=== PATIENT | male | born 1940 | race Caucasian/White ===

== ENCOUNTER 2023-03-13 16:32 | Inpatient (IN) ==
[2023-03-13] MEDS ORDERED: LIDOCAINE 5% 1 PATCH TD STA (16:43)
--- NOTE | 2023-03-13 16:47 | ED Triage Note ---
Date of Service March 13, 2023 History of Present Illness This patient was briefly evaluated while in triage. An abbreviated physical exam was performed. This patient is a 82-year-old Male who presents to the ED for evaluation of right sided posterior rib pain. He tripped and fell while walking on the [place]. On eliquis. did not hit head. no lightheadedness or dizziness. Physical Exam CONSTITUTIONAL: appears to be in pain, unable to sit down SKIN: pink, warm, dry CARDIAC: regular rate and rhythm RESPIRATORY: in no respiratory distress, lungs clear to auscultation ABDOMEN: no focal tenderness, no CVA tenderness MSK: tenderness in R posterior ribs Initial orders for labs and / or imaging were placed and patient was placed in the waiting area until a bed is available. Please see further documentation for the full ED course. MDM / Impression Impression Impression: Fall from standing, Multiple closed fractures of ribs of right side
[2023-03-13] MEDS ORDERED: fentaNYL citrate PF 100 MCG/2 ML VIAL IV STA ×2 (17:00→18:38)
[2023-03-13 17:17] LABS: Basophils # (auto) 0.06 K/uL (0.00-0.20); Basophils % (auto) 0.4 %; Eosinophils # (auto) 0.04 K/uL (0.00-0.50); Eosinophils % (auto) 0.3 %; Hematocrit (blood only) 43.7 % (42.0-52.0); Hemoglobin 14.3 g/dl (14.0-18.0); Immature Granulocytes # (auto) 0.09 K/uL (0.01-0.20); Immature Granulocytes % (auto) 0.6 %; Lymphocytes # (auto) 1.83 K/uL (1.20-3.40); Lymphocytes % (auto) 11.9 %; Mean Corpuscular Hemoglobin 29.4 pg (25.0-34.0); Mean Corpuscular Hgb Conc 32.7 g/dL (32.0-36.0); Mean Corpuscular Volume 89.9 fL (80.0-100.0); Mean Platelet Volume 9.3 fL (9.4-12.4); Monocytes # (auto) 1.07 K/uL (0.11-0.59); Neutrophils # (auto) 12.27 K/uL (1.40-6.50); Neutrophils % (auto) 79.8 %; Platelet Count 236 K/uL (130-400); RDW Coefficient of Variation 13.2 % (11.5-14.5); RDW Standard Deviation 43.3 fL (36.4-46.3); Red Blood Count 4.86 M/uL (4.70-6.10); White Blood Count 15.36 K/ul (4.8-10.8)
--- NOTE | 2023-03-13 17:20 | Emergency Department Note ---
Impression & Plan Fall from standing, Multiple closed fractures of ribs of right side ED Provider Note HISTORY OF PRESENT ILLNESS: Patient is an 82-year-old male presenting with right posterior shoulder pain after a fall from standing. Patient reports he was outside walking on his sidewalk in front of his apartment when he lost his footing and fell, landing on his right side. Denies striking his head or loss of consciousness. He is on Eliquis. He states that the fall happened around 1300 today and pain has been progressively worsening over the last few hours. He reports that certain movements make the pain worse. He also states that the pain is significantly worse when he coughs or tries to take a deep breath. He denies any abdominal pain, nausea or vomiting. Denies any chest pain. He denies passing out, chest pain or shortness of breath prior to the fall. He states he just lost his footing. ROS: as above PHYSICAL EXAM: Constitutional: Patient appears in no acute distress. HENT: Head: Normocephalic and atraumatic. Eyes: EOMI, PERRL Mouth/Throat: Mucous membranes moist. Neck: Trachea midline. Neck supple. No midline cervical spine tenderness to palpation. Cardiovascular: Tachycardic with irregular rhythm. No murmurs, rubs or gallops. Intact distal pulses. Pulmonary/Chest: No respiratory distress. Breath sounds clear and equal bilaterally. No wheezes or rales. No chest wall tenderness to palpation. Abdominal: Abdomen soft, no tenderness, rebound or guarding. Back: No midline spinal tenderness, no paraspinal tenderness, no CVA tenderness. Right posterior scapular region is tender to palpation. No ecchymosis or swelling to the area. Musculoskeletal: No edema, tenderness or deformity noted. Skin: Warm and dry. No rash, erythema, pallor or cyanosis Psychiatric: Appropriate mood and affect for situation. Neurological: Alert and keenly responsive. CN II-XII grossly intact, moving all extremities equally and fully. MDM: - Vitals signs showed hypertension and tachycardia - History obtained via patient. Patient presents with right posterior shoulder pain after fall from standing. Patient reports he was walking outside on sidewalk when he lost his footing and fell, landing on his right posterior side. Denies striking his head or loss of consciousness. He is on Eliquis. Reports the fall happened around 1300 today and the pain has been getting progressively worse over the last few hours. He reports certain movements make the pain worse and he has significant pain when he coughs or takes a deep breath. Denies any anterior chest pain. He denies any syncope or chest pain or shortness of breath prior to the fall. - Chronic conditions affecting care: HLD; CKD; COPD; HTN; Afib - Differential diagnoses include, but are not limited to: Rib fracture; pneumothorax; ACS; pneumonia; scapular fracture - Order placed for continuous cardiac monitoring. At this time, monitor showed rate of 98 bpm with normal sinus rhythm, per my interpretation. - External medical records reviewed. Pulmonary visit note dated 11/09/2022 was reviewed. Patient has a history of lung cancer and COPD with emphysema and follows for these pathologies at that clinic. - Laboratory workup interpreted by myself showed leukocytosis (WBC 15.36) with left shift; stable electrolytes; CKD - CXR negative for pneumonia, per my interpretation - CT head wo contrast negative for acute intracranial pathology. - CT cervical spine wo contrast negative for injury. - CT lumbar/thoracic spine wo contrast negative for acute injury. - CT chest wo contrast showed right-sided posterior lateral third, fourth and fifth rib fractures. - Patient was initially given 50 mcg IV fentanyl for pain control on arrival to ER. On reassessment, he is still having significant discomfort. Given additional 50 mcg of IV fentanyl. Given a lidocaine patch and 4 mg IV zofran for developed nausea. On further assessment, the patient is still complaining of significant pain. - Discussion was had with home day care provider about patient's case and need for admission - Hospitalist consulted for admission - [facility] 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 jimenez, [facility] [place] Self-catheterizes urinary bladder COPD (chronic obstructive pulmonary disease) daily and prn inh Glaucoma both eyes Lung cancer dx 2019, sx and chemo Hypertension hx Surgical History History of loop recorder 12/2021, [place] w/dr. jimenez Hx of hernia repair as a baby Hx of colonoscopy Hx of bilateral cataract extraction History of lobectomy of lung 2019, lt lower lobe due to cancer, also received chemo Hx of transurethral resection of prostate Family History Mother Lung cancer Diabetes Father Lung cancer Social History Smoking Status: Never smoker Tobacco Type: Cigarettes Age Started Using Tobacco: 20; Age Quit Using Tobacco: 67; packs per day: 2; Second Hand Exposure: Yes (hx); Do You Dip or Chew Tobacco: No; Hx Alcohol Use: Yes (quit years ago) Hx Substance Use: No Preferred Language: Latvian Communication Ability: Effective Photograph Printer Required: No Beliefs That Will Affect Care: None marital status: Single Current Living Situation: Alone current occupational status: retired Feels Safe at Home: Yes Assistive Devices: Denture - Upper, Denture - Lower and Glasses Allergies Allergies Allergy/AdvReac Type Severity Reaction Status Date / Time simvastatin [From Zocor] Allergy Unknown myalgia Verified 03/13/23 19:24 Home Meds Home Medications Medication Instructions Recorded Confirmed atorvastatin 20 mg tablet 10 mg PO 11/05/21 03/13/23 famotidine 20 mg tablet 20 mg PO QA 11/05/21 03/13/23 apixaban 2.5 mg tablet (Eliquis) 2.5 mg PO BID 02/16/23 03/13/23 vitamins A,C,U-rssj-djwztx 2,148 2 tab PO BID 02/16/23 03/13/23 mcg-113 mg-45 mg-17.4 mg tablet (PreserVision AREDS) Previous Rx's Medication Instructions Recorded albuterol sulfate 90 mcg/actuation 2 puff inhalation Q6H PRN 11/09/22 aerosol inhaler Shortness Of Breath Or Wheezing #18 grams mometasone-formoterol HFA 100 2 puff inhalation BID #3 Inhalers 11/12/22 mcg-5 mcg/actuation aerosol inhaler (Dulera) Results & Data (ED) Vital Signs Vital Signs - 24 hr 03/13/23 16:35 03/13/23 17:51 03/13/23 19:08 Temperature 36.2 C L Temperature Source Temporal Artery Scan Pulse Rate 118 H Pulse Rate [Finger] 98 H 112 H Respiratory Rate 18 18 20 Respiratory Effort / Characteristics Non-Labored Non-Labored Spontaneous Respiratory Depth Normal Normal Respiratory Pattern Regular Regular Blood Pressure 160/89 H Blood Pressure [Right Arm] 118/62 122/84 Blood Pressure Mean 112 Blood Pressure Mean [Right Arm] 80 96 Pulse Oximetry 94 98 95 Oxygen Delivery Method Room Air Room Air Sepsis Recent Fever Within 48 Hours No Sepsis New/Unexplained Change in Mental Status N/A Sepsis Action Taken by Nursing No Action Required Laboratory Data 03/13/23 16:51 03/13/23 16:51 Lab Results 03/13/23 Range/Units 16:51 WBC 15.36 H (4.8-10.8) K/ul RBC 4.86 (4.70-6.10) M/uL Hgb 14.3 (14.0-18.0) g/dl Hct 43.7 (42.0-52.0) % MCV 89.9 (80.0-100.0) fL MCH 29.4 (25.0-34.0) pg MCHC 32.7 (32.0-36.0) g/dL RDW Std Deviation 43.3 (36.4-46.3) fL RDW Coeff of Jacque 13.2 (11.5-14.5) % Plt Count 236 (130-400) K/uL MPV 9.3 L (9.4-12.4) fL Immature Gran % (Auto) 0.6 % Neut % (Auto) 79.8 % Lymph % (Auto) 11.9 % Trinity % (Auto) 7.0 % Eos % (Auto) 0.3 % Baso % (Auto) 0.4 % Neut # (Auto) 12.27 H (1.40-6.50) K/uL Lymph # (Auto) 1.83 (1.20-3.40) K/uL Trinity # (Auto) 1.07 H (0.11-0.59) K/uL Eos # (Auto) 0.04 (0.00-0.50) K/uL Baso # (Auto) 0.06 (0.00-0.20) K/uL Immature Gran # (Auto) 0.09 (0.01-0.20) K/uL PT 11.9 (9.0-12.0) Seconds INR 1.1 (0.9-1.1) APTT 28.5 (21.0-31.0) Seconds PTT Ratio 1.0 Sodium 140 (136-145) mmol/L Potassium 4.5 (3.5-5.1) mmol/L Chloride 103 (98-107) mmol/L Carbon Dioxide 26 (21-32) mmol/L Anion Gap 11 (3-11) BUN 27 H (6-23) mg/dl Creatinine 2.22 H (0.6-1.4) mg/dl Est Cr Clr Drug Dosing Not Reportable Est GFR ( Amer) 31.3 ml/min Est GFR (Non-Af Amer) 27.0 ml/min BUN/Creatinine Ratio 12.2 (10-20) Glucose 142 H (70-99(Fasting)) mg/dl Calcium 10.2 (8.6-10.3) mg/dl Total Bilirubin 0.9 (0.2-1.0) mg/dl AST 18 (13-39) U/L ALT 11 (7-52) U/L Alkaline Phosphatase 136 H (34-104) U/L Total Protein 8.0 (6.0-8.3) gm/dl Albumin 4.4 (3.4-5.0) gm/dl Globulin 3.6 (2.5-4.0) gm/dl Albumin/Globulin Ratio 1.2 (0.9-2) Administered Medications Discontinued Medications Fentanyl Citrate (Fentanyl Citrate Pf 100 Mcg/2 Ml Vial) 50 mcg IV NOW STA Stop: 03/13/23 17:01 Last Admin: 03/13/23 17:09 Dose: 50 mcg Documented By: DONNA Lidocaine (Lidocaine 5% 1 Patch) 1 patch TD NOW STA Stop: 03/13/23 16:44 Last Admin: 03/13/23 17:09 Dose: 1 patch Documented By: DONNA Ondansetron HCl (Ondansetron Inj 2 Mg/Ml 2 Ml Vial) 4 mg IV NOW STA Stop: 03/13/23 18:39 Last Admin: 03/13/23 18:44 Dose: 4 mg Documented By: DONNA Imaging Data Radiologist's Impression: Cervical Spine CT 03/13/23 16:40 CT cervical spine wo con CLINICAL HISTORY: fall, landed on R side TECHNIQUE: Multidetector row helical CT of the cervical spine was performed without administration of intravenous contrast. Coronal and sagittal reformations were obtained. Automated dose lowering techniques and/or adjustment according to patient size were utilized for this exam. Comparison: None available at the time of this dictation. FINDINGS: No acute fractures or subluxations are identified. Degenerative changes are seen in the visualized spine. The alignment is normal. Soft tissues are unremarkable. IMPRESSION: Degenerative changes without evidence of acute bony injury. ACT 112: Negative or not required by law. Electronically signed by: Jamarcus Molina M.D. 03/13/2023 5:[address] 03/13/23 16:40 CT chest diagnostic wo con, CT thoracic spine wo con CLINICAL HISTORY: fall, R posterior rib pain TECHNIQUE: Multidetector row helical CT of the chest was performed. Coronal and sagittal reformations were obtained. Automated dose lowering techniques and/or adjustment according to patient size were utilized for this exam. Dedicated images of the thoracic spine were obtained. Comparison: Comparison is made to CT thorax 01/01/2022 FINDINGS: Lungs and pleura: Emphysema and bronchial wall thickening are seen. Patient is status post right lower lobectomy with pleural thickening and small left pleural effusion. Pleural calcifications are seen. Heart and pericardium: Heart size is normal. No pericardial effusion. Vessels: Severe atherosclerotic changes in the aorta and coronary arteries. Mediastinum and iman: Subcentimeter lymph nodes are seen. Chest wall and lower neck: Unremarkable. Abdomen: A hiatal hernia is seen. Bones: Degenerative changes of the thoracic spine. Old healed rib fractures are seen. Addition, there are acute nondisplaced fractures of the right fourth, fifth, and sixth ribs posterolaterally. IMPRESSION: Nondisplaced fractures of the right posterolateral ribs are seen as above with no evidence of pneumothorax. ACT 112: Negative or not required by law. Electronically signed by: Jamarcus Molina M.D. 03/13/2023 6:[address] 03/13/23 16:40 CT head/brain wo con CLINICAL HISTORY: fall, landed R side, on eliquis Technique: Contiguous axial CT images of the head were acquired from the base of the skull to the vertex without intravenous contrast administration. Images were viewed in brain, subdural and bone windows. Automated dose lowering techniques and/or adjustment according to patient size were utilized for this exam. Comparison: None available at the time of this dictation. Findings: The ventricles, basal cisterns, and cerebral sulci are normal. There is no acute intracranial hemorrhage or evidence of acute territorial infarction. Neither mass effect, shift of the midline structures, nor abnormal extra-axial fluid collections are shown. Imaged portions of the paranasal sinuses and mastoid air cells are clear. The orbits appear normal. There are no acute fractures of the calvaria or scalp swelling. Impression: No acute intracranial hemorrhage, no evidence of acute territorial infarction or other acute intracranial disease process. ACT 112: Negative or not required by law. Electronically signed by: Jamarcus Molina M.D. 03/13/2023 5:[address] 03/13/23 16:40 CT lumbar spine wo con CLINICAL HISTORY: fall, R sided pain TECHNIQUE: Multidetector row helical CT of the lumbar spine was performed without administration of intravenous contrast. Coronal and sagittal reformations were obtained. Automated dose lowering techniques and/or adjustment according to patient size were utilized for this exam. Comparison: None available at the time of this dictation. FINDINGS: For counting purposes, the last complete intervertebral disc space is considered L5-S1. No acute fractures are identified. Degenerative changes are noted in the visualized spine. Vertebral body alignment is within normal limits. Surrounding soft tissues are unremarkable. IMPRESSION: Degenerative changes without evidence of acute bony injury. ACT 112: Negative or not required by law. Electronically signed by: Jamarcus Molina M.D. 03/13/2023 6:[address] 03/13/23 16:40 CT chest diagnostic wo con, CT thoracic spine wo con CLINICAL HISTORY: fall, R posterior rib pain TECHNIQUE: Multidetector row helical CT of the chest was performed. Coronal and sagittal reformations were obtained. Automated dose lowering techniques and/or adjustment according to patient size were utilized for this exam. Dedicated images of the thoracic spine were obtained. Comparison: Comparison is made to CT thorax 01/01/2022 FINDINGS: Lungs and pleura: Emphysema and bronchial wall thickening are seen. Patient is status post right lower lobectomy with pleural thickening and small left pleural effusion. Pleural calcifications are seen. Heart and pericardium: Heart size is normal. No pericardial effusion. Vessels: Severe atherosclerotic changes in the aorta and coronary arteries. Mediastinum and iman: Subcentimeter lymph nodes are seen. Chest wall and lower neck: Unremarkable. Abdomen: A hiatal hernia is seen. Bones: Degenerative changes of the thoracic spine. Old healed rib fractures are seen. Addition, there are acute nondisplaced fractures of the right fourth, fifth, and sixth ribs posterolaterally. IMPRESSION: Nondisplaced fractures of the right posterolateral ribs are seen as above with no evidence of pneumothorax. ACT 112: Negative or not required by law. Electronically signed by: Jamarcus Molina M.D. 03/13/2023 6:22 PM Chest X-Ray 03/13/23 17:00 XR chest 1V portable CLINICAL HISTORY: trauma; right sided posterior chest pain TECHNIQUE: Single frontal radiograph of the chest was obtained. Comparison: Comparison is made to chest radiograph 11/30/2021 FINDINGS: A loop recorder is seen. Calcified aortic knob is seen. Left retrocardiac airspace opacity is seen. Left pleural effusion is seen. Old healed right rib fractures are seen. IMPRESSION: Left pleural effusion is seen with underlying airspace opacity likely representing atelectasis. Attention on CT chest is recommended. ACT 112: Negative or not required by law. Electronically signed by: Jamarcus Molina M.D. 03/13/2023 5:26 PM Discharge Plan Visit Data Chief Complaint: Fall Stated Complaint: FALL/BACK PAIN ED Provider: Lesly Hernandez Discharge Problem: Fall from standing, Multiple closed fractures of ribs of right side Forms Stand Alone Forms: [facility] Prescriptions Prescriptions: No Action Dulera 100-5 mcg/actuation HFA aerosol inhaler 2 puff inhalation BID Qty: 3 3RF Eliquis 2.5 mg tablet 2.5 mg PO BID albuterol sulfate 90 mcg/actuation HFA aerosol inhaler 2 puff inhalation Q6H PRN (Reason: Shortness Of Breath Or Wheezing) Qty: 18 3RF atorvastatin 20 mg tablet 10 mg PO HS famotidine 20 mg tablet 20 mg PO QAM PreserVision AREDS 2,148 mcg-113 mg-45 mg-17.4mg Tablet 2 tab PO BID Rx Instructions: administer with AM and PM meals Referrals Referrals: Mir Francis, RESEARCH AND DEVELOPMENT MANAGER-C [Primary Care Provider] -
[2023-03-13 17:27] LABS: Alanine Aminotransferase 11 U/L (7-52); Albumin Globulin Ratio 1.2 (0.9-2); Albumin Level 4.4 gm/dl (3.4-5.0); Alkaline Phosphatase 136 U/L (34-104); Anion Gap 11 (3-11); Aspartate Aminotransferase 18 U/L (13-39); BUN Creatinine Ratio 12.2 (10-20); Bilirubin,Total 0.9 mg/dl (0.2-1.0); Blood Urea Nitrogen 27 mg/dl (6-23); Calcium 10.2 mg/dl (8.6-10.3); Carbon Dioxide 26 mmol/L (21-32); Chloride 103 mmol/L (98-107); Est GFR (African American) 31.3 ml/min; Globulin 3.6 gm/dl (2.5-4.0); Glucose 142 mg/dl (70-99(Fasting)); Potassium 4.5 mmol/L (3.5-5.1); Sodium 140 mmol/L (136-145)
--- NOTE | 2023-03-13 17:28 | XRay Report ---
XR chest 1V portable CLINICAL HISTORY: trauma; right sided posterior chest pain TECHNIQUE: Single frontal radiograph of the chest was obtained. Comparison: Comparison is made to chest radiograph 11/30/2021 FINDINGS: A loop recorder is seen. Calcified aortic knob is seen. Left retrocardiac airspace opacity is seen. L eft pleural effusion is seen. Old healed right rib fractures are seen. IMPRESSION: Left pleural effusion is seen with underlying airspace opacity likely representing atelectasis. Atten tion on CT chest is recommended. ACT 112: Negative or not required by law. Electronically signed by: Jamarcus Molina M.D. 03/13/2023 5:26 PM
[2023-03-13 17:40] LABS: INR 1.1 (0.9-1.1); Partial Thromboplastin Time 28.5 Seconds (21.0-31.0); Prothrombin Time 11.9 Seconds (9.0-12.0)
--- NOTE | 2023-03-13 17:55 | CT Scan Report ---
CT head/brain wo con CLINICAL HISTORY: fall, landed R side, on eliquis Technique: Contiguous axial CT images of the head were acquired from the base of the skull to the jesus lori without intravenous contrast administration. Images were viewed in brain, subdural and bone windo ws. Automated dose lowering techniques and/or adjustment according to patient size were utilized for this exam. Comparison: None available at the time of this dictation. Findings: The ventricles, basal cisterns, and cerebral sulci are normal. There is no acute intracranial hemorrh age or evidence of acute territorial infarction. Neither mass effect, shift of the midline structures , nor abnormal extra-axial fluid collections are shown. Imaged portions of the paranasal sinuses and mastoid air cells are clear. The orbits appear normal. There are no acute fractures of the calvaria or scalp swelling. Impression: No acute intracranial hemorrhage, no evidence of acute territorial infarction or other acute intracra nial disease process. ACT 112: Negative or not required by law. Electronically signed by: Jamarcus Molina M.D. 03/13/2023 5:54 PM
--- NOTE | 2023-03-13 18:00 | CT Scan Report ---
CT cervical spine wo con CLINICAL HISTORY: fall, landed on R side TECHNIQUE: Multidetector row helical CT of the cervical spine was performed without administration of intravenous contrast. Coronal and sagittal reformations were obtained. Automated dose lowering techn iques and/or adjustment according to patient size were utilized for this exam. Comparison: None available at the time of this dictation. FINDINGS: No acute fractures or subluxations are identified. Degenerative changes are seen in the visualized sp ine. The alignment is normal. Soft tissues are unremarkable. IMPRESSION: Degenerative changes without evidence of acute bony injury. ACT 112: Negative or not required by law. Electronically signed by: Jamarcus Molina M.D. 03/13/2023 5:58 PM
--- NOTE | 2023-03-13 18:24 | CT Scan Report ---
CT chest diagnostic wo con, CT thoracic spine wo con CLINICAL HISTORY: fall, R posterior rib pain TECHNIQUE: Multidetector row helical CT of the chest was performed. Coronal and sagittal reformations were obtained. Automated dose lowering techniques and/or adjustment according to patient size were u tilized for this exam. Dedicated images of the thoracic spine were obtained. Comparison: Comparison is made to CT thorax 01/01/2022 FINDINGS: Lungs and pleura: Emphysema and bronchial wall thickening are seen. Patient is status post right lowe r lobectomy with pleural thickening and small left pleural effusion. Pleural calcifications are seen. Heart and pericardium: Heart size is normal. No pericardial effusion. Vessels: Severe atherosclerotic changes in the aorta and coronary arteries. Mediastinum and iman: Subcentimeter lymph nodes are seen. Chest wall and lower neck: Unremarkable. Abdomen: A hiatal hernia is seen. Bones: Degenerative changes of the thoracic spine. Old healed rib fractures are seen. Addition, there are acute nondisplaced fractures of the right fourth, fifth, and sixth ribs posterolaterally. IMPRESSION: Nondisplaced fractures of the right posterolateral ribs are seen as above with no evidence of pneumot horax. ACT 112: Negative or not required by law. Electronically signed by: Jamarcus Molina M.D. 03/13/2023 6:22 PM
--- NOTE | 2023-03-13 18:29 | CT Scan Report ---
CT lumbar spine wo con CLINICAL HISTORY: fall, R sided pain TECHNIQUE: Multidetector row helical CT of the lumbar spine was performed without administration of i ntravenous contrast. Coronal and sagittal reformations were obtained. Automated dose lowering techniq ues and/or adjustment according to patient size were utilized for this exam. Comparison: None available at the time of this dictation. FINDINGS: For counting purposes, the last complete intervertebral disc space is considered L5-S1. No acute fractures are identified. Degenerative changes are noted in the visualized spine. Vertebral body alignment is within normal limits. Surrounding soft tissues are unremarkable. IMPRESSION: Degenerative changes without evidence of acute bony injury. ACT 112: Negative or not required by law. Electronically signed by: Jamarcus Molina M.D. 03/13/2023 6:27 PM
[2023-03-13] MEDS ORDERED: ONDANSETRON INJ 2 MG/ML 2 ML VIAL IV STA (18:38)
[2023-03-13] MEDS ORDERED: HYDROCODONE/ACETAMOPHEN 5/325MG TAB PO PRN (20:44)
--- NOTE | 2023-03-13 20:53 | History & Physical Report ---
Date of Service March 13, 2023 Assessment & Plan (1) Multiple closed fractures of ribs of right side: (2) Fall from standing: (3) Acute kidney injury superimposed on chronic kidney disease: (4) History of loop recorder: (5) COPD with emphysema: (6) BPH NOS w ur obs/LUTS: (7) Neurogenic bladder: (8) Stage 3b chronic kidney disease: (9) COPD (chronic obstructive pulmonary disease): (10) Atrial fibrillation: Plan Multiple rib fractures on right side involving fourth, fifth and sixth posterior lateral ribs- Causing splinting when breathing, with audible rattling and mucous clearing issues Acetaminophen 650 mg by mouth every 6 hours as needed for mild pain or fever Hopkins 5/325, 1 every 6 hours as needed for moderate pain Hopkins 5/325, 2 every 6 hours as needed for severe pain Continue Lidoderm patch begun in ED COPD with emphysema/acute on chronic respiratory failure with hypoxia- Continue Breo elliptica 1 puff daily DuoNebs every 2 hours as needed Guaifenesin extended release 1200 mg p.o. twice daily Continue incentive spirometry Patient is having significant issues with taking a deep breath due to rib cage pain, and is at risk for secondary pneumonias. Continue incentive spirometry Atrial fibrillation- Continue apixaban 2.5 mg p.o. twice daily Acute kidney injury superimposed on CKD- Creatinine 2.22, with base range 1.91-2.47 Repeat laboratories in a.m. Neurogenic bladder- Patient straight caths about every 6 hours at home Patient with Wood catheter placed while in hospital for ease of care while having respiratory difficulties History of Present Illness Chief Complaint: The patient presents to the emergency department after a ground-level fall that occurred while he was outside walking on the sidewalk, had lost his footing and fell, landing on his right side. Primary Care Provider: Mir Francis, BREE-C The patient is an 82-year-old male with a past medical history including vitamin D deficiency, CKD, elevated PSA, ex-smoker, COPD with emphysema, BPH with LUTS, neurogenic bladder requiring straight cathing approximately every 6 hours, hypertension, lung cancer, and atrial fibrillation on apixaban. The patient presents to the emergency department with right sided chest wall pain after the fall as noted above. Chest x-ray revealed right fourth, fifth and sixth posterior lateral rib fractures. Otherwise, CT scan of the thoracic spine, lumbar spine, cervical spine and head were all normal except for the noted rib fractures Allergies Allergy/AdvReac Type Severity Reaction Status Date / Time simvastatin [From Zocor] Allergy Unknown myalgia Verified 03/13/23 19:24 Home Medications Medication Instructions Recorded Confirmed Type atorvastatin 20 mg tablet 10 mg PO HS 11/05/21 03/13/23 History famotidine 20 mg tablet 20 mg PO QAM 11/05/21 03/13/23 History albuterol sulfate 90 mcg/actuation 2 puff inhalation Q6H PRN 11/09/22 03/13/23 Rx aerosol inhaler Shortness Of Breath Or Wheezing #18 grams mometasone-formoterol HFA 100 2 puff inhalation BID #3 Inhalers 11/12/22 03/13/23 Rx mcg-5 mcg/actuation aerosol inhaler (Dulera) apixaban 2.5 mg tablet (Eliquis) 2.5 mg PO BID 02/16/23 03/13/23 History vitamins A,C,Z-pyhl-pexzjx 2,148 2 tab PO BID 02/16/23 03/13/23 History mcg-113 mg-45 mg-17.4 mg tablet (PreserVision AREDS) Past Med/Surg History Medical History Macular degeneration of right eye Shortness of breath on exertion GERD (gastroesophageal reflux disease) Hyperlipidemia 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 jimenez, mnp Self-catheterizes urinary bladder COPD (chronic obstructive pulmonary disease) daily and prn inh Glaucoma both eyes Lung cancer dx 2019, sx and chemo Hypertension hx Surgical History History of loop recorder 12/2021, [place] w/dr. jimenez Hx of hernia repair as a baby Hx of colonoscopy Hx of bilateral cataract extraction History of lobectomy of lung 2019, lt lower lobe due to cancer, also received chemo Hx of transurethral resection of prostate Family History Mother Lung cancer Diabetes Father Lung cancer Social History Smoking Status: Former smoker Tobacco Type: Cigarettes Age Started Using Tobacco: 20; Age Quit Using Tobacco: 67; packs per day: 2; Cigarettes Per Day: 2 packs a day.; Second Hand Exposure: No; Do You Dip or Chew Tobacco: No; Tobacco Cessation Education Requested by Patient: No Hx Alcohol Use: No Hx Substance Use: No Preferred Language: Maltese Communication Ability: Effective Hand Sprayer Required: No Beliefs That Will Affect Care: None marital status: Single Current Living Situation: Alone current occupational status: retired Other Information That Helps Us Care for You: No Feels Safe at Home: Yes Safety Concerns: Feels Safe At This Time Assistive Devices: Denture - Upper, Denture - Lower and Glasses Review of Systems Review of Systems: The patient denies chest pain, palpitations, lower extremity swelling, sore throat, fevers, chills, sweats, nausea, vomiting, diarrhea , constipation, abdominal pain, pelvic pain, blood in urine or stool, dysuria, urinary frequency or urgency, lightheadedness, dizziness, headache, memory loss, loss of consciousness, rash, abnormal bruising or bleeding, focal or generalized weakness, numbness or tingling in arms or legs, generalized arthralgias or myalgias, neck pain, or night sweats. The review of systems is otherwise negative other than for that already noted above, and at least 10 systems have been reviewed. Physical Exam Physical Exam: The patient is awake, alert and oriented 3, well developed and well nourished, normocephalic and atraumatic, lying in bed and in mild distress secondary to shortness of breath due to splinting HEENT--PERRL, EOMI, mucous membranes and oropharynx dry. Neck--supple. No JVD. No bruits. Thyroid normal, trachea midline, no adenopathy. Heart--normal S1 and S2. No murmurs, rubs or gallops. Lungs--coarse breath sounds throughout. Mild respiratory distress due to spli nting and intermittent difficulty with secretions. No accessory muscle use. Abdomen--normal bowel sounds and soft. Nontender. Nondistended, no hernias or masses, no organomegaly. Extremities--no cyanosis or clubbing. No edema. Dermatologic--normal skin turgor, normal color, no abnormal lymph nodes, no rash. Neurologic--cranial nerves II through XII grossly intact. Rheumatologic--limited exam due to rib cage pain Psychiatric--normal affect. Results & Data Results & Data Vital Signs (Past 12 Hours) Vital Signs Temp Pulse Pulse Resp BP BP Pulse Ox 03/13/23 19:08 112 H 20 122/84 95 03/13/23 17:51 98 H 18 118/62 98 03/13/23 16:35 36.2 C L 118 H 18 160/89 H 94 O2 Del Method 03/13/23 19:08 Room Air 03/13/23 17:51 03/13/23 16:35 Room Air Laboratory Results Laboratory Results WBC 15.36 K/ul (4.8-10.8) H 03/13/23 16:51 RBC 4.86 M/uL (4.70-6.10) 03/13/23 16:51 Hgb 14.3 g/dl (14.0-18.0) 03/13/23 16:51 Hct 43.7 % (42.0-52.0) 03/13/23 16:51 MCV 89.9 fL (80.0-100.0) 03/13/23 16:51 MCH 29.4 pg (25.0-34.0) 03/13/23 16:51 MCHC 32.7 g/dL (32.0-36.0) 03/13/23 16:51 RDW Std Deviation 43.3 fL (36.4-46.3) 03/13/23 16:51 RDW Coeff of Jacque 13.2 % (11.5-14.5) 03/13/23 16:51 Plt Count 236 K/uL (130-400) 03/13/23 16:51 MPV 9.3 fL (9.4-12.4) L 03/13/23 16:51 Immature Gran % (Auto) 0.6 % 03/13/23 16:51 Neut % (Auto) 79.8 % 03/13/23 16:51 Lymph % (Auto) 11.9 % 03/13/23 16:51 Mcpherson % (Auto) 7.0 % 03/13/23 16:51 Eos % (Auto) 0.3 % 03/13/23 16:51 Baso % (Auto) 0.4 % 03/13/23 16:51 Neut # (Auto) 12.27 K/uL (1.40-6.50) H 03/13/23 16:51 Lymph # (Auto) 1.83 K/uL (1.20-3.40) 03/13/23 16:51 Mcpherson # (Auto) 1.07 K/uL (0.11-0.59) H 03/13/23 16:51 Eos # (Auto) 0.04 K/uL (0.00-0.50) 03/13/23 16:51 Baso # (Auto) 0.06 K/uL (0.00-0.20) 03/13/23 16:51 Immature Gran # (Auto) 0.09 K/uL (0.01-0.20) 03/13/23 16:51 PT 11.9 Seconds (9.0-12.0) 03/13/23 16:51 INR 1.1 (0.9-1.1) 03/13/23 16:51 APTT 28.5 Seconds (21.0-31.0) 03/13/23 16:51 PTT Ratio 1.0 03/13/23 16:51 Sodium 140 mmol/L (136-145) 03/13/23 16:51 Potassium 4.5 mmol/L (3.5-5.1) 03/13/23 16:51 Chloride 103 mmol/L (98-107) 03/13/23 16:51 Carbon Dioxide 26 mmol/L (21-32) 03/13/23 16:51 Anion Gap 11 (3-11) 03/13/23 16:51 BUN 27 mg/dl (6-23) H 03/13/23 16:51 Creatinine 2.22 mg/dl (0.6-1.4) H 03/13/23 16:51 Est Cr Clr Drug Dosing Not Reportable 03/13/23 16:51 Est GFR ( Amer) 31.3 ml/min 03/13/23 16:51 Est GFR (Non-Af Amer) 27.0 ml/min 03/13/23 16:51 BUN/Creatinine Ratio 12.2 (10-20) 03/13/23 16:51 Glucose 142 mg/dl (70-99(Fasting)) H 03/13/23 16:51 Calcium 10.2 mg/dl (8.6-10.3) 03/13/23 16:51 Total Bilirubin 0.9 mg/dl (0.2-1.0) 03/13/23 16:51 AST 18 U/L (13-39) 03/13/23 16:51 ALT 11 U/L (7-52) 03/13/23 16:51 Alkaline Phosphatase 136 U/L (34-104) H 03/13/23 16:51 Total Protein 8.0 gm/dl (6.0-8.3) 03/13/23 16:51 Albumin 4.4 gm/dl (3.4-5.0) 03/13/23 16:51 Globulin 3.6 gm/dl (2.5-4.0) 03/13/23 16:51 Albumin/Globulin Ratio 1.2 (0.9-2) 03/13/23 16:[address] 03/13/23 16:40 CT cervical spine wo con CLINICAL HISTORY: fall, landed on R side TECHNIQUE: Multidetector row helical CT of the cervical spine was performed without administration of intravenous contrast. Coronal and sagittal reformations were obtained. Automated dose lowering techniques and/or adjustment according to patient size were utilized for this exam. Comparison: None available at the time of this dictation. FINDINGS: No acute fractures or subluxations are identified. Degenerative changes are seen in the visualized spine. The alignment is normal. Soft tissues are unremarkable. IMPRESSION: Degenerative changes without evidence of acute bony injury. ACT 112: Negative or not required by law. Electronically signed by: Jamarcus Molina M.D. 03/13/2023 5:[address] 03/13/23 16:40 CT chest diagnostic wo con, CT thoracic spine wo con CLINICAL HISTORY: fall, R posterior rib pain TECHNIQUE: Multidetector row helical CT of the chest was performed. Coronal and sagittal reformations were obtained. Automated dose lowering techniques and/or adjustment according to patient size were utilized for this exam. Dedicated images of the thoracic spine were obtained. Comparison: Comparison is made to CT thorax 01/01/2022 FINDINGS: Lungs and pleura: Emphysema and bronchial wall thickening are seen. Patient is status post right lower lobectomy with pleural thickening and small left pleural effusion. Pleural calcifications are seen. Heart and pericardium: Heart size is normal. No pericardial effusion. Vessels: Severe atherosclerotic changes in the aorta and coronary arteries. Mediastinum and iman: Subcentimeter lymph nodes are seen. Chest wall and lower neck: Unremarkable. Abdomen: A hiatal hernia is seen. Bones: Degenerative changes of the thoracic spine. Old healed rib fractures are seen. Addition, there are acute nondisplaced fractures of the right fourth, fifth, and sixth ribs posterolaterally. IMPRESSION: Nondisplaced fractures of the right posterolateral ribs are seen as above with no evidence of pneumothorax. ACT 112: Negative or not required by law. Electronically signed by: Jamarcus Molina M.D. 03/13/2023 6:[address] 03/13/23 16:40 CT head/brain wo con CLINICAL HISTORY: fall, landed R side, on eliquis Technique: Contiguous axial CT images of the head were acquired from the base of the skull to the vertex without intravenous contrast administration. Images were viewed in brain, subdural and bone windows. Automated dose lowering techniques and/or adjustment according to patient size were utilized for this exam. Comparison: None available at the time of this dictation. Findings: The ventricles, basal cisterns, and cerebral sulci are normal. There is no acute intracranial hemorrhage or evidence of acute territorial infarction. Neither mass effect, shift of the midline structures, nor abnormal extra-axial fluid collections are shown. Imaged portions of the paranasal sinuses and mastoid air cells are clear. The orbits appear normal. There are no acute fractures of the calvaria or scalp swelling. Impression: No acute intracranial hemorrhage, no evidence of acute territorial infarction or other acute intracranial disease process. ACT 112: Negative or not required by law. Electronically signed by: Jamarcus Molina M.D. 03/13/2023 5:[address] 03/13/23 16:40 CT lumbar spine wo con CLINICAL HISTORY: fall, R sided pain TECHNIQUE: Multidetector row helical CT of the lumbar spine was performed without administration of intravenous contrast. Coronal and sagittal reformations were obtained. Automated dose lowering techniques and/or adjustment according to patient size were utilized for this exam. Comparison: None available at the time of this dictation. FINDINGS: For counting purposes, the last complete intervertebral disc space is considered L5-S1. No acute fractures are identified. Degenerative changes are noted in the visualized spine. Vertebral body alignment is within normal limits. Surrounding soft tissues are unremarkable. IMPRESSION: Degenerative changes without evidence of acute bony injury. ACT 112: Negative or not required by law. Electronically signed by: Jamarcus Molina M.D. 03/13/2023 6:[address] 03/13/23 16:40 CT chest diagnostic wo con, CT thoracic spine wo con CLINICAL HISTORY: fall, R posterior rib pain TECHNIQUE: Multidetector row helical CT of the chest was performed. Coronal and sagittal reformations were obtained. Automated dose lowering techniques and/or adjustment according to patient size were utilized for this exam. Dedicated images of the thoracic spine were obtained. Comparison: Comparison is made to CT thorax 01/01/2022 FINDINGS: Lungs and pleura: Emphysema and bronchial wall thickening are seen. Patient is status post right lower lobectomy with pleural thickening and small left pleural effusion. Pleural calcifications are seen. Heart and pericardium: Heart size is normal. No pericardial effusion. Vessels: Severe atherosclerotic changes in the aorta and coronary arteries. Mediastinum and iman: Subcentimeter lymph nodes are seen. Chest wall and lower neck: Unremarkable. Abdomen: A hiatal hernia is seen. Bones: Degenerative changes of the thoracic spine. Old healed rib fractures are seen. Addition, there are acute nondisplaced fractures of the right fourth, fifth, and sixth ribs posterolaterally. IMPRESSION: Nondisplaced fractures of the right posterolateral ribs are seen as above with no evidence of pneumothorax. ACT 112: Negative or not required by law. Electronically signed by: Jamarcus Molina M.D. 03/13/2023 6:22 PM Chest X-Ray 03/13/23 17:00 XR chest 1V portable CLINICAL HISTORY: trauma; right sided posterior chest pain TECHNIQUE: Single frontal radiograph of the chest was obtained. Comparison: Comparison is made to chest radiograph 11/30/2021 FINDINGS: A loop recorder is seen. Calcified aortic knob is seen. Left retrocardiac airspace opacity is seen. Left pleural effusion is seen. Old healed right rib fractures are seen. IMPRESSION: Left pleural effusion is seen with underlying airspace opacity likely representing atelectasis. Attention on CT chest is recommended. ACT 112: Negative or not required by law. Electronically signed by: Jamarcus Molina M.D. 03/13/2023 5:26 PM Code Status & VTE Plan Code Status Full code VTE Prophylaxis Plan VTE Prophylaxis will be ordered: Yes PG Care Time/CCT Total # of Minutes Spent Total Time Spent with Patient: Total time spent is greater than 50% in coordination of care (as documented) at patient's floor/unit and/or counseling patient: Coding Level of Care Code 87574 INT INP/OBS CARE 3/75MIN Diagnoses Multiple closed fractures of ribs of right side S22.41XA Fall from standing W19.XXXA Acute kidney injury superimposed on chronic kidney disease N17.9; N18.9 History of loop recorder Z98.890 COPD with emphysema J43.9 BPH NOS w ur obs/LUTS N40.1 Neurogenic bladder N31.9 Stage 3b chronic kidney disease N18.32 COPD (chronic obstructive pulmonary disease) J44.9 Paroxysmal atrial fibrillation I48.0 Atrial fibrillation type: paroxysmal (10) Atrial fibrillation Atrial fibrillation type: paroxysmal Qualified Code(s): I48.0 - Paroxysmal atrial fibrillation
[2023-03-13] MEDS: HYDROCODONE/ACETAMOPHEN 5/325MG TAB PO PRN (22:17)
[2023-03-13] MEDS ORDERED: ACETAMINOPHEN 325 MG TAB PO PRN (22:34)
[2023-03-13] MEDS ORDERED: ALBUTEROL HFA 8 GM INHALER INH PRN (22:34)
[2023-03-13] MEDS ORDERED: Patient's HEIGHT &/or WEIGHT Needed ONE (22:45)
[2023-03-14] MEDS: APIXABAN 2.5 MG TAB PO SCH ×3 (00:07→20:21)
[2023-03-14] MEDS: ATORVASTATIN 10 MG TAB PO SCH ×2 (00:07→20:22)
[2023-03-14] MEDS: CEROVITE ADV FORMULA TAB PO SCH ×3 (00:08→17:34)
[2023-03-14] MEDS ORDERED: ALBUT/IPRATROP 3MG/0.5MG NEB 3 ML VIAL NEB PRN (05:25)
[2023-03-14] MEDS: HYDROCODONE/ACETAMOPHEN 5/325MG TAB PO PRN (07:52)
[2023-03-14] MEDS: FLUTICASONE/VILANTEROL 200/25MCG 14 PUFFS/INHALER INH SCH (07:57)
[2023-03-14] MEDS: LIDOCAINE 5% 1 PATCH TD SCH (08:00)
[2023-03-14 08:18] LABS: Basophils # (auto) 0.04 K/uL (0.00-0.20); Basophils % (auto) 0.5 %; Eosinophils % (auto) 1.2 %; Hemoglobin 11.6 g/dl (14.0-18.0); Immature Granulocytes # (auto) 0.02 K/uL (0.01-0.20); Immature Granulocytes % (auto) 0.2 %; Lymphocytes # (auto) 1.69 K/uL (1.20-3.40); Lymphocytes % (auto) 21.1 %; Mean Corpuscular Hemoglobin 29.3 pg (25.0-34.0); Mean Corpuscular Hgb Conc 33.1 g/dL (32.0-36.0); Mean Corpuscular Volume 88.4 fL (80.0-100.0); Mean Platelet Volume 9.3 fL (9.4-12.4); Monocytes % (auto) 12.5 %; Neutrophils # (auto) 5.17 K/uL (1.40-6.50); Neutrophils % (auto) 64.5 %; Platelet Count 161 K/uL (130-400); RDW Coefficient of Variation 13.4 % (11.5-14.5); RDW Standard Deviation 43.6 fL (36.4-46.3); Red Blood Count 3.96 M/uL (4.70-6.10); White Blood Count 8.02 K/ul (4.8-10.8)
[2023-03-14 08:40] LABS: Albumin Level 3.8 gm/dl (3.4-5.0); BUN Creatinine Ratio 14.9 (10-20); Calcium 9.4 mg/dl (8.6-10.3); Creatinine Clr Calc Pharmacy 31.1 ml/min; Est GFR (African American) 35.3 ml/min; Est GFR (Non-African American) 30.4 ml/min; Magnesium 1.9 mg/dl (1.7-2.4); Phosphorus 4.3 mg/dl (2.5-4.9); Potassium 4.4 mmol/L (3.5-5.1)
[2023-03-14] MEDS ORDERED: guaiFENesin 600 MG TABCR PO SCH (09:00)
[2023-03-14] MEDS ORDERED: FAMOTIDINE 20 MG TAB PO SCH (09:00)
--- NOTE | 2023-03-14 09:41 | Hospitalist Progress Note ---
Date of Service March 14, 2023 Assessment & Plan (1) Multiple closed fractures of ribs of right side: Plan: Mechanical fall Multiple rib fractures on right side involving fourth, fifth and sixth posterior lateral ribs- Causing splinting when breathing, with audible rattling and mucous clearing issues patient will have scheduled acetaminophen schedule tramadol and as needed Continue Lidoderm patch begun in ED start senekot in am 03/15 Pt has history of loop recorder and atrial fibrillation on apixiban, not on rate control (2) Acute kidney injury superimposed on chronic kidney disease: Plan: Acute kidney injury superimposed on CKD-3 Creatinine 2.22, with base range 1.91-2.47 (3) COPD with emphysema: Plan: COPD with emphysema/acute on chronic respiratory failure with hypoxia- Continue Breo elliptica 1 puff daily DuoNebs every 2 hours as needed Continue incentive spirometry Patient is having significant issues with taking a deep breath due to rib cage pain, and is at risk for secondary pneumonias. Continue incentive spirometry (4) Neurogenic bladder: Plan: Neurogenic bladder- Patient straight caths about every 6 hours at home Patient with Wood catheter placed while in hospital for ease of care while having respiratory difficulties has BPH with LUTS Plan PT/OT eval since lives alone may need rehab reinforced incentive spirometry to avoid atelectasis Admission and Anticipated Discharge Date Admission Date: March 13, 2023 Subjective patient is significant pain mostly when moving or taking deep breath. He had a bowel movement 1 day ago but no bowel movement today. He definitely is uncomfortable with for pain control Physical Exam Physical Exam: card exam is regular he does have right-sided splinting decreased air movement no wheeze Results & Data Results & Data Vital Signs (Past 12 Hours) Vital Signs Temp Pulse Pulse Resp BP Pulse Ox O2 Del Method 03/14/23 07:58 98.1 F 74 18 130/74 96 Nasal Cannula 03/14/23 00:05 94 H 162/82 H 94 Nasal Cannula 03/13/23 22:34 Nasal Cannula 03/13/23 22:34 Nasal Cannula 03/13/23 22:34 97.7 F 117 H 18 180/95 H 93 Nasal Cannula 03/13/23 22:00 87 16 168/89 H 90 Room Air O2 Flow Rate 03/14/23 07:58 3 03/14/23 00:05 3 03/13/23 22:34 3 03/13/23 22:34 3 03/13/23 22:34 3 03/13/23 22:00 Laboratory Results reviewed CBC reviewed chemistry PG Care Time/CCT Total # of Minutes Spent Total Time Spent with Patient: Total time spent is greater than 50% in coordination of care (as documented) at patient's floor/unit and/or counseling patient: Coding Level of Care Code 58198 SUB INP/OBS CARE 2/35MIN Diagnoses Multiple closed fractures of ribs of right side S22.41XA Acute kidney injury superimposed on chronic kidney disease N17.9; N18.9 COPD with emphysema J43.9 Neurogenic bladder N31.9
[2023-03-14] MEDS ORDERED: oxyCODONE HCL IR 5 MG TAB (IMMEDIATE RELEASE) PO PRN (18:02)
[2023-03-14] MEDS ORDERED: LIDOCAINE 5% 1 PATCH TD STA (18:03)
[2023-03-14] MEDS: ACETAMINOPHEN 500 MG TAB PO SCH (20:28)
[2023-03-14] MEDS ORDERED: traMADol HCL 50 MG TABLET PO SCH (21:00)
[2023-03-14] MEDS ORDERED: FAMOTIDINE 20 MG TAB PO PRN (21:51)
[2023-03-14] MEDS ORDERED: POLYETHYLENE (MIRALAX) 17 GM PACK PO PRN (21:51)
[2023-03-14] MEDS: ONDANSETRON INJ 2 MG/ML 2 ML VIAL IV PRN (22:02)
[2023-03-15] MEDS: ONDANSETRON INJ 2 MG/ML 2 ML VIAL IV PRN ×2 (04:29→10:33)
[2023-03-15] MEDS ORDERED: METOCLOPRAMIDE HCL INJ 5 MG/ML 2 ML VIAL IV ONE (05:15)
[2023-03-15] MEDS ORDERED: PANTOprazole 40 MG in SYRINGE 0 ML IV ONE (05:15)
[2023-03-15 05:27] LABS: Gastric Occult Blood Positive (Negative); pH Gastric Fluid 3
[2023-03-15 07:36] LABS: Basophils # (auto) 0.03 K/uL (0.00-0.20); Basophils % (auto) 0.3 %; Eosinophils # (auto) 0.03 K/uL (0.00-0.50); Eosinophils % (auto) 0.3 %; Hematocrit (blood only) 37.1 % (42.0-52.0); Hemoglobin 12.1 g/dl (14.0-18.0); Immature Granulocytes # (auto) 0.05 K/uL (0.01-0.20); Immature Granulocytes % (auto) 0.5 %; Lymphocytes # (auto) 0.84 K/uL (1.20-3.40); Lymphocytes % (auto) 7.6 %; Mean Corpuscular Hemoglobin 29.4 pg (25.0-34.0); Mean Corpuscular Hgb Conc 32.6 g/dL (32.0-36.0); Mean Platelet Volume 9.4 fL (9.4-12.4); Monocytes # (auto) 0.79 K/uL (0.11-0.59); Monocytes % (auto) 7.2 %; Neutrophils # (auto) 9.26 K/uL (1.40-6.50); Neutrophils % (auto) 84.1 %; Platelet Count 166 K/uL (130-400); RDW Coefficient of Variation 13.1 % (11.5-14.5); Red Blood Count 4.12 M/uL (4.70-6.10)
[2023-03-15 08:02] LABS: Albumin Level 3.9 gm/dl (3.4-5.0); BUN Creatinine Ratio 17.6 (10-20); Creatinine Clr Calc Pharmacy 32.4 ml/min; Magnesium 1.9 mg/dl (1.7-2.4); Phosphorus 3.7 mg/dl (2.5-4.9); Potassium 4.4 mmol/L (3.5-5.1)
[2023-03-15] MEDS: FAMOTIDINE 20 MG in SYRINGE 3 ML IV SCH (09:29)
[2023-03-15] MEDS: LIDOCAINE 5% 1 PATCH TD SCH (09:33)
--- NOTE | 2023-03-15 10:42 | XRay Report ---
KUB CLINICAL HISTORY: Nausea and vomiting. Gastric occult positive. FINDINGS: An AP, portable, supine abdominal radiograph is correlated with abdominal CT dated 2. There is a nonobstructed abdominal bowel gas pattern. There is mild gaseous distention of the colo n. No evidence of intraperitoneal free air is seen on this supine image. There are no abnormal abdomi nal calcifications. The skeletal structures are osteopenic and appear intact. There is moderate lumbo sacral spondylosis. IMPRESSION: No acute abnormality is identified. Electronically signed by: Michel Mart M.D. 03/15/2023 10:40 AM
[2023-03-15] MEDS: CEROVITE ADV FORMULA TAB PO SCH ×3 (11:32→18:16)
[2023-03-15] MEDS: APIXABAN 2.5 MG TAB PO SCH ×2 (11:33→20:56)
[2023-03-15] MEDS: ACETAMINOPHEN 500 MG TAB PO SCH ×3 (11:33→20:56)
[2023-03-15] MEDS: FLUTICASONE/VILANTEROL 200/25MCG 14 PUFFS/INHALER INH SCH (11:33)
[2023-03-15] MEDS: DOCUSATE SODIUM/SENNA 50/8.6MG TAB PO SCH (11:33)
--- NOTE | 2023-03-15 17:00 | Hospitalist Progress Note ---
Date of Service March 15, 2023 Assessment & Plan (1) Multiple closed fractures of ribs of right side: Plan: Mechanical fall Multiple rib fractures on right side involving fourth, fifth and sixth posterior lateral ribs- Causing splinting when breathing, with audible rattling and mucous clearing issues patient will have scheduled acetaminophen schedule tramadol caused nausea vomiting this was discontinued. Continue Lidoderm patch begun in ED start senekot in am 03/15 Pt has history of loop recorder and atrial fibrillation on apixiban, not on rate control (2) Acute kidney injury superimposed on chronic kidney disease: Plan: Acute kidney injury superimposed on CKD-3 seems stable at this time Creatinine 2.22, with base range 1.91-2.47 (3) COPD with emphysema: Plan: COPD with emphysema/acute on chronic respiratory failure with hypoxia- Continue Breo elliptica 1 puff daily DuoNebs every 2 hours as needed Continue incentive spirometry Patient is having significant issues with taking a deep breath due to rib cage pain, and is at risk for secondary pneumonias. Continue incentive spirometry (4) Neurogenic bladder: Plan: Neurogenic bladder- Patient straight caths about every 6 hours at home Patient with Wood catheter placed while in hospital for ease of care while having respiratory difficulties has BPH with LUTS Plan PT/OT eval since lives alone PT feels patient may go home with home health likely anticipate day of discharge will be a 03/17/2023 reinforced incentive spirometry to avoid atelectasis Admission and Anticipated Discharge Date Admission Date: March 14, 2023 Subjective Patient had untoward reaction to tramadol having increased nausea and vomiting. This was stopped and the symptoms resolved. KUB was checked to rule out obstipation or bowel obstruction and this was negative his KUB was read as normal. Patient family is called and updated. Physical Exam Physical Exam: Card exam is regular lung exam is clear with exception of splinting from his pa in. Abdomen NABS soft and nontender Results & Data Results & Data Vital Signs (Past 12 Hours) Vital Signs Temp Pulse Resp BP BP Pulse Ox Pulse Ox 03/15/23 15:38 98.8 F 93 H 18 146/79 H 94 03/15/23 13:56 92 03/15/23 10:29 97.9 F 92 H 18 161/75 H 93 03/15/23 08:15 03/15/23 08:03 97.7 F 87 16 155/77 H 92 03/15/23 05:06 97.5 F L 77 16 170/81 H 94 Pulse Ox Pulse Ox O2 Del Method O2 Flow Rate O2 Flow Rate O2 Flow Rate O2 Flow Rate 03/15/23 15:38 Nasal Cannula 2 03/15/23 13:56 92 87 L 2 2 0 03/15/23 10:29 Nasal Cannula 2 03/15/23 08:15 Nasal Cannula 2 03/15/23 08:03 Nasal Cannula 2 03/15/23 05:06 Nasal Cannula 3 Laboratory Results Reviewed CBC reviewed chemistry Gastroccult positive likely from [place] from vomiting PG Care Time/CCT Total # of Minutes Spent Total Time Spent with Patient: Total time spent is greater than 50% in coordination of care (as documented) at patient's floor/unit and/or counseling patient: Coding Level of Care Code 97893 SUB INP/OBS CARE 2/35MIN Diagnoses Multiple closed fractures of ribs of right side S22.41XA Acute kidney injury superimposed on chronic kidney disease N17.9; N18.9 COPD with emphysema J43.9 Neurogenic bladder N31.9
[2023-03-15] MEDS: ATORVASTATIN 10 MG TAB PO SCH (20:56)
[2023-03-16] MEDS ORDERED: HYDROmorphone INJ 0.5 MG/0.5 ML SYR IV STA (03:53)
[2023-03-16] MEDS ORDERED: traMADol HCL 50 MG TABLET PO STA (03:57)
[2023-03-16 07:32] LABS: Basophils # (auto) 0.04 K/uL (0.00-0.20); Basophils % (auto) 0.5 %; Eosinophils # (auto) 0.11 K/uL (0.00-0.50); Eosinophils % (auto) 1.4 %; Hematocrit (blood only) 33.4 % (42.0-52.0); Hemoglobin 11.3 g/dl (14.0-18.0); Immature Granulocytes # (auto) 0.03 K/uL (0.01-0.20); Immature Granulocytes % (auto) 0.4 %; Lymphocytes % (auto) 15.6 %; Mean Corpuscular Hemoglobin 29.5 pg (25.0-34.0); Mean Corpuscular Hgb Conc 33.8 g/dL (32.0-36.0); Mean Corpuscular Volume 87.2 fL (80.0-100.0); Mean Platelet Volume 9.1 fL (9.4-12.4); Monocytes # (auto) 0.74 K/uL (0.11-0.59); Monocytes % (auto) 9.6 %; Neutrophils # (auto) 5.58 K/uL (1.40-6.50); Neutrophils % (auto) 72.5 %; Platelet Count 156 K/uL (130-400); RDW Coefficient of Variation 13.1 % (11.5-14.5); RDW Standard Deviation 41.5 fL (36.4-46.3); Red Blood Count 3.83 M/uL (4.70-6.10)
[2023-03-16 07:56] LABS: Albumin Level 3.7 gm/dl (3.4-5.0); BUN Creatinine Ratio 14.9 (10-20); Calcium 8.8 mg/dl (8.6-10.3); Creatinine Clr Calc Pharmacy 34.6 ml/min; Est GFR (Non-African American) 34.5 ml/min; Magnesium 1.8 mg/dl (1.7-2.4)
[2023-03-16] MEDS: APIXABAN 2.5 MG TAB PO SCH ×2 (09:06→20:14)
[2023-03-16] MEDS: CEROVITE ADV FORMULA TAB PO SCH ×2 (09:07→17:39)
[2023-03-16] MEDS: DOCUSATE SODIUM/SENNA 50/8.6MG TAB PO SCH (09:07)
[2023-03-16] MEDS: ACETAMINOPHEN 500 MG TAB PO SCH ×3 (09:07→20:13)
[2023-03-16] MEDS: FLUTICASONE/VILANTEROL 200/25MCG 14 PUFFS/INHALER INH SCH (09:08)
[2023-03-16] MEDS: LIDOCAINE 5% 1 PATCH TD SCH (09:08)
[2023-03-16] MEDS: FAMOTIDINE 20 MG in SYRINGE 3 ML IV SCH (09:20)
[2023-03-16] MEDS: traMADol HCL 50 MG TABLET PO PRN ×2 (11:33→17:38)
--- NOTE | 2023-03-16 14:15 | Hospitalist Progress Note ---
Date of Service March 16, 2023 Assessment & Plan (1) Multiple closed fractures of ribs of right side: Plan: Mechanical fall Multiple rib fractures on right side involving fourth, fifth and sixth posterior lateral ribs- Causing splinting when breathing, with audible rattling and mucous clearing issues patient will have scheduled acetaminophen schedule tramadol caused nausea vomiting this was discontinued. Continue Lidoderm patch begun in ED start senekot in am 03/15 Pt has history of loop recorder and atrial fibrillation on apixiban, not on rate control (2) Acute kidney injury superimposed on chronic kidney disease: Plan: Acute kidney injury superimposed on CKD-3 seems stable at this time Creatinine 2.22, with base range 1.91-2.47 (3) COPD with emphysema: Plan: COPD with emphysema/acute on chronic respiratory failure with hypoxia- Continue Breo elliptica 1 puff daily DuoNebs every 2 hours as needed Continue incentive spirometry Patient is having significant issues with taking a deep breath due to rib cage pain, and is at risk for secondary pneumonias. Continue incentive spirometry patient has been persistently hypoxic this is likely related to his mechanical injury to his rib cage. Will continue supportive care ordering a two-step for 03/17/2023 (4) Neurogenic bladder: Plan: Neurogenic bladder- Patient straight caths about every 6 hours at home Patient with Wood catheter placed while in hospital for ease of care while having respiratory difficulties has BPH with LUTS Plan PT/OT eval since lives alone PT feels patient may go home with home health likely anticipate day of discharge will be a 03/17/2023 reinforced incentive spirometry to avoid atelectasis Admission and Anticipated Discharge Date Admission Date: March 14, 2023 Subjective patient feels better. He feels his symptoms are more treated to oxycodone and the Ultram and wishes to retry that today. He is disappointed he still is on oxygen therapy and is diligently doing his incentive spirometry still hopeful to go home on 1130 local caregiver Bettie was called and updated she can come on 1130 and take him home. We are still determining whether he needs home oxygen or not.. Physical Exam Physical Exam: Card exam is regular lung exam is clear with exception of Continued splinting from his pain. Abdomen NABS soft and nontender Results & Data Results & Data Vital Signs (Past 12 Hours) Vital Signs Temp Pulse Resp BP Pulse Ox O2 Del Method O2 Flow Rate 03/16/23 12:01 95 Nasal Cannula 2 03/16/23 11:59 85 L Room Air 03/16/23 07:54 97.9 F 76 17 161/76 H 94 Nasal Cannula 2 03/16/23 07:15 Nasal Cannula 2 Laboratory Results reviewed CBC reviewed chemistry. Ordered chest x-ray to evaluate his hypoxia which has been persistent PG Care Time/CCT Total # of Minutes Spent Total Time Spent with Patient: Total time spent is greater than 50% in coordination of care (as documented) at patient's floor/unit and/or counseling patient: Coding Level of Care Code 02675 SUB INP/OBS CARE 235MIN Diagnoses Multiple closed fractures of ribs of right side S22.41XA Acute kidney injury superimposed on chronic kidney disease N17.9; N18.9 COPD with emphysema J43.9 Neurogenic bladder N31.9
--- NOTE | 2023-03-16 16:52 | XRay Report ---
XR chest 2V PA/lateral HISTORY: 82 years-old Male eval for hypoxia attribution acute hypoxia COMPARISON: 03/13/2023 TECHNIQUE: PA and lateral views of the chest FINDINGS: Cardiac silhouette is enlarged. The loop recorder device. Atherosclerosis of the aorta. Chronic blunt ing of the costophrenic angles with unchanged small left pleural effusion. Emphysema with chronic int erstitial coarsening. Left lung volume loss with chronic postoperative changes. Healed chronic right- sided rib fractures. IMPRESSION: 1. Emphysema without acute process. 2. Unchanged small left pleural effusion with bibasilar atelectasis/scarring. ACT 112: Negative or not required by law. The above report was generated using voice recognition software. It may contain grammatical, syntax o r spelling errors. Electronically signed by: Ramón Casey M.D. 03/16/2023 4:51 PM
[2023-03-16] MEDS: ATORVASTATIN 10 MG TAB PO SCH (20:14)
[2023-03-17] MEDS: traMADol HCL 50 MG TABLET PO PRN (01:28)
[2023-03-17] MEDS: LIDOCAINE 5% 1 PATCH TD SCH (08:59)
[2023-03-17] MEDS: FLUTICASONE/VILANTEROL 200/25MCG 14 PUFFS/INHALER INH SCH (09:01)
[2023-03-17] MEDS: CEROVITE ADV FORMULA TAB PO SCH (09:02)
[2023-03-17] MEDS: ACETAMINOPHEN 500 MG TAB PO SCH ×2 (09:02→15:10)
[2023-03-17] MEDS: DOCUSATE SODIUM/SENNA 50/8.6MG TAB PO SCH (09:02)
[2023-03-17] MEDS: FAMOTIDINE 20 MG in SYRINGE 3 ML IV SCH (09:06)
[2023-03-17] MEDS: APIXABAN 2.5 MG TAB PO SCH (09:53)
--- NOTE | 2023-03-17 14:18 | Discharge Summary ---
Date of Service March 17, 2023 Admission HPI Per Admitting Provider The patient is an 82-year-old male with a past medical history including vitamin D deficiency, CKD, elevated PSA, ex-smoker, COPD with emphysema, BPH with LUTS, neurogenic bladder requiring straight cathing approximately every 6 hours, hypertension, lung cancer, and atrial fibrillation on apixaban. The patient presents to the emergency department with right sided chest wall pain after the fall as noted above. Chest x-ray revealed right fourth, fifth and sixth posterior lateral rib fractures. Otherwise, CT scan of the thoracic spine, lumbar spine, cervical spine and head were all normal except for the noted rib fractures Principal Diagnosis closed rib fractures of right side Discharge Exam Card exam is regular lung exam is clear with exception of Continued splinting from his pain. Abdomen NABS soft and nontender Discharge Data Allergies Allergy/AdvReac Type Severity Reaction Status Date / Time simvastatin [From Zocor] Allergy Unknown myalgia Verified 03/13/23 19:24 Consultations 03/13/23 19:43 ED Decision to Admit Stat Ordered Studies 03/13/23 16:40 CT chest diagnostic wo con Stat CT head/brain wo con Stat CT lumbar spine wo con Stat CT neck [CT cervical spine wo con] Stat CT thoracic spine wo con Stat Hospital Course (1) Multiple closed fractures of ribs of right side: Mechanical fall Multiple rib fractures on right side involving fourth, fifth and sixth posterior lateral ribs- Causing splinting when breathing, with audible rattling and mucous clearing issues patient will have scheduled acetaminophen schedule tramadol caused nausea vomiting this was discontinued. Continue Lidoderm patch begun in ED start senekot in am 03/15 WIll discharge on scheduled tylenol with tramadol as needed. Discussed risks. 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 Continue incentive spirometry (4) Neurogenic bladder: Neurogenic bladder- Patient straight caths about every 6 hours at home Patient with Wood catheter placed while in hospital for ease of care while having respiratory difficulties has BPH with LUTS Plan PT/OT eval since lives alone PT feels patient may go home with home health likely anticipate day of discharge will be a 03/17/2023 reinforced incentive spirometry to avoid atelectasis Total Time Total Time Spent Total Time Spent (In Minutes): 32 Discharge Plan Discharge Items Patient Disposition: Home - Home Health Services Reason For Visit: 3 RIGHT SIDE RIB FRACTURES POST GLF Discharge Diagnosis: 3 right sided fractures Activity: Resume your previous activity Non-emergency contact: Primary Care Provider Call non-emergency contact if: you have any medication questions Follow-up/Referrals: Mir Francis, WELFARE VISITOR-C [Primary Care Provider] - (PLEASE CALL YOUR PCP TO HAVE A HOSPITAL FOLLOW UP VISIT 7-10 BUSINESS DAYS. I ATTEMPTED TO CALL SEVERAL TIMES WITH NO ANSWER.) Diet: Full liquid Addtl Attending Provider Instructions: Good afternoon Mr. Gracia, We will recommend you to take tylenol scheduled, 4 times a day. This will provide basic pain relief. You will then have at your disposal tramadol, you can take 1 tablet every 4 hours as needed. You required about 3 doses since this was ordered yesterday. Will recommend you continue to use the incentive spirometer. Please followup with your PCP in 1-2 weeks. Be careful with tramadol as it carries risks of falling, confusion, constipation. This can also cause nausea and vomiting. If you feel nauseous, please have a liquid diet, for example tomato soup. If you are feeling well, with no nausea, you may have a regular diet. Best regards, Royal Orozco MD Pending Studies at Discharge: No Stand-Alone Forms: My Marc[facility], Smoking Cessation Medications and DC Order Prescriptions: New sennosides-docusate sodium [Senokot-S] 8.6-50 mg Tablet 1 tab PO QAM PRN (Reason: constipation/when taking tramadol) Qty: 15 0RF tramadol 50 mg Tablet 50 mg PO Q4H PRN (Reason: moderate or severe pain) Qty: 15 0RF lidocaine 5 % Adhesive Patch,Medicated 1 patch transdermal DAILY Qty: 30 0RF acetaminophen [Aphen] 325 mg tablet 325 mg PO Q6H 14 Days Qty: 60 0RF Continued Dulera 100-5 mcg/actuation HFA aerosol inhaler 2 puff inhalation BID Qty: 3 3RF Eliquis 2.5 mg tablet 2.5 mg PO BID albuterol sulfate 90 mcg/actuation HFA aerosol inhaler 2 puff inhalation Q6H PRN (Reason: Shortness Of Breath Or Wheezing) Qty: 18 3RF atorvastatin 20 mg tablet 10 mg PO HS famotidine 20 mg tablet 20 mg PO QAM PreserVision AREDS 2,148 mcg-113 mg-45 mg-17.4mg Tablet 2 tab PO BID Rx Instructions: administer with AM and PM meals Discharge Orders: Discharge Order (Routine); Ordered 03/17/23 Ordered By: Royal Orozco Admission Data Admit Date/Time: 03/13/23 20:52 Attending Provider: Royal Orozco Admit Provider: Art Shearer Primary Care Provider: Mir Francis Other Providers: Art Shearer; [facility] Other Interventions: Discharge Summary Assessment (RN) Last Done: 03/17/23 14:41 Coding Level of Care Code 01646 INP/OBS DISCH >30 MIN Diagnoses Multiple closed fractures of ribs of right side S22.41XA Acute kidney injury superimposed on chronic kidney disease N17.9; N18.9 COPD with emphysema J43.9 Neurogenic bladder N31.9
== END 2023-03-17 15:38 | disposition home or self-care (01) | DRG 183 ==
LOC: ED 16:32 → 3W 16:32 → SUATTDRO 20:52 → 3W 22:13 → SUATTDRO 03-14 18:01

== ENCOUNTER 2023-07-05 12:41 | Observation (INO) ==
--- NOTE | 2023-07-05 13:12 | History & Physical Bridge Note ---
Date of Service July 05, 2023 History & Physical Bridge Note I have examined the patient, reviewed the History & Physical and in the interval since the performance of the History & Physical I have noted the following changes of clinical significance: no changes noted. I reviewed the indications, procedure, risks and alternatives with the patient, and answered all questions. Patient understands and agrees to the procedure. Consent obtained. I also reviewed the risks and use of sedation, patient understands and consent obtained.
--- NOTE | 2023-07-05 13:39 | Pre Anesthesia Assessment ---
Date of Service July 05, 2023 Pre Sedation Assessment Vital Signs Temp Pulse Resp BP Pulse Ox O2 Del Method 07/05/23 13:09 36.4 C L 100 H 18 162/95 H 94 Room Air Cardiovascular RRR, no murmur, no edema Respiratory normal respiratory effort, lungs clear to auscultation Pre-Sedation Airway Assessment Smoking Status: Former smoker Short, Thick Neck: No Thyromental Distance: > or= 3.5 Finger Breadths Oral Cavity: + WNL Mallampati Class: III ASA: ASA3 NPO Status Date of Last Intake of Fluids: 07/04/23 Date of Last Intake of Solid Food: 07/04/23 Procedure Planning Contraindications for Sedation: none Current Medications Reviewed: Yes Notes The planned sedation has been discussed with the patient. Informed Consent was obtained. I have identified the patient, determined the appropriateness of sedation and have assessed the patient immediately prior to the procedure. All medicine(s) and interventions are by my order.
[2023-07-05] MEDS: VANCOMYCIN HCL 1000MG/20ML VIAL ONE (14:35)
[2023-07-05] MEDS: LIDOCAINE 1% LOCAL 20 ML VIAL ONE (14:35)
[2023-07-05] MEDS: WATER, STERILE FOR INJ 10 ML VIAL ONE (14:36)
[2023-07-05] MEDS: ceFAZolin 330 MG/ML 1 GM VIAL ONE (14:36)
[2023-07-05] MEDS: fentaNYL citrate PF 100 MCG/2 ML VIAL ONE (14:59)
[2023-07-05] MEDS: MIDAZOLAM HCL 5 MG/ML 1 ML VIAL ONE (14:59)
--- NOTE | 2023-07-05 15:24 | Electrophysiology Report ---
Date of Service July 05, 2023 Electrophysiology Procedure Electrophysiology Procedure Report Preoperative diagnosis: Tachy-jourdan syndrome, intermittent CHB Postoperative diagnosis: Same Procedure: Left subclavian venogram Dual-chamber left bundle branch pacemaker implantation Loop recorder explant Surgeon: Oz Pearl MD Estimated blood loss: 20 cc Complications: None Disposition: [facility] recovery Procedure details: After obtaining informed consent for the procedure, the patient was brought to the laboratory and prepped and draped in the standard sterile manner. Dye was injected the left arm IV site to opacify the left subclavian vein. The subclavian vein was identified and found to be free of obstruction. The left prepectoral region was anesthetized with 1% lidocaine local anesthetic and left axillary venipuncture was performed by percutaneous technique and a guidewire placed through the left subclavian vein into the superior vena cava. The area was further infiltrated with 1% lidocaine local anesthetic and a 5 cm incision was made parallel to the left clavicle and 2 cm below it and carried down to the anterior pectoralis fascia. A pacemaker pocket was formed by blunt dissection anterior to the pectoralis fascia and a vancomyci n-soaked sponge was placed in the pocket. An 8.5 Nepali Medtronic lead introducer was placed over the guidewire into the left subclavian vein, the dilator and guidewire were removed and a bipolar act babar fixation steroid tipped atrial lead was advanced through the introducer into the superior vena cava. A guidewire was placed through the introducer and the introducer was stripped from the lead and guidewire. A 7 Nepali Medtronic lead introducer was placed over the guidewire into the left subclavian vein, the dilator and guidewire were removed. A C315 His 02 septal sheath was advanced through the introducer over a guidewire and advanced into the right ventricular outflow tract. The guidewire and dilator were removed and the sheath was positioned in a mid septal location. A bipolar active fixation steroid tipped ventricular lead was advanced through the introducer and rotated to advance the screw into the septum. Septal penetration was confirmed by electrogram morphology. Pacing and sensing thresholds were evaluated in bipolar configuration and are noted on the data sheet. The septal sheath was stripped away from the lead. A guidewire was placed back through the introducer and the introducer was removed over the the guidewire. The atrial lead was then removed from the right ventricle. Using a curved stylette the atrial lead was positioned in the region of the atrial appendage and the screw extended fixing the lead in position. Pacing and sensing thresholds were evaluated in bipolar configuration and are recorded on the implant data sheet. Once the leads were in position they were attached to the anterior pectoralis fascia using 2 sutures of 2-0 silk around each lead collar. The vancomycin soaked sponge was removed from the pocket, hemostasis was obtained, the pacemaker was attached to the leads and placed in the pocket with the leads coiled beneath it. The incision was closed with a running double subcutaneous closure of 3-0 Vicryl absorbable suture, followed by running subcuticular skin closure of 4-0 Vicryl absorbable suture. Bacitracin ointment was placed on the incision and a dressing applied. [facility] [place]rophysiology codes Indication for Procedure (1) Tachy-jourdan syndrome: Pacing Procedure 1: Pacin Insert/Replace Pacer A & V Implantable Monitors Procedure 1: Implantable Monitors: 26068 Loop Recorder Explant Miscellaneous Procedures Procedure 1: EP Miscellaneous: 25927 Contrast injection for venography Procedure 2: EP Miscellaneous: 41168-50 Vengraphy, extremity PG Moderate Sedation Codes Moderate Sedation Codes Procedure 1: Sedation/Anesthesia: 39249 Mod Sedation by the same physician;Init15 Min Child Age 5 & Up Procedure 2: Sedation/Anesthesia: 77225 Mod Sedation by the same physician; Ea [id number] Minutes
[2023-07-05] MEDS ORDERED: KETOROLAC TROMETHAMINE 10 MG TABLET PO PRN (15:25)
[2023-07-05] MEDS ORDERED: ACETAMINOPHEN 325 MG TAB PO PRN (15:25)
[2023-07-05] MEDS ORDERED: ALBUTEROL HFA 8 GM INHALER INH PRN (15:28)
--- NOTE | 2023-07-05 15:30 | Post Anesthesia Assessment ---
Date of Service July 05, 2023 Post Sedation Assessment Vital Signs Temp Pulse Resp BP Pulse Ox O2 Del Method 07/05/23 15:15 92 H 18 168/100 H 93 Room Air 07/05/23 13:09 36.4 C L 100 H 18 162/95 H 94 Room Air Recovery Score Activity: Moves 4 extremities Respiration: Deep Breath/Cough Circulation: +/-20% PreAnes Value Consciousness: Fully Awake Oxygen Saturation: > 92% On Room Air Post Anesthesia Score: 10 Discharge Sedation Level of Care: Fast Track Phase II Post Sedation Plan On clinical assessment, the patient appears to have tolerated the sedation without complications. Patient is recovering as anticipated. Patient will continue to be monitored by nursing and may be discharged when sedation discharge criteria are met per below protocol. Upon Completions of procedure up to 15 minutes continue every 5 minute vital signs and the P.A.R. score; then discharge to a Phase I or Fast Track to Phase II per the following guidelines: * Discharge Patient to appropriate Phase II area if PAR is 8 or greater or return to pre- procedure baseline. The post - procedure orders will be as directed. * If PAR score is less than 8 or not return to pre-procedure baseline then pat ient will follow Phase I monitoring till PAR is reached for Phase II. The Phase I may be done in procedure room or may call to secure a Phase I area. * If naloxone or flumazenil are used for reversal, hold in Phase I for continued monitoring from when last reversal dose was given for a minimum of 60 minutes or longer pending the nurse and/or physician discretion of patient condition before discharge to Phase II. Please call the Sedation Physician to re-evaluate and complete post-note for discharge to Phase II area. Do NOT discharge from procedure sedation or Phase 1 until post- sedation evaluation note is complete by procedure /sedation MD Sedation Discharge Instructions to be given to the patient at discharge to home.
[2023-07-05] MEDS ORDERED: ACETAMINOPHEN W/CODEINE #3 1 TAB PO PRN (16:33)
[2023-07-05] MEDS: METOPROLOL TARTRATE 50 MG TAB PO SCH (16:58)
[2023-07-05] MEDS: FLECAINIDE ACETATE 100 MG TABLET PO SCH (16:59)
--- NOTE | 2023-07-05 17:17 | Electrocardiogram Report ---
Test Reason : Blood Pressure : / mmHG Vent. Rate : 083 BPM Atrial Rate : 083 BPM P-R Int : 126 ms QRS Dur : 104 ms QT Int : 386 ms P-R-T Axes : 065 056 040 degrees QTc Int : 453 ms Atrial-sensed ventricular-paced rhythm Abnormal ECG When compared with ECG of 30-MAY-2023 12:46, (unconfirmed) Electronic ventricular pacemaker has replaced Sinus rhythm Confirmed by Howard Laws ([id number]) on 07/05/2023 5:17:27 PM Referred By: Oz Pearl Confirmed By:Serge Laws
[2023-07-05] MEDS: CEROVITE ADV FORMULA TAB PO SCH (20:21)
[2023-07-05] MEDS: ATORVASTATIN 10 MG TAB PO SCH (20:22)
--- NOTE | 2023-07-06 07:05 | XRay Report ---
XR chest 2V PA/lateral HISTORY: Pacemaker placement. Follow-up. EXACT TIME ORDERED Evaluate for pneumothorax and l COMPARISON: Chest 03/24/2023. FINDINGS: Interval placement left-sided dual-chamber pacemaker. The leads appear intact. No pneumotho rax. Volume loss within the left hemithorax with left pleural thickening and left basilar scarring pe rsists. This is consistent with postoperative change related to a prior left lower lobectomy. Trace l eft pleural effusion again noted. Emphysema. The right lung is clear. There are old, healed bilateral rib fractures. Calcifications within the aortic knob. The heart remains normal in size. No evidence for pulmonary edema. IMPRESSION: Interval placement of a left-sided dual-chamber pacemaker. No pneumothorax. ACT 112: Negative or not required by law. Electronically signed by: Romeo Cooley M.D. 07/06/2023 7:04 AM
[2023-07-06] MEDS: FLUTICASONE/VILANTEROL 100/25MCG 14 PUFFS/INHALER INH SCH (08:51)
[2023-07-06] MEDS: CALCITRIOL 0.25 MCG CAPSULE PO SCH (08:51)
--- NOTE | 2023-07-06 09:08 | Cardiology Progress Note ---
Date of Service July 06, 2023 Assessment & Plan (1) Status post placement of cardiac pacemaker: (2) Tachy-jourdan syndrome: (3) Hypertension: Plan Post pacemaker implantation: He is doing well postop day #1, the device is working well, the chest x-ray looks good and the site looks good. He is stable for discharge. He can start Eliquis this evening. Tachybradycardia syndrome: Metoprolol added to his regimen to try to control his tachycardia. The pacemaker will ensure he does not have bradycardia. Hypertension: His blood pressure is much better controlled now on metoprolol. I will send in a prescription for metoprolol succinate 100 mg daily. Admission and Anticipated Discharge Date Admission Date: July 05, 2023 Subjective He is feeling well today, he has minimal incisional discomfort, no chest pain or shortness of breath. Physical Exam Physical Exam: The pacemaker insertion site and the loop recorder explant site looks clean and dry, no drainage or swelling. Cardiac rhythm is regular with no rub Lungs are clear Results & Data Vital Signs (Past 12 Hours) Vital Signs Temp Pulse Pulse Resp BP Pulse Ox O2 Del Method 07/06/23 07:48 36.8 C 59 L 18 137/73 95 Nasal Cannula 07/06/23 05:31 60 138/68 07/06/23 03:00 37.1 C 59 L 18 144/75 H 91 Nasal Cannula 07/05/23 23:00 36.6 C 58 L 18 131/73 92 Nasal Cannula 07/05/23 21:55 60 O2 Flow Rate 07/06/23 07:48 1 07/06/23 05:31 07/06/23 03:00 07/05/23 23:00 07/05/23 21:55 Laboratory Results Intake and Output 07/05/23 07/06/23 07/06/23 22:59 06:59 14:59 Intake Total 120 / 120 Output Total 400 / 400 Balance -280 / -280 Intake: Oral 120 / 120 Output: Urine Amount (Catheter) 400 / 400 Straight 400 / 400 Other: # Unmeasured Voids 1 Diagnostic Findings Postop ECG: Normal pacemaker function Telemetry: Normal pacemaker function, no significant arrhythmia Chest x-ray: Good lead position, no pneumothorax Pacemaker evaluation: Excellent pacing and sensing characteristics PG Care Time/CCT Total # of Minutes Spent Total Time Spent with Patient: Total time spent is greater than 50% in coordination of care (as documented) at patient's floor/unit and/or counseling patient: Coding Level of Care Code 37899 Post Operative Follow-Up Diagnoses Status post placement of cardiac pacemaker Z95.0 Tachy-jourdan syndrome I49.5 Primary hypertension I10 Hypertension type: primary hypertension CPT Codes Dual Lead Pacemaker System - 13871 ([id number]) (3) Hypertension Hypertension type: primary hypertension Qualified Code(s): I10 - Essential (primary) hypertension
--- NOTE | 2023-07-06 10:38 | Discharge Summary ---
Date of Service July 06, 2023 Admission HPI Per Admitting Provider This is an 82-year-old male with with a recent diagnosis of lung cancer for which he has had surgery and chemotherapy as well as stage III chronic kidney disease and hypertension. I have some records however he has been to [facility] and the [place] system so I do not think I have complete records. Records from [facility] notes COPD, GERD, and abdominal aortic aneurysm. He has what I believe is paroxysmal atrial fibrillation which was treated with diltiazem for rate control and Eliquis. It appears that his diagnosis was first made around 2018 when he had his lung surgery, he tells me he really was not aware of it at the time but subsequently does describe occasional episodes of palpitations and possibly lightheadedness and orthostasis at those times. I am not sure of his burden, he tells me that when he takes his blood pressure (which he does usually several times per day) that about a third of the time or so it will tell him that his heart rate is irregular. He does not recall the heart rate specifically but thinks it was probably around 82 and does not recall it being fast. To evaluate his palpitations, lightheadedness and history of atrial fibrillation and external monitor was scheduled. A 28-day MCOT monitor was worn from November 05, 2021 through December 04, 2021. The rate ranged from 25 bpm to 140 bpm with an average of 74 bpm. The rhythm was sinus throughout with no atrial fibrillation. There were 983 PVCs (less than 1%) and 3084 premature atrial beats (less than 1%). There were 6 pauses in excess of 2 seconds, the longest being 3.3 seconds. These were not necessarily at night. 43 patient activated rhythm strips were available, symptoms included lightheadedness, shortness of breath, dizziness, heart racing and "took medication". At these times the rhythm was similar to his general rhythm, it is not clear that his symptoms were related to the rhythm. An echocardiogram done on December 08, 2021 was a suboptimal study but the left ventricular function was normal and there were no significant valvular abnormalities. With uncertainty as to his atrial fibrillation burden as well as the significance of his pauses we did implant a loop recorder on December 29, 2021. We did continue Eliquis. He had lightheadedness and minimal atrial fibrillation therefore his diltiazem was reduced to 120 mg daily. He continued to have episodes of lightheadedness on occasion, and he noted his blood pressure was as low as 90/54 with symptoms of lightheadedness. The diltiazem was therefore discontinued. He noted however that his heart rate was rapid following discontinuation of the diltiazem and he continued to have pauses approaching 5 seconds in duration. He did have brief periods of complete heart block. These are often at night but he does occasionally have episodes of lightheadedness but these may not correlate with rhythm disturbances. With classic findings of tacky bradycardia syndrome although correlation with symptoms was difficult I did recommend a pacemaker to make management easier and to protect him from progressive bradycardia. He wanted to think about it and he now comes in for follow-up. He continues to feel about the same, his symptoms are nonspecific and I cannot tell if he is having symptomatic bradycardia or whether he is having symptomatic episodes of atrial fibrillation. He is doing well on Eliquis, it is now at a reduced dose due to him becoming 82 years old and his creatinine being greater than 1.5. He is concerned about having macular degeneration which he tells me is a bleeding risk, but so far is not having difficulty on the Eliquis. He has had no presyncope or syncope. Admission Exam (Per Admitting) Constitutional Constitutional: Alert, cooperative and in no distress. HEENT: Unremarkable Neck: No jugular venous distention, carotid pulses are normal and equal bilaterally without bruits. Pulmonary: Clear to auscultation bilaterally. Cardiac: Regular rhythm with no murmur, gallop or rub. Abdomen: Soft, nontender with normal bowel sounds. Extremities: No edema. Distal pulses intact. Neurologic: No focal findings. Gait is steady. Skin: The device site is well-healed without erythema, swelling or tenderness. No rash, ecchymoses or petechiae. Discharge Data Procedures Performed Operation Date: 07/05/23 14:00 Actual Procedures s Venogram, Unilateral - Oz Pearl MD s Bundle of his Recording - Oz Pearl MD p Pacer with A/V Leads (Dual) - Oz Pearl MD Hospital Course (1) Status post placement of cardiac pacemaker: (2) Tachy-jourdan syndrome: (3) Hypertension: Plan 1. Pacemaker implantation: A dual-chamber pacemaker was implanted without difficulty on July 05, 2023, a left bundle [employer] leader was used with good electrocardiographic results. The procedure was uncomplicated and he remained overnight. This morning the site looks good, chest x-ray and device measurements are excellent. He is stable for discharge. 2. Tachybradycardia syndrome: He has had no tachycardia during hospitalization, beta-blockers were added to prevent future tachycardia. 3. Hypertension: His blood pressure has been quite elevated but we were limited on antihypertensives due to transient AV block. Now with a pacemaker in place I have added metoprolol and I have sent that into his pharmacy. Discharge Instructions He should restart Eliquis on the evening of July 06, 2023. Coding Level of Care Code None Diagnoses Status post placement of cardiac pacemaker Z95.0 Tachy-jourdan syndrome I49.5 Primary hypertension I10 Hypertension type: primary hypertension
== END 2023-07-06 11:33 | disposition home or self-care (01) | DRG 244 ==
LOC: EP 12:41 → 2S 13:58 → INTOOBSV 13:58

== ENCOUNTER 2024-01-04 17:44 | Inpatient (IN) ==
--- NOTE | 2024-01-04 18:00 | ED Triage Note ---
Date of Service January 04, 2024 Provider in Triage Author: Oskar Maciel History of Present Illness This patient was briefly evaluated while in triage. An abbreviated physical exam was performed. This patient is a 83-year-old Male, history of Stage 3b chronic kidney disease, hypertension, COPD (chronic obstructive pulmonary disease) and secondary hyperparathyroidism, who presents to the ED for evaluation of fevers and elevated heart rate in the 120s to 140s. Patient has also been dizzy lately, and feels short of breath. He denies any chest pain. Patient is usually on oxygen via 2 L/min at nighttime. He has had to wear throughout the day with his current shortness of breath. Patient reports that he was just started on Jardiance, and is concerned that he is having a reaction to it. He is also concerned that he has a UTI. Physical Exam CONSTITUTIONAL: Healthy and well nourished. Patient does not appear in any acute distress. HEENT: Normocephalic, atraumatic. Pupils equal, round and reactive. NECK: Full active range of motion without discomfort. LYMPHATICS: No cervical chain adenopathy. RESPIRATORY: Lung sounds are distant without wheezing, crackles, rhonchi or stridor. CARDIOVASCULAR: Regular and mildly tachycardic rhythm with no murmurs, rubs or gallops. INTEGUMENTARY: No rash or other significant dermatologic conditions noted. HEMATOLOGIC: No ecchymosis or petechiae. PSYCHIATRIC: Positive affect. NEUROLOGIC: No focal neurologic deficits noted. Initial orders for labs and / or imaging were placed and patient was placed in the waiting area until a bed is available. Please see further documentation for the full ED course.
[2024-01-04 19:03] LABS: Basophils # (auto) 0.04 K/uL (0.00-0.20); Basophils % (auto) 0.4 %; Eosinophils # (auto) 0.13 K/uL (0.00-0.50); Eosinophils % (auto) 1.3 %; Hematocrit (blood only) 44.1 % (42.0-52.0); Hemoglobin 14.5 g/dl (14.0-18.0); Immature Granulocytes # (auto) 0.04 K/uL (0.01-0.20); Immature Granulocytes % (auto) 0.4 %; Lymphocytes # (auto) 1.78 K/uL (1.20-3.40); Mean Corpuscular Hemoglobin 30.5 pg (25.0-34.0); Mean Corpuscular Hgb Conc 32.9 g/dL (32.0-36.0); Mean Corpuscular Volume 92.8 fL (80.0-100.0); Mean Platelet Volume 9.6 fL (9.4-12.4); Monocytes # (auto) 1.11 K/uL (0.11-0.59); Monocytes % (auto) 11.2 %; Neutrophils # (auto) 6.81 K/uL (1.40-6.50); Neutrophils % (auto) 68.7 %; Platelet Count 153 K/uL (130-400); RDW Coefficient of Variation 12.9 % (11.5-14.5); RDW Standard Deviation 43.5 fL (36.4-46.3); Red Blood Count 4.75 M/uL (4.70-6.10); White Blood Count 9.91 K/ul (4.8-10.8)
[2024-01-04 19:16] LABS: Albumin Globulin Ratio 1.5 (0.9-2); Albumin Level 4.4 gm/dl (3.4-5.0); BUN Creatinine Ratio 11.1 (10-20); Bilirubin,Total 1.1 mg/dl (0.2-1.0); Calcium 9.8 mg/dl (8.6-10.3); Creatinine Clr Calc Pharmacy 20.1 ml/min; Est GFR (African American) 20.4 ml/min; Est GFR (Non-African American) 17.6 ml/min; Potassium 4.5 mmol/L (3.5-5.1); Total Protein 7.4 gm/dl (6.0-8.3)
[2024-01-04 19:23] LABS: Troponin I High Sensitivity 8.7 pg/ml (0-20)
[2024-01-04 19:26] LABS: INR 1.1 (0.9-1.1); Prothrombin Time 11.6 Seconds (9.0-12.0)
[2024-01-04 19:42] LABS: Adenovirus PCR Not Detected (NotDetected); Bordetella parapertussis PCR Not Detected (NotDetected); Bordetella pertussis PCR Not Detected (NotDetected); Chlamydia pneumoniae PCR Not Detected (NotDetected); Coronavirus 229E PCR Not Detected (NotDetected); Coronavirus CoV-2 (COVID19)PCR Not Detected (NotDetected); Coronavirus HKU1 PCR Not Detected (NotDetected); Coronavirus NL63 PCR Not Detected (NotDetected); Coronavirus OC43PCR Not Detected (NotDetected); Human Metapneumovirus PCR Not Detected (NotDetected); Influenza A PCR Not Detected (NotDetected); Influenza B PCR Not Detected (NotDetected); Mycoplasma pneumoniae PCR Not Detected (NotDetected); Parainfluenza Virus 1 PCR Not Detected (NotDetected); Parainfluenza Virus 2 PCR Not Detected (NotDetected); Parainfluenza Virus 3 PCR Not Detected (NotDetected); Parainfluenza Virus 4 PCR Not Detected (NotDetected); Respiratory Syncytial VirusPCR Not Detected (NotDetected); Rhinovirus/Enterovirus PCR Not Detected (NotDetected)
[2024-01-04] MEDS: SODIUM CHLORIDE 0.9% 1,000 ML IV SCH (20:21)
[2024-01-04 20:52] LABS: Appearance Urine Clear (Clear); Bacteria Urine Automated None Seen (None Seen); Bilirubin Urine Negative (Negative); Blood Urine Negative (Negative); Color Urine Yellow; Epithelial Cell Urine Auto 0-2 /hpf (0-2); Glucose Urine UA 3+ (Negative); Hyaline Casts Urine Present /lpf (None Presnt); Ketones Urine Trace (Negative); Leukocyte Esterase Urine Trace (Negative); Nitrite Urine Negative (Negative); Protein Urine Trace (Negative); RBC Urine Automated 0-2 /hpf (0-2); Specific Gravity Urine 1.023 (1.000-1.030); Urobilinogen Urine Negative (Negative); WBC Urine Automated 0-5 /hpf (0-5); pH Urine 5.5 (4.5-7.5)
--- NOTE | 2024-01-04 21:14 | Emergency Department Note ---
History of Present Illness General Chief complaint: Infection Stated complaint: IFECTION FROM MEDICINE Time Seen by Provider: 01/04/24 19:54 History of Present Illness Provider complaint: Illness Onset (ago): day(s) 2 83-year-old male presents emergency department for illness. Patient reports that since Tuesday he has been having fevers palpitations dizziness and shortness of breath. He states he feels very weak. Denies any chest pain abdominal pain nausea vomiting diarrhea hematuria. He does report dysuria. Patient states he thinks his symptoms are secondary to Jardiance. Patient is on Eliquis. He denies any falls or traumas. Home Medications Medication Instructions Recorded Confirmed Type atorvastatin 20 mg tablet 10 mg PO HS 11/05/21 12/06/23 History vitamins A,C,B-evoj-ynjlkw 2,148 2 tab PO BID 02/16/23 12/06/23 History mcg-113 mg-45 mg-17.4 mg tablet (PreserVision AREDS) calcitriol 0.25 mcg capsule 0.25 mcg PO UD #45 caps 04/26/23 12/06/23 Rx albuterol sulfate 90 mcg/actuation 2 puff inhalation Q6H PRN 05/03/23 12/06/23 Rx aerosol inhaler Shortness Of Breath Or Wheezing #18 grams mometasone-formoterol HFA 100 2 puff inhalation BID #3 Inhalers 05/03/23 12/06/23 Rx mcg-5 mcg/actuation aerosol inhaler (Dulera) apixaban 5 mg tablet (Eliquis) 2.5 mg PO BID 05/30/23 12/06/23 History metoprolol succinate 100 mg 100 mg PO DAILY #90 tabs 08/24/23 12/06/23 Rx tablet,extended release 24 hr Oxygen Home #1 ea 10/03/23 12/06/23 Rx pantoprazole 40 mg tablet,delayed 40 mg PO BID #180 tabs 11/07/23 12/06/23 Rx release lisinopril 5 mg tablet 5 mg PO DAILY #90 tabs 12/12/23 Rx empagliflozin 25 mg tablet 12.5 mg (1/2 x 25 mg) PO DAILY #90 12/28/23 Rx tabs Allergies Allergy/AdvReac Type Severity Reaction Status Date / Time simvastatin [From Zocor] Allergy Unknown myalgia Verified 12/05/23 12:17 Past Med/Surg History Problem List (Updated 01/04/24 @ 23:14 by Josef Castañeda MD) Esophageal dysphagia 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, 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 Chronic respiratory failure with hypoxia Nocturnal hypoxia Secondary hyperparathyroidism COVID-19 (Acute) Acute kidney injury superimposed on chronic kidney disease Multiple closed fractures of ribs of right side (Acute) Fall from standing (Acute) Colon cancer screening Lightheadedness History of hematuria Anemia due to chronic kidney disease Vitamin D deficiency resolved Acute kidney injury (Acute) Stage 3b chronic kidney disease History of loop recorder Sinus pause Elevated prostate specific antigen (PSA) Bladder neck contracture Hypersomnia Ex-smoker Exertional shortness of breath COPD with emphysema BPH NOS w ur obs/LUTS Neurogenic bladder Anticoagulant long-term use Acute kidney injury (Acute) Atrial fibrillation hx- pacemaker placed 07/05/23 currently on eliquis; marni parker COPD (chronic obstructive pulmonary disease) (Chronic) daily and prn inh Hypertension (Chronic) hx Medical History Hx of tachycardia-bradycardia syndrome Secondary hyperparathyroidism HTN (hypertension) Hx of cancer of lung dx 2018, sx and chemo COPD (chronic obstructive pulmonary disease) daily and prn inh Atrial fibrillation hx- pacemaker placed 07/05/23 currently on eliquis; marni parker Anticoagulant long-term use Stage 3 chronic kidney disease follows w/ Dr Young Anemia due to chronic kidney disease receiving iron infusions 09/2023 Nocturnal hypoxia Chronic respiratory failure Esophageal dysphagia improved 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, 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 jimenez Hx of hernia repair as a baby Hx of colonoscopy Hx of bilateral cataract extraction History of lobectomy of lung 2019, lt lower lobe due to cancer, also received chemo Hx of transurethral resection of prostate Family History Mother Lung cancer Diabetes Father Lung cancer Social History Smoking Status: Former smoker Tobacco Type: Cigarettes Age Started Using Tobacco: 20; Age Quit Using Tobacco: 67; packs per day: 2; Cigarettes Per Day: 2 packs a day.; Second Hand Exposure: No; Do You Dip or Chew Tobacco: No; Hx Alcohol Use: No Hx Substance Use: No Preferred Language: Somali Communication Ability: Effective Ict Support Technicians Required: No Beliefs That Will Affect Care: None marital status: Single Current Living Situation: Alone current occupational status: retired Feels Safe at Home: Yes Assistive Devices: Denture - Upper, Denture - Lower, Glasses and Oxygen - at Night Physical Exam Vital Signs Vital Signs - 24 hr 01/04/24 17:57 01/04/24 19:33 01/04/24 19:34 Temperature 36.6 C Temperature Source Temporal Artery Scan Pulse Rate 112 H Pulse Rate [Apical] 91 H Pulse Rate from SpO2 Sensor Pulse Rhythm [Apical] Regular Pulse Strength [Apical] Normal Respiratory Rate 24 18 Respiratory Effort / Characteristics Non-Labored Non-Labored Spontaneous Respiratory Depth Normal Normal Respiratory Pattern Regular Blood Pressure 100/64 129/76 Blood Pressure [Right Arm] 129/76 Blood Pressure Mean 76 100 Blood Pressure Mean [Right Arm] 93 Blood Pressure Position [Right Arm] Lying Pulse Oximetry 93 96 Oxygen Delivery Method Nasal Cannula Nasal Cannula Oxygen Flow Rate 2 3 Sepsis Recent Fever Within 48 Hours No Sepsis New/Unexplained Change in Mental Status No Sepsis Action Taken by Nursing Physician Notified 01/04/24 19:36 01/04/24 19:36 01/04/24 20:03 Temperature Temperature Source Pulse Rate 78 78 96 H Pulse Rate [Apical] Pulse Rate from SpO2 Sensor 79 98 H Pulse Rhythm [Apical] Pulse Strength [Apical] Respiratory Rate 22 20 Respiratory Effort / Characteristics Respiratory Depth Respiratory Pattern Blood Pressure Blood Pressure [Right Arm] Blood Pressure Mean Blood Pressure Mean [Right Arm] Blood Pressure Position [Right Arm] Pulse Oximetry 98 97 Oxygen Delivery Method Oxygen Flow Rate Sepsis Recent Fever Within 48 Hours Sepsis New/Unexplained Change in Mental Status Sepsis Action Taken by Nursing 01/04/24 20:36 01/04/24 21:00 01/04/24 21:51 Temperature 36.7 C Temperature Source Oral Pulse Rate 82 79 Pulse Rate [Apical] 82 Pulse Rate from SpO2 Sensor 81 79 Pulse Rhythm [Apical] Regular Pulse Strength [Apical] Normal Respiratory Rate 22 22 20 Respiratory Effort / Characteristics Non-Labored Respiratory Depth Normal Respiratory Pattern Regular Blood Pressure Blood Pressure [Right Arm] 123/68 Blood Pressure Mean Blood Pressure Mean [Right Arm] 86 Blood Pressure Position [Right Arm] Lying Pulse Oximetry 97 96 96 Oxygen Delivery Method Nasal Cannula Oxygen Flow Rate 3 Sepsis Recent Fever Within 48 Hours Sepsis New/Unexplained Change in Mental Status Sepsis Action Taken by Nursing Physical Exam GENERAL: oriented to person, place, and time. appears well-developed and well- nourished. HENT: Exam performed. - Head: Normocephalic and atraumatic. EYES: Conjunctivae and EOM are normal. Right eye exhibits no discharge. Left eye exhibits no discharge. No scleral icterus. NECK: Normal range of motion. Neck supple. No JVD present. CV: Normal rate, regular rhythm, normal heart sounds and intact distal pulses. There is no peripheral edema. Palpable radial pulses bue. PULM/CHEST: Diminished breath sounds over the left. ABD: The abdomen is soft. There is no tenderness. NEURO: Motor and sensation grossly intact. SKIN: Skin is warm and dry. He is not diaphoretic. PSYCH: normal mood and affect. Behavior is normal. Judgment and thought content normal. Course Course 1953: The patient was evaluated in room A10. A complete history and physical exam was performed Cardiac monitoring: An order was placed for continuous cardiac monitoring. The monitor shows a rate of 90 with sinus rhythm interpreted by me 2312: Vital signs stable. Labs are unremarkable with the exception of aCreatinine of 3.14. Baseline is around 2. Imaging shows no obstructive lesions. Patient has a history of AAA and AAA is redemonstrated on imaging today. Patient reporting no abdominal pain. Discussed case with [facility] hospitalist Dr. Serra who will admit the patient. He recommends treating the patient's antibiotics as the thought that the offending agent for the VIDYA is Jardiance and increase incidence of UTIs with Jardiance. Rocephin ordered for the patient. Administered Medications Sodium Chloride (Nss) 1,000 mls @ 80 mls/hr IV .[id number] FANNY Stop: 02/03/24 19:59 Last Admin: 01/04/24 20:21 Dose: 80 mls/hr Documented By: NICK Medical Decision Making Laboratory Data Attestation: I reviewed the patient's lab results. 01/04/24 18:22 01/04/24 18:22 Lab Results 01/04/24 01/04/24 Range/Units 18:22 20:02 WBC 9.91 (4.8-10.8) K/ul RBC 4.75 (4.70-6.10) M/uL Hgb 14.5 (14.0-18.0) g/dl Hct 44.1 (42.0-52.0) % MCV 92.8 (80.0-100.0) fL MCH 30.5 (25.0-34.0) pg MCHC 32.9 (32.0-36.0) g/dL RDW Std Deviation 43.5 (36.4-46.3) fL RDW Coeff of Jacque 12.9 (11.5-14.5) % Plt Count 153 (130-400) K/uL MPV 9.6 (9.4-12.4) fL Immature Gran % (Auto) 0.4 % Neut % (Auto) 68.7 % Lymph % (Auto) 18.0 % [place] % (Auto) 11.2 % Eos % (Auto) 1.3 % Baso % (Auto) 0.4 % Neut # (Auto) 6.81 H (1.40-6.50) K/uL Lymph # (Auto) 1.78 (1.20-3.40) K/uL [place] # (Auto) 1.11 H (0.11-0.59) K/uL Eos # (Auto) 0.13 (0.00-0.50) K/uL Baso # (Auto) 0.04 (0.00-0.20) K/uL Immature Gran # (Auto) 0.04 (0.01-0.20) K/uL ESR 60 H (0-20) mm/hr PT 11.6 (9.0-12.0) Seconds INR 1.1 (0.9-1.1) Sodium 138 (136-145) mmol/L Potassium 4.5 (3.5-5.1) mmol/L Chloride 104 (98-107) mmol/L Carbon Dioxide 24 (21-32) mmol/L Anion Gap 10 (3-11) BUN 35 H (6-23) mg/dl Creatinine 3.14 H (0.6-1.4) mg/dl Est Cr Clr Drug Dosing 20.1 ml/min Est GFR ( Amer) 20.4 ml/min Est GFR (Non-Af Amer) 17.6 ml/min BUN/Creatinine Ratio 11.1 (10-20) Glucose 130 H (70-99(Fasting)) mg/dl Calcium 9.8 (8.6-10.3) mg/dl Total Bilirubin 1.1 H (0.2-1.0) mg/dl AST 14 (13-39) U/L ALT 7 (7-52) U/L Alkaline Phosphatase 89 (34-104) U/L Troponin I High Sens 8.7 (0-20) pg/ml Total Protein 7.4 (6.0-8.3) gm/dl Albumin 4.4 (3.4-5.0) gm/dl Globulin 3.0 (2.5-4.0) gm/dl Albumin/Globulin Ratio 1.5 (0.9-2) Procalcitonin 0.12 (0-0.5) ng/ml Urine Color Yellow Urine Appearance Clear (Clear) Urine pH 5.5 (4.5-7.5) Ur Specific [place] 1.023 (1.000-1.030) Urine Protein Trace H (Negative) Urine Glucose (UA) 3+ H (Negative) Urine Ketones Trace H (Negative) Urine Blood Negative (Negative) Urine Nitrite Negative (Negative) Urine Bilirubin Negative (Negative) Urine Urobilinogen Negative (Negative) Ur Leukocyte Esterase Trace H (Negative) Urine WBC (Auto) 0-5 (0-5) /hpf Urine RBC (Auto) 0-2 (0-2) /hpf U Hyaline Cast (Auto) 6-10 H (0-2) /lpf U Epithel Cells (Auto) 0-2 (0-2) /hpf Urine Bacteria (Auto) None Seen (None Seen) Hyaline Casts Present A (None Presnt) /lpf Adenovirus (PCR) Not Detected (NotDetected) B. pertussis DNA (PCR) Not Detected (NotDetected) B.parapertussis DNA PCR Not Detected (NotDetected) C. pneumoniae DNA (PCR) Not Detected (NotDetected) Coronavirus OC43 (PCR) Not Detected (NotDetected) Coronavirus HKU1 (PCR) Not Detected (NotDetected) Coronavirus 229E (PCR) Not Detected (NotDetected) SARS-CoV-2 (PCR) Not Detected (NotDetected) Coronavirus NL63 (PCR) Not Detected (NotDetected) Human Metapneumovir PCR Not Detected (NotDetected) Influenza Type A (PCR) Not Detected (NotDetected) Influenza Type B (PCR) Not Detected (NotDetected) M. pneumoniae (PCR) Not Detected (NotDetected) Parainfluenza 1 (PCR) Not Detected (NotDetected) Parainfluenza 2 (PCR) Not Detected (NotDetected) Parainfluenza 3 (PCR) Not Detected (NotDetected) Parainfluenza 4 (PCR) Not Detected (NotDetected) RSV (PCR) Not Detected (NotDetected) Entero/Rhino (PCR) Not Detected (NotDetected) Imaging Data Attestation: I personally reviewed and interpreted this imaging study as follows: My Impression: Chest x-ray: No significant change from the chest x-ray in June 2023 Radiologist's Impression: Abdomen/Pelvis CT 01/04/24 19:57 Exam(s): CT ABDOMEN + PELVIS Without Contrast EXAM: CT Abdomen and Pelvis Without Intravenous Contrast CLINICAL HISTORY: Reason for exam: vidya difficulty urinating. TECHNIQUE: Axial computed tomography images of the abdomen and pelvis without intravenous contrast. CTDI is 26.33 mGy and DLP is 1258.19 mGy-cm. Automated exposure control was utilized for the study. A dose lowering technique was utilized adhering to the principles of ALARA. COMPARISON: CT abdomen/pelvis: 08/05/2021 FINDINGS: Image quality is hampered by motion artifact. Lack of IV contrast limits evaluation of soft tissues/vascular structures. Lung bases: Pacemaker intracardiac electrode leads. Likely prior left lower lung lobectomy with a reduced left lung volume and with persistent mediastinal/cardiac shift to the left. Hyperinflated lungs/pulmonary emphysema. Demonstrates small/trace left pleural effusion with interval increased focal area of airspace disease/consolidation and surrounding interstitial infiltrates posteriorly/medially in the left lower lobe. ABDOMEN: Analysis of abdominal/pelvic viscera and vascular structures is limited in absence of IV contrast. Liver: Unremarkable. Gallbladder and bile ducts: Unremarkable. No calcified stones. No ductal dilation. Pancreas: Mild diffuse fatty infiltrate. No ductal dilation. Spleen: Unremarkable. No splenomegaly. Adrenals: Unremarkable. No mass. Kidneys and ureters: Mild/moderately atrophic left kidney. Mildly atrophic right kidney. Bilateral significant perinephric fat stranding. No obvious urinary tract calculi. No hydronephrosis. Stomach and bowel: A small hiatal hernia. Normal caliber small intestine. Increased stool/gas in the ascending and transverse colon. No mucosal thickening. PELVIS: Appendix: Normal appendix. Bladder: A decompressed/reduced capacity bladder is seen with significant mucosal/wall thickening and with stranding of perivesical fat, consistent with an acute cystitis probably bacterial cystitis (series 3 image 285). Reproductive: Centrally a small focal prostate calcification. ABDOMEN and PELVIS: Intraperitoneal space: Increased mesenteric fat/lipomatosis. No free air. No significant fluid collection. Bones/joints: No acute fracture. No dislocation. Multilevel moderate degenerative disc/endplate spondylosis. Lumbar mild levoscoliosis. Soft tissues: Rectus abdominis diastasis. A small/moderate size fat- containing and right inguinal hernias. Vasculature: Diffuse atherosclerotic calcified plaque formation of the aortoiliac vasculature and branch vessels. There is a 6.2 cm long distal aortic 5.3 x 4.9 cm fusiform aneurysmal dilatation (series 300 image 58, series 3 image 169). Lymph nodes: No enlarged lymph nodes.. IMPRESSION: Lung base: Prior left lower lobectomy with reduced left lung volume and with persistent mediastinal/cardiac shift to the left. Interval increased focal area of airspace disease/consolidation posteromedially in the left lower lobe with trace/small left pleural effusion. Pulmonary emphysema. Bilateral significant perinephric fat stranding. No urinary tract calculi identified. No hydronephrosis. Mild/moderately atrophic kidneys. There is a decompressed/reduced capacity urinary bladder with significant mucosal thickening and with stranding of the prevesical fat demonstrated, consistent with an acute cystitis, probably bacterial cystitis. Clinical correlation recommended. Atherosclerotic disease of the aortoiliac vasculature and branch vessels. A 6.2 cm long fusiform 5.3 cm aneurysmal dilatation of the distal abdominal aorta. Additional chronic findings as described above. Electronically signed by: Alex Jenkins MD, DABR 01/04/24 22:42 PM ECG Data Attestation: I personally reviewed and interpreted this ECG as follows: Rate (beats per minute): 99 Rhythm: + normal sinus ECG Intervals/blocks: + Normal [place] and + Normal QT-c ECG ST segments: + Normal ST segments Additional Comments: QRS 72 MDM Narrative 1954: The patient was evaluated in room A10. A complete history and physical exam was performed Cardiac monitoring: An order was placed for continuous cardiac monitoring. The monitor shows a rate of 90 with sinus rhythm interpreted by me 2312: Vital signs stable. Labs are unremarkable with the exception of aCreatinine of 3.14. Baseline is around 2. Imaging shows no obstructive lesions. Patient has a history of AAA and AAA is redemonstrated on imaging today. Patient reporting no abdominal pain. Discussed case with [facility] hospitalist Dr. Serra who will admit the patient. He recommends treating the patient's antibiotics as the thought that the offending agent for the VIDYA is Jardiance and increase incidence of UTIs with Jardiance. Rocephin ordered for the patient. Impression & Plan Acute kidney injury Discharge Plan Visit Data Chief Complaint: Infection Stated Complaint: IFECTION FROM MEDICINE ED Provider: Josef Castañeda Discharge Problem: Acute kidney injury Patient Disposition: Admitted As Inpatient Forms Stand Alone Forms: My [facility] Prescriptions Prescriptions: No Action calcitriol 0.25 mcg capsule 0.25 mcg PO UD Qty: 45 3RF Rx Instructions: 3 times weekly metoprolol succinate 100 mg tablet extended release 24 hr 100 mg PO DAILY Qty: 90 3RF (DME) Oxygen Home Liters Per Minute See Rx Instructions .Route Qty: 1 0RF Rx Instructions: Oxygen at 2lpm via NC with activity and sleep ROMAN 99 lisinopril 5 mg tablet 5 mg PO DAILY Qty: 90 3RF Rx Instructions: fax to [place] Jardiance 25 mg tablet 12.5 mg PO DAILY Qty: 90 3RF Rx Instructions: to be faxed albuterol sulfate 90 mcg/actuation HFA aerosol inhaler 2 puff inhalation Q6H PRN (Reason: Shortness Of Breath Or Wheezing) Qty: 18 3RF Dulera 100-5 mcg/actuation HFA aerosol inhaler 2 puff inhalation BID Qty: 3 4RF atorvastatin 20 mg tablet 10 mg PO HS Eliquis 5 mg tablet 2.5 mg PO BID pantoprazole 40 mg tablet,delayed release (DR/EC) 40 mg PO BID Qty: 180 3RF PreserVision AREDS 2,148 mcg-113 mg-45 mg-17.4mg Tablet 2 tab PO BID Rx Instructions: administer with AM and PM meals Referrals Referrals: Mir Francis, [facility] [Primary Care Provider] -
--- NOTE | 2024-01-04 22:44 | CT Scan Report ---
Exam(s): CT ABDOMEN + PELVIS Without Contrast EXAM: CT Abdomen and Pelvis Without Intravenous Contrast CLINICAL HISTORY: Reason for exam: boone difficulty urinating. TECHNIQUE: Axial computed tomography images of the abdomen and pelvis without intravenous contrast. CTDI is 26.33 mGy and DLP is 1258.19 mGy-cm. Automated exposure control was utilized for the study. A dose lowering technique was utilized adhering to the principles of ALARA. COMPARISON: CT abdomen/pelvis: 08/05/2021 FINDINGS: Image quality is hampered by motion artifact. Lack of IV contrast limits evaluation of soft tissues/vascular structures. Lung bases: Pacemaker intracardiac electrode leads. Likely prior left lower lung lobectomy with a reduced left lung volume and with persistent mediastinal/cardiac shift to the left. Hyperinflated lungs/pulmonary emphysema. Demonstrates small/trace left pleural effusion with interval increased focal area of airspace disease/consolidation and surrounding interstitial infiltrates posteriorly/medially in the left lower lobe. ABDOMEN: Analysis of abdominal/pelvic viscera and vascular structures is limited in absence of IV contrast. Liver: Unremarkable. Gallbladder and bile ducts: Unremarkable. No calcified stones. No ductal dilation. Pancreas: Mild diffuse fatty infiltrate. No ductal dilation. Spleen: Unremarkable. No splenomegaly. Adrenals: Unremarkable. No mass. Kidneys and ureters: Mild/moderately atrophic left kidney. Mildly atrophic right kidney. Bilateral significant perinephric fat stranding. No obvious urinary tract calculi. No hydronephrosis. Stomach and bowel: A small hiatal hernia. Normal caliber small intestine. Increased stool/gas in the ascending and transverse colon. No mucosal thickening. PELVIS: Appendix: Normal appendix. Bladder: A decompressed/reduced capacity bladder is seen with significant mucosal/wall thickening and with stranding of perivesical fat, consistent with an acute cystitis probably bacterial cystitis (series 3 image 285). Reproductive: Centrally a small focal prostate calcification. ABDOMEN and PELVIS: Intraperitoneal space: Increased mesenteric fat/lipomatosis. No free air. No significant fluid collection. Bones/joints: No acute fracture. No dislocation. Multilevel moderate degenerative disc/endplate spondylosis. Lumbar mild levoscoliosis. Soft tissues: Rectus abdominis diastasis. A small/moderate size fat- containing and right inguinal hernias. Vasculature: Diffuse atherosclerotic calcified plaque formation of the aortoiliac vasculature and branch vessels. There is a 6.2 cm long distal aortic 5.3 x 4.9 cm fusiform aneurysmal dilatation (series 300 image 58, series 3 image 169). Lymph nodes: No enlarged lymph nodes.. IMPRESSION: Lung base: Prior left lower lobectomy with reduced left lung volume and with persistent mediastinal/cardiac shift to the left. Interval increased focal area of airspace disease/consolidation posteromedially in the left lower lobe with trace/small left pleural effusion. Pulmonary emphysema. Bilateral significant perinephric fat stranding. No urinary tract calculi identified. No hydronephrosis. Mild/moderately atrophic kidneys. There is a decompressed/reduced capacity urinary bladder with significant mucosal thickening and with stranding of the prevesical fat demonstrated, consistent with an acute cystitis, probably bacterial cystitis. Clinical correlation recommended. Atherosclerotic disease of the aortoiliac vasculature and branch vessels. A 6.2 cm long fusiform 5.3 cm aneurysmal dilatation of the distal abdominal aorta. Additional chronic findings as described above. Electronically signed by: Alex Jenkins MD, DABR 01/04/24 22:42 PM
[2024-01-04] MEDS: cefTRIAXone SODIUM 2,000 MG/50 ML BAG IV STA (23:22)
--- NOTE | 2024-01-04 23:58 | History & Physical Report ---
Date of Service January 04, 2024 Assessment & Plan (1) Palpitations: (2) SVT (supraventricular tachycardia): (3) Nonsustained ventricular tachycardia: (4) Tachy-jourdan syndrome: (5) Pacemaker: (6) Acute kidney injury superimposed on chronic kidney disease: (7) Esophageal dysphagia: (8) BPH NOS w ur obs/LUTS: (9) Lung cancer: (10) Hypertension: (11) AAA (abdominal aortic aneurysm) without rupture: Plan Palpitations/nonsustained V. tach/SVT/tachybradycardia syndrome/pacemaker presents- Patient noted as one of his complaints, palpitations prior to arrival in the emergency department this evening. Interrogation of his [employer] pacemaker this evening revealed at least 6 episodes of SVT since the most recent interrogation on 12/04. The most recent SVT was at 3:54 PM, and 5:41 PM. An episode of nonsustained V. tach was also noted on 12/29 The patient will be admitted to telemetry for serial cardiac enzymes, serial EKG's, cardiac rhythm monitoring and a 2-D echocardiogram with Dopplers. Continue apixaban and metoprolol succinate Hold lisinopril Consult cardiology Diabetes mellitus- Hold empagliflozin/Jardiance, patient is concerned that this medication may be causing his symptoms Glucose 130 on admission We will hold on routine checks until a.m. laboratories, including hemoglobin A1c Cystitis- Pyuria noted, with CT scan suggesting acute cystitis NSS at 80 mL/h x 1 L Continue ceftriaxone 2 g IV daily, begun in the ED Acute kidney injury superimposed on CKD- Creatinine 3.14, with base 2.04 Hold lisinopril as noted NSS at 80 mL/h x 1 L Recheck laboratories in a.m. History of Present Illness Chief Complaint: The patient presented to the emergency department with concerns regarding palpitations, which he experienced earlier in the evening, and dizziness, shortness of breath, and generalized weakness. He is concerned about the possibility of Jardiance possibly contributing to or causing his symptoms. Primary Care Provider: CLAY BruceC The patient is a 83-year-old male with a past medical history including esophageal dysphagia, pacemaker, tachybradycardia syndrome, atrial fibrillation, COPD, lung cancer, hypertension, chronic respiratory failure with hypoxia, secondary hyperparathyroidism, history of VIDYA on CKD, vitamin D deficiency, stage IIIb CKD and BPH with LUTS associated with neurogenic bladder. The patient presents to the emergency department with symptoms as noted above. Allergies Allergy/AdvReac Type Severity Reaction Status Date / Time simvastatin [From Zocor] Allergy Unknown myalgia Verified 12/05/23 12:17 Home Medications Medication Instructions Recorded Confirmed Type atorvastatin 20 mg tablet 10 mg PO HS 11/05/21 12/06/23 History vitamins A,C,O-wifl-ltbkdb 2,148 2 tab PO BID 02/16/23 12/06/23 History mcg-113 mg-45 mg-17.4 mg tablet (PreserVision AREDS) calcitriol 0.25 mcg capsule 0.25 mcg PO UD #45 caps 04/26/23 12/06/23 Rx albuterol sulfate 90 mcg/actuation 2 puff inhalation Q6H PRN 05/03/23 12/06/23 Rx aerosol inhaler Shortness Of Breath Or Wheezing #18 grams mometasone-formoterol HFA 100 2 puff inhalation BID #3 Inhalers 05/03/23 12/06/23 Rx mcg-5 mcg/actuation aerosol inhaler (Dulera) apixaban 5 mg tablet (Eliquis) 2.5 mg PO BID 05/30/23 12/06/23 History metoprolol succinate 100 mg 100 mg PO DAILY #90 tabs 08/24/23 12/06/23 Rx tablet,extended release 24 hr Oxygen Home #1 ea 10/03/23 12/06/23 Rx pantoprazole 40 mg tablet,delayed 40 mg PO BID #180 tabs 11/07/23 12/06/23 Rx release lisinopril 5 mg tablet 5 mg PO DAILY #90 tabs 12/12/23 Rx empagliflozin 25 mg tablet 12.5 mg (1/2 x 25 mg) PO DAILY #90 12/28/23 Rx tabs Past Med/Surg History Problem List (Updated 01/05/24 @ 04:35 by Art Shearer MD) Palpitations AAA (abdominal aortic aneurysm) without rupture ~8-10 yrs; recent eval [facility] 08/09/23 Nonsustained ventricular tachycardia SVT (supraventricular tachycardia) Esophageal dysphagia 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, 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 Chronic respiratory failure with hypoxia Nocturnal hypoxia Secondary hyperparathyroidism COVID-19 (Acute) Acute kidney injury superimposed on chronic kidney disease Multiple closed fractures of ribs of right side (Acute) Fall from standing (Acute) Colon cancer screening Lightheadedness History of hematuria Anemia due to chronic kidney disease Vitamin D deficiency resolved Acute kidney injury (Acute) Stage 3b chronic kidney disease History of loop recorder Sinus pause Elevated prostate specific antigen (PSA) Bladder neck contracture Hypersomnia Ex-smoker Exertional shortness of breath COPD with emphysema BPH NOS w ur obs/LUTS Neurogenic bladder Anticoagulant long-term use Acute kidney injury (Acute) Atrial fibrillation hx- pacemaker placed 07/05/23 currently on eliquis; marni parker COPD (chronic obstructive pulmonary disease) (Chronic) daily and prn inh Hypertension (Chronic) hx Medical History Hx of tachycardia-bradycardia syndrome Secondary hyperparathyroidism HTN (hypertension) Hx of cancer of lung dx 2018, sx and chemo COPD (chronic obstructive pulmonary disease) daily and prn inh Atrial fibrillation hx- pacemaker placed 07/05/23 currently on eliquis; marni parker Anticoagulant long-term use Stage 3 chronic kidney disease follows w/ Dr Young Anemia due to chronic kidney disease receiving iron infusions 09/2023 Nocturnal hypoxia Chronic respiratory failure Esophageal dysphagia improved 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, tachy-jourdan syndrome-Dr Jimenez On home oxygen therapy 2 lpm via NC at night and prn during the day SOB (shortness of breath) on exertion AAA (abdominal aortic aneurysm) without rupture ~8-10 yrs; recent eval [facility] 08/09/23 History of COVID-19 03/2023 no hosp; resolved Neurogenic bladder Macular degeneration of right eye GERD (gastroesophageal reflux disease) Hyperlipidemia Self-catheterizes urinary bladder Glaucoma both eyes Surgical History Status post placement of cardiac pacemaker pacemaker placed 07/05/23 currently on eliquis; marni parker History of loop recorder removed 06/2023, mn w/dr. jimenez Hx of hernia repair as a baby Hx of colonoscopy Hx of bilateral cataract extraction History of lobectomy of lung 2019, lt lower lobe due to cancer, also received chemo Hx of transurethral resection of prostate Family History Mother Lung cancer Diabetes Father Lung cancer Social History Smoking Status: Former smoker Tobacco Type: Cigarettes Age Started Using Tobacco: 20; Age Quit Using Tobacco: 67; packs per day: 2; Cigarettes Per Day: 2 packs a day.; Second Hand Exposure: No; Do You Dip or Chew Tobacco: No; Hx Alcohol Use: No Hx Substance Use: No Preferred Language: [place] Communication Ability: Effective Manager Corporate Required: No Beliefs That Will Affect Care: None marital status: Single Current Living Situation: Alone current occupational status: retired Feels Safe at Home: Yes Safety Concerns: Feels Safe At This Time Assistive Devices: Denture - Upper, Denture - Lower, Glasses and Oxygen - Continuous Review of Systems Review of Systems: The patient denies chest pain, shortness of breath, dyspnea on exertion, cough, lower extremity swelling, sore throat, fevers, chills, sweats, nausea, vomiting, diarrhea , constipation, abdominal pain, pelvic pain, blood in urine or stool, lightheadedness, dizziness, headache, memory loss, loss of consciousness, rash, abnormal bruising or bleeding, imbalance, focal weakness, numbness or tingling in arms or legs, generalized arthralgias or myalgias, back or neck pain, or night sweats. The review of systems is otherwise negative other than for that already noted above, and at least 10 systems have been reviewed. Physical Exam Physical Exam: The patient is awake, alert and oriented 3, well developed and well nourished, normocephalic and atraumatic, lying in bed and in no acute distress. HEENT--PERRL, EOMI, mucous membranes and oropharynx dry. Neck--supple. No JVD. No bruits. Thyroid normal, trachea midline, no a denopathy. Heart--normal S1 and S2. Occasional PVCs. No murmurs, rubs or gallops. Lungs--clear bilaterally, no respiratory distress, no accessory muscle use. Abdomen--normal bowel sounds and soft. Nontender. Nondistended, no hernias or masses, no organomegaly. Extremities--no cyanosis or clubbing. No edema. Dermatologic--skin is mildly dry Neurologic--cranial nerves II through XII grossly intact. Rheumatologic--normal range of motion. Psychiatric--normal affect. Results & Data Results & Data Vital Signs (Past 12 Hours) Vital Signs Temp Pulse Pulse Resp BP BP Pulse Ox 01/04/24 23:38 72 01/04/24 23:00 119/71 01/04/24 23:00 26 H 95 01/04/24 22:30 72 22 97 01/04/24 22:09 84 23 95 01/04/24 22:00 125/65 01/04/24 21:51 36.7 C 82 20 123/68 96 01/04/24 21:50 123/68 01/04/24 21:39 75 22 96 01/04/24 21:33 74 22 96 01/04/24 21:00 79 22 96 01/04/24 20:36 82 22 97 01/04/24 20:03 96 H 20 97 01/04/24 19:36 78 22 98 01/04/24 19:36 78 01/04/24 19:34 91 H 18 129/76 96 01/04/24 19:33 129/76 01/04/24 17:57 36.6 C 112 H 24 100/64 93 O2 Del Method O2 Flow Rate 01/04/24 23:38 01/04/24 23:00 01/04/24 23:00 01/04/24 22:30 01/04/24 22:09 01/04/24 22:00 01/04/24 21:51 Nasal Cannula 3 01/04/24 21:50 01/04/24 21:39 01/04/24 21:33 01/04/24 21:00 01/04/24 20:36 01/04/24 20:03 01/04/24 19:36 01/04/24 19:36 01/04/24 19:34 Nasal Cannula 3 01/04/24 19:33 01/04/24 17:57 Nasal Cannula 2 Laboratory Results Laboratory Results WBC 9.91 K/ul (4.8-10.8) 01/04/24 18:22 RBC 4.75 M/uL (4.70-6.10) 01/04/24 18:22 Hgb 14.5 g/dl (14.0-18.0) 01/04/24 18:22 Hct 44.1 % (42.0-52.0) 01/04/24 18: MCV 92.8 fL (80.0-100.0) 01/04/24 18: MCH 30.5 pg (25.0-34.0) 01/04/24 18: MCHC 32.9 g/dL (32.0-36.0) 01/04/24 18: RDW Std Deviation 43.5 fL (36.4-46.3) 01/04/24 18: RDW Coeff of Jacque 12.9 % (11.5-14.5) 01/04/24 18: Plt Count 153 K/uL (130-400) 01/04/24 18: MPV 9.6 fL (9.4-12.4) 01/04/24 18: Immature Gran % (Auto) 0.4 % 01/04/24 18: Neut % (Auto) 68.7 % 01/04/24 18: Lymph % (Auto) 18.0 % 01/04/24 18: [place] % (Auto) 11.2 % 01/04/24 18: Eos % (Auto) 1.3 % 01/04/24 18: Baso % (Auto) 0.4 % 01/04/24 18: Neut # (Auto) 6.81 K/uL (1.40-6.50) H 01/04/24 18:22 Lymph # (Auto) 1.78 K/uL (1.20-3.40) 01/04/24 18: [place] # (Auto) 1.11 K/uL (0.11-0.59) H 01/04/24 18: Eos # (Auto) 0.13 K/uL (0.00-0.50) 01/04/24 18: Baso # (Auto) 0.04 K/uL (0.00-0.20) 01/04/24 18: Immature Gran # (Auto) 0.04 K/uL (0.01-0.20) 01/04/24 18: ESR 60 mm/hr (0-20) H 01/04/24 18: PT 11.6 Seconds (9.0-12.0) 01/04/24 18:22 INR 1.1 (0.9-1.1) 01/04/24 18:22 Sodium 138 mmol/L (136-145) 01/04/24 18:22 Potassium 4.5 mmol/L (3.5-5.1) 01/04/24 18:22 Chloride 104 mmol/L (98-107) 01/04/24 18:22 Carbon Dioxide 24 mmol/L (21-32) 01/04/24 18:22 Anion Gap 10 (3-11) 01/04/24 18:22 BUN 35 mg/dl (6-23) H 01/04/24 18:22 Creatinine 3.14 mg/dl (0.6-1.4) H 01/04/24 18:22 Est Cr Clr Drug Dosing 20.1 ml/min 01/04/24 18:22 Est GFR ( Amer) 20.4 ml/min 01/04/24 18:22 Est GFR (Non-Af Amer) 17.6 ml/min 01/04/24 18:22 BUN/Creatinine Ratio 11.1 (10-20) 01/04/24 18:22 Glucose 130 mg/dl (70-99(Fasting)) H 01/04/24 18:22 Calcium 9.8 mg/dl (8.6-10.3) 01/04/24 18:22 Total Bilirubin 1.1 mg/dl (0.2-1.0) H 01/04/24 18:22 AST 14 U/L (13-39) 01/04/24 18:22 ALT 7 U/L (7-52) 01/04/24 18:22 Alkaline Phosphatase 89 U/L (34-104) 01/04/24 18:22 Troponin I High Sens 8.7 pg/ml (0-20) 01/04/24 18:22 Total Protein 7.4 gm/dl (6.0-8.3) 01/04/24 18:22 Albumin 4.4 gm/dl (3.4-5.0) 01/04/24 18:22 Globulin 3.0 gm/dl (2.5-4.0) 01/04/24 18:22 Albumin/Globulin Ratio 1.5 (0.9-2) 01/04/24 18:22 Procalcitonin 0.12 ng/ml (0-0.5) 01/04/24 18:22 Urine Color Yellow 01/04/24 20:02 Urine Appearance Clear (Clear) 01/04/24 20: Urine pH 5.5 (4.5-7.5) 01/04/24 20:02 Ur Specific [place] 1.023 (1.000-1.030) 01/04/24 20:02 Urine Protein Trace (Negative) H 01/04/24 20:02 Urine Glucose (UA) 3+ (Negative) H 01/04/24 20:02 Urine Ketones Trace (Negative) H 01/04/24 20:02 Urine Blood Negative (Negative) 01/04/24 20: Urine Nitrite Negative (Negative) 01/04/24 20: Urine Bilirubin Negative (Negative) 01/04/24 20: Urine Urobilinogen Negative (Negative) 01/04/24 20:02 Ur Leukocyte Esterase Trace (Negative) H 01/04/24 20:02 Urine WBC (Auto) 0-5 /hpf (0-5) 01/04/24 20:02 Urine RBC (Auto) 0-2 /hpf (0-2) 01/04/24 20:02 U Hyaline Cast (Auto) 6-10 /lpf (0-2) H 01/04/24 20:02 U Epithel Cells (Auto) 0-2 /hpf (0-2) 01/04/24 20:02 Urine Bacteria (Auto) None Seen (None Seen) 01/04/24 20:02 Hyaline Casts Present /lpf (None Presnt) A 01/04/24 20:02 Adenovirus (PCR) Not Detected (NotDetected) 01/04/24 18:22 B. pertussis DNA (PCR) Not Detected (NotDetected) 01/04/24 18:22 B.parapertussis DNA PCR Not Detected (NotDetected) 01/04/24 18:22 C. pneumoniae DNA (PCR) Not Detected (NotDetected) 01/04/24 18:22 Coronavirus OC43 (PCR) Not Detected (NotDetected) 01/04/24 18:22 Coronavirus HKU1 (PCR) Not Detected (NotDetected) 01/04/24 18:22 Coronavirus 229E (PCR) Not Detected (NotDetected) 01/04/24 18:22 SARS-CoV-2 (PCR) Not Detected (NotDetected) 01/04/24 18:22 Coronavirus NL63 (PCR) Not Detected (NotDetected) 01/04/24 18:22 Human Metapneumovir PCR Not Detected (NotDetected) 01/04/24 18:22 Influenza Type A (PCR) Not Detected (NotDetected) 01/04/24 18:22 Influenza Type B (PCR) Not Detected (NotDetected) 01/04/24 18:22 M. pneumoniae (PCR) Not Detected (NotDetected) 01/04/24 18:22 Parainfluenza 1 (PCR) Not Detected (NotDetected) 01/04/24 18:22 Parainfluenza 2 (PCR) Not Detected (NotDetected) 01/04/24 18:22 Parainfluenza 3 (PCR) Not Detected (NotDetected) 01/04/24 18:22 Parainfluenza 4 (PCR) Not Detected (NotDetected) 01/04/24 18:22 RSV (PCR) Not Detected (NotDetected) 01/04/24 18:22 Entero/Rhino (PCR) Not Detected (NotDetected) 01/04/24 18:22 Impressions Abdomen/Pelvis CT 01/04/24 19:57 Exam(s): CT ABDOMEN + PELVIS Without Contrast EXAM: CT Abdomen and Pelvis Without Intravenous Contrast CLINICAL HISTORY: Reason for exam: vidya difficulty urinating. TECHNIQUE: Axial computed tomography images of the abdomen and pelvis without intravenous contrast. CTDI is 26.33 mGy and DLP is 1258.19 mGy-cm. Automated exposure control was utilized for the study. A dose lowering technique was utilized adhering to the principles of ALARA. COMPARISON: CT abdomen/pelvis: 08/05/2021 FINDINGS: Image quality is hampered by motion artifact. Lack of IV contrast limits evaluation of soft tissues/vascular structures. Lung bases: Pacemaker intracardiac electrode leads. Likely prior left lower lung lobectomy with a reduced left lung volume and with persistent mediastinal/cardiac shift to the left. Hyperinflated lungs/pulmonary emphysema. Demonstrates small/trace left pleural effusion with interval increased focal area of airspace disease/consolidation and surrounding interstitial infiltrates posteriorly/medially in the left lower lobe. ABDOMEN: Analysis of abdominal/pelvic viscera and vascular structures is limited in absence of IV contrast. Liver: Unremarkable. Gallbladder and bile ducts: Unremarkable. No calcified stones. No ductal dilation. Pancreas: Mild diffuse fatty infiltrate. No ductal dilation. Spleen: Unremarkable. No splenomegaly. Adrenals: Unremarkable. No mass. Kidneys and ureters: Mild/moderately atrophic left kidney. Mildly atrophic right kidney. Bilateral significant perinephric fat stranding. No obvious urinary tract calculi. No hydronephrosis. Stomach and bowel: A small hiatal hernia. Normal caliber small intestine. Increased stool/gas in the ascending and transverse colon. No mucosal thickening. PELVIS: Appendix: Normal appendix. Bladder: A decompressed/reduced capacity bladder is seen with significant mucosal/wall thickening and with stranding of perivesical fat, consistent with an acute cystitis probably bacterial cystitis (series 3 image 285). Reproductive: Centrally a small focal prostate calcification. ABDOMEN and PELVIS: Intraperitoneal space: Increased mesenteric fat/lipomatosis. No free air. No significant fluid collection. Bones/joints: No acute fracture. No dislocation. Multilevel moderate degenerative disc/endplate spondylosis. Lumbar mild levoscoliosis. Soft tissues: Rectus abdominis diastasis. A small/moderate size fat- containing and right inguinal hernias. Vasculature: Diffuse atherosclerotic calcified plaque formation of the aortoiliac vasculature and branch vessels. There is a 6.2 cm long distal aortic 5.3 x 4.9 cm fusiform aneurysmal dilatation (series 300 image 58, series 3 image 169). Lymph nodes: No enlarged lymph nodes.. IMPRESSION: Lung base: Prior left lower lobectomy with reduced left lung volume and with persistent mediastinal/cardiac shift to the left. Interval increased focal area of airspace disease/consolidation posteromedially in the left lower lobe with trace/small left pleural effusion. Pulmonary emphysema. Bilateral significant perinephric fat stranding. No urinary tract calculi identified. No hydronephrosis. Mild/moderately atrophic kidneys. There is a decompressed/reduced capacity urinary bladder with significant mucosal thickening and with stranding of the prevesical fat demonstrated, consistent with an acute cystitis, probably bacterial cystitis. Clinical correlation recommended. Atherosclerotic disease of the aortoiliac vasculature and branch vessels. A 6.2 cm long fusiform 5.3 cm aneurysmal dilatation of the distal abdominal aorta. Additional chronic findings as described above. Electronically signed by: Alex Jenkins MD, DABR 01/04/24 22:42 PM Code Status & VTE Plan Code Status full code VTE Prophylaxis Plan VTE Prophylaxis will be ordered: Yes PG Care Time/CCT Total # of Minutes Spent Total Time Spent with Patient: Total time spent is greater than 50% in coordination of care (as documented) at patient's floor/unit and/or counseling patient: Coding Level of Care Code 92930 INT INP/OBS CARE 3/75MIN Diagnoses Palpitations R00.2 SVT (supraventricular tachycardia) I47.10 Nonsustained ventricular tachycardia I47.29 Tachy-jourdan syndrome I49.5 Pacemaker Z95.0 Acute kidney injury superimposed on chronic kidney disease N17.9; N18.9 Esophageal dysphagia R13.19 BPH NOS w ur obs/LUTS N40.1 Lung cancer C34.90 Primary hypertension I10 Hypertension type: primary hypertension AAA (abdominal aortic aneurysm) without rupture I71.40 (10) Hypertension Hypertension type: primary hypertension Qualified Code(s): I10 - Essential (primary) hypertension
[2024-01-05] MEDS ORDERED: ALBUTEROL HFA 8 GM INHALER INH PRN (01:48)
[2024-01-05 04:50] LABS: Basophils # (auto) 0.03 K/uL (0.00-0.20); Basophils % (auto) 0.4 %; Eosinophils # (auto) 0.18 K/uL (0.00-0.50); Eosinophils % (auto) 2.5 %; Hematocrit (blood only) 36.2 % (42.0-52.0); Hemoglobin 12.1 g/dl (14.0-18.0); Immature Granulocytes # (auto) 0.02 K/uL (0.01-0.20); Immature Granulocytes % (auto) 0.3 %; Lymphocytes # (auto) 1.92 K/uL (1.20-3.40); Lymphocytes % (auto) 26.9 %; Mean Corpuscular Hemoglobin 31.3 pg (25.0-34.0); Mean Corpuscular Hgb Conc 33.4 g/dL (32.0-36.0); Mean Corpuscular Volume 93.5 fL (80.0-100.0); Mean Platelet Volume 9.4 fL (9.4-12.4); Monocytes # (auto) 0.92 K/uL (0.11-0.59); Monocytes % (auto) 12.9 %; Neutrophils # (auto) 4.07 K/uL (1.40-6.50); Platelet Count 131 K/uL (130-400); RDW Coefficient of Variation 12.8 % (11.5-14.5); RDW Standard Deviation 43.8 fL (36.4-46.3); Red Blood Count 3.87 M/uL (4.70-6.10); White Blood Count 7.14 K/ul (4.8-10.8)
[2024-01-05 05:02] LABS: Albumin Level 3.6 gm/dl (3.4-5.0); BUN Creatinine Ratio 13.4 (10-20); Calcium 8.6 mg/dl (8.6-10.3); Creatinine Clr Calc Pharmacy 21.6 ml/min; Est GFR (African American) 22.3 ml/min; Est GFR (Non-African American) 19.2 ml/min; Magnesium 1.9 mg/dl (1.7-2.4); Phosphorus 4.4 mg/dl (2.5-4.9); Potassium 4.2 mmol/L (3.5-5.1)
--- NOTE | 2024-01-05 06:46 | XRay Report ---
XR chest 1V portable HISTORY: 83 years-old Male SOB acute shortness of breath COMPARISON: 07/06/2023 TECHNIQUE: AP view of the chest FINDINGS: Cardiac silhouette is enlarged. The patient is mildly rotated towards the left. Chronic mid left clav icular fracture deformity with chronic right-sided rib fractures. There is no pneumothorax or large p leural effusion. Pulmonary emphysema. There is chronic left lung volume loss with left costophrenic a ngle blunting and left basilar scarring. Chronic interstitial coarsening of the lungs. Pulmonary vasc ular congestion. IMPRESSION: 1. Cardiomegaly with pulmonary vascular congestion. 2. Chronic changes of the left hemithorax. 3. Pulmonary emphysema. ACT 112: Negative or not required by law. The above report was generated using voice recognition software. It may contain grammatical, syntax o r spelling errors. Electronically signed by: Ramón Casey M.D. 01/05/2024 6:44 AM
[2024-01-05 07:16] LABS: Estimated Average Glucose 114 mg/dl; Hemoglobin A1C 5.6 % (4.5-5.6)
--- NOTE | 2024-01-05 08:05 | Hospitalist Progress Note ---
Date of Service January 05, 2024 Assessment & Plan (1) Palpitations: Plan: Palpitations/nonsustained V. tach/SVT/tachybradycardia syndrome/pacemaker presents- Patient noted as one of his complaints, palpitations prior to arrival in the emergency department this evening. Interrogation of his [employer] pacemaker this evening revealed at least 6 episodes of SVT since the most recent interrogation on 12/04. The most recent SVT was at 3:54 PM, and 5:41 PM. An episode of nonsustained V. tach was also noted on 12/29 The patient will be admitted to telemetry for serial cardiac enzymes, serial EKG's, cardiac rhythm monitoring and a 2-D echocardiogram with Dopplers. Continue apixaban and metoprolol succinate Hold lisinopril Consult cardiology CXR w/ pulmonary vascular congestion and has required supplemental O2 (reports 2L HS at baseline but using w/ going on errands past two days) NSS @ 80cc/hr on admission, will discontinue for now and push IVF/hold lisinopril to prevent volume overload ?related to hypotension given reports lightheadedness/dizziness in the afternoons (also reported fever 101F on tuesday w/ symptoms, no sputum production) ECHO ordered, pacemaker interrogation Cardiology consulted Trop 8.7--> 10.7 --> 8.0, no CP reported Given metoprolol 100mg this morning but reports having issues w/ He takes this 50mg BID, will change for AM. Also suspect lisinopril may cause VIDYA w/ dehydration and will remain on hold for now Initially cards w/ concerns for possible GI bleeding w/ hgb 14--> 12 on repeat but suspect given VIDYA on admission and prior baselines/gotten IVF and no abd pain suspect was dehydrated. Eliquis held but placed orders to continue Added urine cx as obtained UA/CT findings however no cx pending. (does straight cath) Did get dose Ceftriaxone to note this morning prior to obtaining and should cover for lungs as well given CT appearance on admission however no cough/sputum production Telemetry monitoring Added PT/OT consults (2) SVT (supraventricular tachycardia): Plan: as above. has also identified episodes of afib ~4 hours at a time per most recent cardiology note remains on metoprolol as above ordered 100mg daily however note appears with patient taking 50mg BID? - changing to 50mg BID for AM 01/05 as already got dose for today Also restarted on PPI BID recently due to hx gastric ulcer and moderate/severe esophagitis in setting of Eliquis use Mag 1.9 on admission, will order 1gm IV. ?contributing. Continue to monitor /monitor on telemetry as above (3) Stage 3b chronic kidney disease: Plan: Acute kidney injury superimposed on CKD- Creatinine 3.14, with base 2.04 Lisinopril placed on HOLD, NS @ 80cc/hr ordered, BUN/Cr 39/2.92 Ceftriaxone for suspected urinary tract infection as above. Patient reports clear yellow urine/straight cath at baseline Monitor for urinary retention/issues Renal dose meds/avoid nephrotoxins JARDIANCE on hold, ?AIN Consider consult to nephrology but suspect should NOT be on lisinopril given CKD/hypotension issues and K 5.1 in november but is stable at present time and will monitor BMP in AM Cystitis- Pyuria noted, with CT scan suggesting acute cystitis. Did have temp 101F on Tuesday per patient IVF as above Continue ceftriaxone 2 g IV daily, begun in the ED (4) Diabetes mellitus: Plan: Diabetes mellitus- Hold empagliflozin/Jardiance, patient is concerned that this medication may be causing his symptoms Glucose 130 on admission A1c 5.6 Will add BSG AC/HS to monitor/see if having any hypoglycemia Monitor (5) Nonsustained ventricular tachycardia: (6) Tachy-jourdan syndrome: (7) Pacemaker: (8) Acute kidney injury superimposed on chronic kidney disease: (9) Esophageal dysphagia: (10) BPH NOS w ur obs/LUTS: (11) Lung cancer: (12) Hypertension: (13) AAA (abdominal aortic aneurysm) without rupture: Admission and Anticipated Discharge Date Admission Date: January 04, 2024 Subjective Eval this morning, resting in bed. Feels better, no current complaints. Typically wears O2 at night but reports having to use yesterday with oximeter in 90-91% range and did report having fever at home on tuesday to 101F and took tylenol with resolution. He notes he had some shortness of breath at that time but no sputum production. Denies urinary symptoms and reports yellow in color but no burning/frequency as he straight caths. Ceftriaxone IV continued and urine cx ordered but did get dose this morning. Inquiring about his PreserVision, if able to have someone bring in can order to have. Pacemaker interrogation and ECHO performed this morning but not yet read. He thinks similar symptoms prior to his pacemaker in the past however not overly clear. Moved bowels yesterday, not today. No abdominal pain reported or nausea but does have some intermittent cramping to his LUQ/stomach area. To hold off his jardiance for now. Also inquired about metoprolol use and he takes 50mg in morning and 50mg at night. Will adjust for tomorrow as already provided 100mg this morning. BP 128/64. IVF discontinued given CXR w/ pulmonary vascular congestion. Questions/concerns addressed at this time. Physical Exam Physical Exam: General: 83yo male sitting up in bed, NAD, reports feeling well HEENT head atraumatic, normocephalic, mm moist, trachea midline Resp: diminished in the bases with bibasilar crackles, no wheezing, on 3L NC CV: RRR, paced on telemetry/occ PAC/PVC, no significant m/r/g, no pitting edema GI: +BS, soft/NT no davis (reports st cath) MSK/Neuro: nonfocal, answering questions appropriately Psych: alert/oriented x 3 but not the best historian at times but calm/cooperative Results & Data Results & Data Vital Signs (Past 12 Hours) Vital Signs Temp Pulse Pulse Resp BP BP Pulse Ox 01/05/24 04:09 01/05/24 04:03 68 19 95 01/05/24 04:00 108/57 L 01/05/24 04:00 108/57 L 01/05/24 03:51 64 17 97 01/05/24 03:00 66 21 96 01/05/24 02:14 36.9 C 73 21 142/69 H 98 01/05/24 02:00 142/69 H 01/05/24 02:00 142/69 H 01/05/24 02:00 142/69 H 01/05/24 02:00 78 20 96 01/05/24 01:48 01/05/24 01:03 72 24 96 01/05/24 01:00 114/56 L 01/05/24 01:00 114/56 L 01/05/24 00:39 87 23 97 01/05/24 00:00 121/64 01/05/24 00:00 71 18 97 01/04/24 23:38 72 01/04/24 23:00 119/71 01/04/24 23:00 26 H 95 01/04/24 22:30 72 22 97 01/04/24 22:09 84 23 95 01/04/24 22:00 125/65 01/04/24 21:51 36.7 C 82 20 123/68 96 01/04/24 21:50 123/68 01/04/24 21:39 75 22 96 01/04/24 21:33 74 22 96 01/04/24 21:00 79 22 96 01/04/24 20:36 82 22 97 01/04/24 20:03 96 H 20 97 O2 Del Method O2 Flow Rate 01/05/24 04:09 Nasal Cannula 01/05/24 04:03 01/05/24 04:00 01/05/24 04:00 01/05/24 03:51 01/05/24 03:00 01/05/24 02:14 Nasal Cannula 3 01/05/24 02:00 01/05/24 02:00 01/05/24 02:00 01/05/24 02:00 Nasal Cannula 3 01/05/24 01:48 Nasal Cannula 01/05/24 01:03 01/05/24 01:00 01/05/24 01:00 01/05/24 00:39 01/05/24 00:00 01/05/24 00:00 Nasal Cannula 3 01/04/24 23:38 01/04/24 23:00 01/04/24 23:00 01/04/24 22:30 01/04/24 22:09 01/04/24 22:00 01/04/24 21:51 Nasal Cannula 3 01/04/24 21:50 01/04/24 21:39 01/04/24 21:33 01/04/24 21:00 01/04/24 20:36 01/04/24 20:03 PG Care Time/CCT Total # of Minutes Spent Total Time Spent with Patient: Total time spent is greater than 50% in coordination of care (as documented) at patient's floor/unit and/or counseling patient: Coding Level of Care Code 87351 SUB INP/OBS CARE 3/50MIN Diagnoses Palpitations R00.2 SVT (supraventricular tachycardia) I47.10 Stage 3b chronic kidney disease N18.32 Diabetes mellitus E11.9 Nonsustained ventricular tachycardia I47.29 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
[2024-01-05] MEDS: cefTRIAXone SODIUM 2,000 MG/50 ML BAG IV SCH (08:29)
[2024-01-05] MEDS: FLUTICASONE/VILANTEROL 100/25MCG 14 PUFFS/INHALER INH SCH (08:30)
[2024-01-05] MEDS: METOPROLOL SUCC 50MG EXT REL TAB PO SCH (08:30)
[2024-01-05] MEDS: PANTOprazole 40 MG TAB PO SCH (08:31)
[2024-01-05] MEDS: APIXABAN 2.5 MG TAB PO SCH (08:31)
[2024-01-05] MEDS ORDERED: NON-FORMULARY MEDICATION (Vitamins A,C,E-Zinc-Copper [Preservision Areds] 2,148 mcg-113 mg PO SCH (09:00)
[2024-01-05] MEDS: MAGNESIUM SULFATE / D5W 1 GM/100 ML BAG IV ONE (09:07)
[2024-01-05 09:08] LABS: Thyroid Stimulating Hormone 4.051 uIu/ml (0.300-4.500)
--- NOTE | 2024-01-05 10:42 | Cardiology Consultation ---
Date of Consultation January 05, 2024 Assessment & Plan (1) Lightheadedness: (2) Sinus tachycardia: (3) Pacemaker: (4) Atrial fibrillation: (5) Anticoagulant long-term use: Plan 1. Lightheadedness: He reports worsening lightheadedness for several days before presentation, he also noticed an elevated heart rate on his pulse oximeter. He has a long history of lightheadedness, we have never been quite sure of the cause but has not typically been associated with arrhythmias. Although he did have a high heart rate on this occasion I am not convinced that the heart rate caused the lightheadedness. 2. Sinus tachycardia: Although the rhythm was classified by the pacemaker has a supraventricular tachycardia, that is based on the heart rate and programming not the morphology. It appears to be sinus tachycardia. In addition he has had much less pacing over the last month and he has had a steadily increasing heart rate over the last month. According to the chart he is still taking his metoprolol succinate but I wonder if he was taking it. Beta-chelsea withdrawal would be consistent with this finding. Hypotension with a secondary tachycardia would also be consistent. Blood loss is a possibility, I thought the drop this morning might be in an error, however on repeat his hemoglobin was 12.0. If it truly dropped by that amount perhaps he has a bleed somewhere. 3. Dual-chamber pacemaker: The pacemaker was interrogated, lead characteristics, battery performance and pacing and sensing thresholds were evaluated. Stored data was downloaded and evaluated. Battery and lead performance is stable. There were no significant arrhythmias identified since last visit other than what appears to be sinus tachycardia as noted above. 4. Atrial fibrillation: He did have atrial fibrillation identified with his loop recorder, he was not in it a large amount of time however some episodes were relatively prolonged (perhaps 4 hours). He remains on anticoagulation and AV rosita blocking medications but has had no significant atrial fibrillation since device implantation, only very brief episodes and none since last interrogation a month ago. 5. Anticoagulation: He is doing well on Eliquis at a reduced dose, with good documentation of atrial fibrillation I recommended he continue. However if a bleed is suspected there is very little risk to holding it since he has very little atrial fibrillation. History of Present Illness Reason for Consultation: Dizziness, "SVT" Attending Physician: Trinity Pardo MD History of Present Illness This is an 83-year-old male with lung cancer for which he has had surgery and chemotherapy as well as stage III chronic kidney disease and hypertension. I have some records however he has been to [facility] so I do not think I have complete records. Records from [facility] notes COPD, GERD, and abdominal aortic aneurysm. He has what I believe is paroxysmal atrial fibrillation which was treated with diltiazem for rate control and Eliquis. It appears that his diagnosis was first made around 2019 when he had his lung surgery, he tells me he really was not aware of it at the time but subsequently does describe occasional episodes of palpitations and possibly lightheadedness and orthostasis at those times. I am not sure of his burden, he tells me that when he takes his blood pressure (which he does usually several times per day) that about a third of the time or so it will tell him that his heart rate is irregular. He does not recall the heart rate specifically at those times but thinks it was probably around 80 and does not recall it being fast. To evaluate his palpitations, lightheadedness and history of atrial fibrillation and external monitor was scheduled. A 28-day MCOT monitor was worn from November 05, 2021 through December 04, 2021. The rate ranged from 25 bpm to 140 bpm with an average of 74 bpm. The rhythm was sinus throughout with no atrial fibrillation. There were 983 PVCs (less than 1%) and 3084 premature atrial beats (less than 1%). There were 6 pauses in excess of 2 seconds, the longest being 3.3 seconds. These were not necessarily at night. 43 patient activated rhythm strips were available, symptoms included lightheadedness, shortness of breath, dizziness, heart racing and "took medication". At these times the rhythm was similar to his general rhythm, it is not clear that his symptoms were related to the rhythm. An echocardiogram done on December 08, 2021 was a suboptimal study but the left ventricular function was normal and there were no significant valvular abnormalities. With uncertainty as to his atrial fibrillation burden as well as the significance of his pauses we did implant a loop recorder on December 29, 2021. We did continue Eliquis. He had lightheadedness and minimal atrial fibrillation therefore his diltiazem was reduced to 120 mg daily. He continued to have episodes of lightheadedness on occasion, and he noted his blood pressure was as low as 90/54 with symptoms of lightheadedness. The diltiazem was therefore discontinued. He noted however that his heart rate was rapid following discontinuation of the diltiazem and he continued to have pauses approaching 5 seconds in duration. He did have brief periods of complete heart block. These were often at night but he did occasionally have episodes of lightheadedness but these may not correlate with rhythm disturbances. With classic findings of tachy-bradycardia syndrome although correlation with symptoms was difficult I did recommend a pacemaker to make management easier and to protect him from progressive bradycardia. He wanted to think about it but ultimately agreed and a dual-chamber pacemaker was implanted on July 05, 2023 and his loop recorder was removed. He had been doing relatively well symptomatically and on recent evaluation last month his pacemaker is working well with no documented arrhythmias. On January 03, 2024 he began to have lightheadedness, he did not check his heart rate or blood pressure initially, but on January 04, 2024 he did use a pulse oximeter and noted that his heart rate was over 100 at rest and when he got up and walked around was about 130 and he was having symptoms of lightheadedness. He therefore came to the emergency room. He notes that his lightheadedness resolved several hours after coming into the emergency room but was present here. He does not describe palpitations. His pacemaker was interrogated on arrival in the emergency room, that showed. In the emergency room his blood pressure was quite well-controlled initially (although he does have some low and some high numbers), his heart rate in the emergency room has been consistently below 100 and on telemetry since arrival he has had no significant arrhythmia. His electrocardiogram in the emergency room demonstrates sinus rhythm at 99 bpm and is normal. His hemoglobin is over 2 g lower than it has been historically, including on presentation when was 14.5 and 12.1 this morning. I was concerned this might be an error so I repeated the measurement later this morning and the hemoglobin was 12.0, he denies melena, bloody bowel movements or diarrhea. Allergies Allergy/AdvReac Type Severity Reaction Status Date / Time simvastatin [From Zocor] Allergy Unknown myalgia Verified 12/05/23 12:17 Home Medications Medication Instructions Recorded Confirmed Type atorvastatin 20 mg tablet 10 mg PO HS 11/05/21 01/05/24 History vitamins A,C,H-ioih-ebzslf 2,148 1 tab PO BID 02/16/23 01/05/24 History mcg-113 mg-45 mg-17.4 mg tablet (PreserVision AREDS) mometasone-formoterol HFA 100 2 puff inhalation BID #3 Inhalers 05/03/23 01/05/24 Rx mcg-5 mcg/actuation aerosol inhaler (Dulera) apixaban 5 mg tablet (Eliquis) 2.5 mg PO BID 05/30/23 01/05/24 History Oxygen Home #1 ea 10/03/23 12/06/23 Rx pantoprazole 40 mg tablet,delayed 40 mg PO BID #180 tabs 11/07/23 01/05/24 Rx release lisinopril 5 mg tablet 5 mg PO DAILY #90 tabs 12/12/23 01/05/24 Rx empagliflozin 25 mg tablet 12.5 mg (1/2 x 25 mg) PO DAILY #90 12/28/23 01/05/24 Rx tabs albuterol sulfate 90 mcg/actuation 0 puff inhalation Q6H PRN 01/05/24 01/05/24 History aerosol inhaler SOB/Wheezing ascorbic acid (vitamin C) 500 mg 250 mg PO DAILY 01/05/24 01/05/24 History tablet calcitriol 0.25 mcg capsule 0.25 mcg PO 3XWK CKD 01/05/24 01/05/24 History ciclopirox 8 % topical solution See Rx Instructions .Route .COMPLEX 01/05/24 01/05/24 History emollient 1 ea topical DAILY w/ 01/05/24 01/05/24 History catheterization ferrous sulfate 325 mg (65 mg 325 mg PO DAILY 01/05/24 01/05/24 History iron) tablet flecainide 100 mg tablet 100 mg PO BID 01/05/24 01/05/24 History lidocaine 5 % topical patch 1 patch topical DAILY 01/05/24 01/05/24 History metoprolol succinate 100 mg 0 mg PO DAILY 01/05/24 01/05/24 History tablet,extended release 24 hr Patient History Medical History Hx of tachycardia-bradycardia syndrome Secondary hyperparathyroidism HTN (hypertension) Hx of cancer of lung dx 2019, sx and chemo COPD (chronic obstructive pulmonary disease) daily and prn inh Atrial fibrillation hx- pacemaker placed 07/05/23 currently on eliquis; marni parker Anticoagulant long-term use Stage 3 chronic kidney disease follows w/ Dr Young Anemia due to chronic kidney disease receiving iron infusions 09/2023 Nocturnal hypoxia Chronic respiratory failure Esophageal dysphagia improved 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, tachy-jourdan syndrome-Dr Jimenez On home oxygen therapy 2 lpm via NC at night and prn during the day SOB (shortness of breath) on exertion History of COVID-19 03/2023 no hosp; resolved Neurogenic bladder Macular degeneration of right eye GERD (gastroesophageal reflux disease) Hyperlipidemia Self-catheterizes urinary bladder Glaucoma both eyes Surgical History Status post placement of cardiac pacemaker pacemaker placed 07/05/23 currently on eliquis; marni parker History of loop recorder removed 06/2023, [place] w/dr. jimenez Hx of hernia repair as a baby Hx of colonoscopy Hx of bilateral cataract extraction History of lobectomy of lung 2019, lt lower lobe due to cancer, also received chemo Hx of transurethral resection of prostate Family History Mother Lung cancer Diabetes Father Lung cancer Social History Smoking Status: Former smoker Tobacco Type: Cigarettes Age Started Using Tobacco: 20; Age Quit Using Tobacco: 67; packs per day: 2; Cigarettes Per Day: 2 packs a day.; Second Hand Exposure: No; Do You Dip or Chew Tobacco: No; Hx Alcohol Use: No Hx Substance Use: No Preferred Language: Tongan Communication Ability: Effective Servicenow Administrator Developer Required: No Beliefs That Will Affect Care: None marital status: Single Current Living Situation: Alone current occupational status: retired Feels Safe at Home: Yes Safety Concerns: Feels Safe At This Time Assistive Devices: Cane and Oxygen - at Night Review of Systems Review of Systems: All systems reviewed & are unremarkable except as noted in HPI & below Physical Exam Physical Exam: Constitutional: Alert, cooperative and in no distress. HEENT: Unremarkable Neck: No jugular venous distention, carotid pulses are normal and equal bilaterally without bruits. Pulmonary: Clear to auscultation bilaterally. Cardiac: Regular rhythm with no murmur, gallop or rub. Abdomen: Soft, nontender with normal bowel sounds. Extremities: No edema. Distal pulses intact. Neurologic: No focal findings. Gait is steady. Skin: The device site is well-healed without erythema, swelling or tenderness. No rash, ecchymoses or petechiae. Results & Data Vital Signs (Past 12 Hours) Vital Signs Temp Pulse Pulse Resp BP BP Pulse Ox 01/05/24 08:39 01/05/24 08:26 65 18 128/64 97 01/05/24 08:12 65 18 97 01/05/24 04:09 01/05/24 04:03 68 19 95 01/05/24 04:00 108/57 L 01/05/24 04:00 108/57 L 01/05/24 03:51 64 17 97 01/05/24 03:00 66 21 96 01/05/24 02:14 36.9 C 73 21 142/69 H 98 01/05/24 02:00 142/69 H 01/05/24 02:00 142/69 H 01/05/24 02:00 142/69 H 01/05/24 02:00 78 20 96 01/05/24 01:48 01/05/24 01:03 72 24 96 01/05/24 01:00 114/56 L 01/05/24 01:00 114/56 L 01/05/24 00:39 87 23 97 01/05/24 00:00 121/64 01/05/24 00:00 71 18 97 01/04/24 23:38 72 01/04/24 23:00 119/71 01/04/24 23:00 26 H 95 O2 Del Method O2 Flow Rate 01/05/24 08:39 Nasal Cannula 3 01/05/24 08:26 Nasal Cannula 3 01/05/24 08:12 01/05/24 04:09 Nasal Cannula 01/05/24 04:03 01/05/24 04:00 01/05/24 04:00 01/05/24 03:51 01/05/24 03:00 01/05/24 02:14 Nasal Cannula 3 01/05/24 02:00 01/05/24 02:00 01/05/24 02:00 01/05/24 02:00 Nasal Cannula 3 01/05/24 01:48 Nasal Cannula 01/05/24 01:03 01/05/24 01:00 01/05/24 01:00 01/05/24 00:39 01/05/24 00:00 01/05/24 00:00 Nasal Cannula 3 01/04/24 23:38 01/04/24 23:00 01/04/24 23:00 Laboratory Results Cardiac Enzymes 01/04/24 01/05/24 Range/Units 18:22 09:34 AST 14 (13-39) U/L Troponin I High Sens 8.7 10.7 (0-20) pg/ml Coagulation 01/04/24 Range/Units 18:22 PT 11.6 (9.0-12.0) Seconds CBC 01/04/24 01/05/24 Range/Units 18:22 04:34 WBC 9.91 7.14 (4.8-10.8) K/ul RBC 4.75 3.87 L (4.70-6.10) M/uL Hgb 14.5 12.1 L (14.0-18.0) g/dl Hct 44.1 36.2 L (42.0-52.0) % Plt Count 153 131 (130-400) K/uL Neut # (Auto) 6.81 H 4.07 (1.40-6.50) K/uL Lymph # (Auto) 1.78 1.92 (1.20-3.40) K/uL [place] # (Auto) 1.11 H 0.92 H (0.11-0.59) K/uL Eos # (Auto) 0.13 0.18 (0.00-0.50) K/uL Baso # (Auto) 0.04 0.03 (0.00-0.20) K/uL Comprehensive Metabolic Panel 01/04/24 01/05/24 Range/Units 18:22 04:34 Sodium 138 140 (136-145) mmol/L Potassium 4.5 4.2 (3.5-5.1) mmol/L Chloride 104 105 (98-107) mmol/L Carbon Dioxide 24 27 (21-32) mmol/L BUN 35 H 39 H (6-23) mg/dl Creatinine 3.14 H 2.92 H (0.6-1.4) mg/dl Glucose 130 H 95 (70-99(Fasting)) mg/dl Calcium 9.8 8.6 (8.6-10.3) mg/dl AST 14 (13-39) U/L ALT 7 (7-52) U/L Alkaline Phosphatase 89 (34-104) U/L Total Protein 7.4 (6.0-8.3) gm/dl Albumin 4.4 3.6 (3.4-5.0) gm/dl Intake and Output 01/04/24 01/05/24 01/05/24 22:59 06:59 14:59 Intake Total 50 / 50 1150 / 1150 Balance 50 / 50 1150 / 1150 Intake: IV 50 / 50 1150 / 1150 Magnesium Sulfate / D5w 1 gm In 100 / 100 100 ml @ 50 mls/hr IV ONE ONE Rx#:[id number] Sodium Chloride 0.9% 1,000 ml @ 1000 / 1000 80 mls/hr IV .[id number] [facility] Rx#: [id number] cefTRIAXone SODIUM 2,000 mg In 50 / 50 50 / 50 50 ml @ 100 mls/hr IV Q24H [facility] Rx#:[id number] Other: Weight 89.5 kg 89.5 kg Weight Measurement Method Chair Scale Built in [facility] Diagnostic Findings Telemetry: Predominantly sinus rhythm, some atrial pacing, no significant arrhythmia. Pacemaker interrogation: He has had some detected high heart rates recently, especially the day before presentation, however it looks more like sinus tachycardia with heart rates as high as 140 bpm. Of note he has been pacing a lot less over the last month than before, his heart rate has been climbing. PG Care Time/CCT Total # of Minutes Spent Total Time Spent with Patient: Total time spent is greater than 50% in coordination of care (as documented) at patient's floor/unit and/or counseling patient: Coding Level of Care Code 32881 INT INP/OBS CARE 3/75MIN Diagnoses Lightheadedness R42 Sinus tachycardia R00.0 Pacemaker Z95.0 Paroxysmal atrial fibrillation I48.0 Atrial fibrillation type: paroxysmal Anticoagulant long-term use Z79.01 CPT Codes Dual Lead Pacemaker System - 94555 ([id number]) (4) Atrial fibrillation Atrial fibrillation type: paroxysmal Qualified Code(s): I48.0 - Paroxysmal atrial fibrillation
[2024-01-05 12:10] LABS: Hematocrit (blood only) 35.6 % (42.0-52.0)
--- NOTE | 2024-01-05 12:21 | Electrocardiogram Report ---
Test Reason : Blood Pressure : */* mmHG Vent. Rate : 99 BPM Atrial Rate : 99 BPM P-R Int : 134 ms QRS Dur : 72 ms QT Int : 318 ms P-R-T Axes : 63 38 66 degrees QTcB Int : 408 ms Normal sinus rhythm Normal ECG When compared with ECG of 05-Jul-2023 15:38, No significant change Confirmed by Aaron Perea ([id number]) on 01/05/2024 12:21:09 PM Referred By: REFERRED SELF Confirmed By: Araon Perea
--- NOTE | 2024-01-05 12:40 | XCELERA ---
[id number] \\[email or web address]_[email or web address]\[id number]
[2024-01-05] MEDS: ATORVASTATIN 10 MG TAB PO SCH (20:56)
[2024-01-05] MEDS ORDERED: FLUTICASONE/VILANTEROL 100/25MCG 14 PUFFS/INHALER INH SCH (21:00)
--- NOTE | 2024-01-06 07:38 | XRay Report ---
XR chest 1V portable HISTORY: f/u pulmonary congestion COMPARISON: Chest 01/04/2024. FINDINGS: No pneumothorax. Chronic scarring at the left lung base and blunting the left costophrenic sulcus remains unchanged consistent with old postoperative change.. The left-sided dual-chamber pacem jolanta. The heart remains mildly enlarged. There are calcifications within the aortic knob. The right l jesusita is clear. There are old right-sided rib fractures. Old left clavicle fracture again noted. Mild c hronic interstitial thickening persists. IMPRESSION: No significant change compared to the prior study. No acute process. ACT 112: Negative or not required by law. Electronically signed by: Romeo Cooley M.D. 01/06/2024 7:36 AM
[2024-01-06 07:47] LABS: Basophils # (auto) 0.03 K/uL (0.00-0.20); Basophils % (auto) 0.5 %; Eosinophils # (auto) 0.22 K/uL (0.00-0.50); Eosinophils % (auto) 3.4 %; Hematocrit (blood only) 38.1 % (42.0-52.0); Hemoglobin 12.6 g/dl (14.0-18.0); Immature Granulocytes # (auto) 0.02 K/uL (0.01-0.20); Immature Granulocytes % (auto) 0.3 %; Lymphocytes % (auto) 26.1 %; Mean Corpuscular Hemoglobin 30.5 pg (25.0-34.0); Mean Corpuscular Hgb Conc 33.1 g/dL (32.0-36.0); Mean Corpuscular Volume 92.3 fL (80.0-100.0); Mean Platelet Volume 9.4 fL (9.4-12.4); Monocytes # (auto) 0.62 K/uL (0.11-0.59); Monocytes % (auto) 9.5 %; Neutrophils # (auto) 3.92 K/uL (1.40-6.50); Neutrophils % (auto) 60.2 %; Platelet Count 150 K/uL (130-400); RDW Coefficient of Variation 12.5 % (11.5-14.5); RDW Standard Deviation 42.5 fL (36.4-46.3); Red Blood Count 4.13 M/uL (4.70-6.10); White Blood Count 6.51 K/ul (4.8-10.8)
[2024-01-06 07:56] LABS: Albumin Globulin Ratio 1.3 (0.9-2); Albumin Level 3.6 gm/dl (3.4-5.0); Bilirubin,Total 0.6 mg/dl (0.2-1.0); Calcium 9.3 mg/dl (8.6-10.3); Creatinine Clr Calc Pharmacy 26.1 ml/min; Est GFR (African American) 28.3 ml/min; Est GFR (Non-African American) 24.4 ml/min; Globulin 2.7 gm/dl (2.5-4.0); Phosphorus 3.7 mg/dl (2.5-4.9); Potassium 5.1 mmol/L (3.5-5.1); Total Protein 6.3 gm/dl (6.0-8.3)
[2024-01-06 08:11] LABS: T4 Free Thyroxine 1.03 ng/dl (0.61-1.60)
--- NOTE | 2024-01-06 08:11 | Hospitalist Progress Note ---
Date of Service January 06, 2024 Assessment & Plan (1) Palpitations: Plan: Palpitations/nonsustained V. tach/SVT/tachybradycardia syndrome/pacemaker presents- Patient noted as one of his complaints, palpitations prior to arrival in the emergency department this evening. Interrogation of his Medtronic pacemaker this evening revealed at least 6 episodes of SVT since the most recent interrogation on 12/04. The most recent SVT was at 3:54 PM, and 5:41 PM. An episode of nonsustained V. tach was also noted on 12/29 The patient will be admitted to telemetry for serial cardiac enzymes, serial EKG's, cardiac rhythm monitoring and a 2-D echocardiogram with Dopplers. Continue apixaban and metoprolol succinate Hold lisinopril Consult cardiology CXR w/ pulmonary vascular congestion and has required supplemental O2 (reports 2L HS at baseline but using w/ going on errands past two days) NSS @ 80cc/hr on admission, will discontinue for now and push IVF/hold lisinopril to prevent volume overload ?related to hypotension given reports lightheadedness/dizziness in the afternoons (also reported fever 101F on tuesday w/ symptoms, no sputum production) ECHO ordered, pacemaker interrogation and cardiology consulted. ?if was taking his metoprolol as directed CHANGED metoprolol to 50mg BID as taking at home Lisinopril HELD, suspect STOPPING AT DC given CKD Trop peaked at 10.7, stable telemetry, no CP Repeat hgb unchanged and appears around baseline off IVF. No bleeding reported. Remains on Eliquis 01/05 IMPROVED No further palpitations, paced/NSR on telemetry. Labs reviewed: Cr down to 2.4 and lisinopril on hold/plans to stop and suspect patient was having some hypotension at home contributing to sx. patient reports clear yellow urine w/ st cath Urine cx pending, remains on Ceftriaxone. Noting cx not send prior to abx and noted/likely continue course in pt w/ st cath. ?add flomax -- could worsen hypotension Likely dc jardiance given urinary findings and ?contributing until f/u outpatient AND BSG on AC/HS checks NOT above 120 and could have been having some hypoglycemia at home BNP 301, LASIX PO X 1 to be provided given improvement in renal function Was on 3L NC this morning, CXR unchanged pulm congestion. Can plan for 2 step prior to dc B12 low normal @ 295 (prior 236 in 2022) and will start PO supplementation/continue at dc. B1 sent given prior hx drinking and likely pending at dc. Could start empiric thiamine replacement PT/OT consults pending DVT proph: eliquis BID, renal dosed Dispo: possible dc in AM. (2) SVT (supraventricular tachycardia): Plan: as above. has also identified episodes of afib ~4 hours at a time per most recent cardiology note remains on metoprolol as above ordered 100mg daily however note appears with patient taking 50mg BID? - changed to 50mg BID for AM 01/05 as already got dose 01/04 AM 100mg (did have some borderline BPs through day) Also restarted on PPI BID recently due to hx gastric ulcer and moderate/severe esophagitis in setting of Eliquis use. Has needed esophageal dilations in the past 1gm IV mag on admission provided for 1.9 to keep closer to 2 Stable telemetry, appreciate cards consult/recs Continue on telemetry (3) Stage 3b chronic kidney disease: Plan: Acute kidney injury superimposed on CKD- Creatinine 3.14, with base 2.04 Lisinopril placed on HOLD, NS @ 80cc/hr ordered but DC given CXR and able to take PO Ceftriaxone for suspected urinary tract infection as above. Patient reports clear yellow urine/straight caths at baseline. Continues to report clear yellow urine w/ caths Cr down to 2.4, IMPROVED. Would STOP lisinoprill for now stanton given borderline K and in 5.1 the past JARDIANCE also on hold and would continue to hold given possible UTI/prior nephrology notes Renal dose meds, avoid nephrotoxins BMP iN AM Cystitis- Pyuria noted, with CT scan suggesting acute cystitis. Did have temp 101F on Tuesday per patient, ?contributing. Has been afebrile/no leukocytosis but did have borderline WBC on admission w/ L shift Ceftriaxone IV, f/u urine cx noting did get abx prior (2 doses actually) Likely dc Jardiance as noted (4) Diabetes mellitus: Plan: Diabetes mellitus- Hold empagliflozin/Jardiance, patient is concerned that this medication may be causing his symptoms Glucose 130 on admission A1c 5.6 WOULD STOP JARDIANCE ABOVE AT DC POSSIBLE CAUSED HYPOGLYCEMIA POC on AC/HS checks borderline 90s/100s. NOT on any long acting agents and not using sliding scale at present Monitor for any hypoglycemia (5) Nonsustained ventricular tachycardia: (6) Tachy-jourdan syndrome: (7) Pacemaker: Plan: noted, interrogated by Dr Pearl- see note No issues on telemetry at present time (8) Acute kidney injury superimposed on chronic kidney disease: Plan: acute on chronic CKD 2nd to dehydration/lisinopril and jardiance suspected but also could have been having hypotension from BP meds as well (as well as hypoglycemia as noted) Tx as outlined and renal function w/ continued improvement OFF IVF w/ holding meds to Cr 2.4 and will continue to monitor (9) Esophageal dysphagia: Plan: tolerating diet remains on PPI BID, ?carafate if needed given prior ulcer but can monitor for now (10) BPH NOS w ur obs/LUTS: (11) Lung cancer: (12) Hypertension: (13) AAA (abdominal aortic aneurysm) without rupture: Plan Dispo: continued inpatient stay, follow up urine cx/PT/OT consults Hopeful dc 01/06 Admission and Anticipated Discharge Date Admission Date: January 04, 2024 Subjective Evaluated this morning, friend in bed. Feels well. Good appetite. No further palpitations. Remains on IV abx, urine cx pending. Reports clear yellow urine. Will discuss possible flomax for BPH w/ supervising provider but discussed dose cause risk for hypotension and BPs stable/improved. Metoprolol changed to BID, lisinopril on hold and discussed would NOT resume as well as holding off his Jardiance given UTI/pyuria. Now on room air, 93% and reports breathing improved but not quite to baseline and will plan for formal 2step prior to dc. Therapy evals pending. Discussed possible dc in AM. Questions/concerns addressed at this time. Physical Exam 2 Physical Exam: General: 83yo male sitting up in bed, NAD, reports feeling better, friend in room HEENT head atraumatic, normocephalic, mm moist, trachea midline Resp: diminished in the bases with bibasilar crackles, no wheezing, on room air CV: RRR, paced on telemetry/NSR, no significant m/r/g, trace pedal edema GI: +BS, soft, slight distension but NONTENDER, no guarding/rebound no davis (reports st cath) MSK/Neuro: nonfocal, answering questions appropriately Psych: alert/oriented x 3 but not the best historian at times but calm/cooperative and appears improved Results & Data Results & Data Vital Signs (Past 12 Hours) Vital Signs Temp Pulse Pulse Resp BP Pulse Ox O2 Del Method 01/06/24 07:38 36.5 C 65 21 126/79 96 Nasal Cannula 01/06/24 04:05 36.8 C 60 18 138/76 96 Nasal Cannula 01/05/24 23:30 36.9 C 62 18 112/60 98 Nasal Cannula 01/05/24 21:40 60 01/05/24 21:00 Nasal Cannula O2 Flow Rate 01/06/24 07:38 3 01/06/24 04:05 3.0 01/05/24 23:30 3.0 01/05/24 21:40 01/05/24 21:00 3 Laboratory Results 01/06/24 07:18 01/06/24 07:18 BNP 301 Mag 2.0 B12 295 Folate 12.5 T4 1.03 T3 3.08 B1 pending Diagnostic Findings Chest X-Ray 01/06/24 07:00 XR chest 1V portable HISTORY: f/u pulmonary congestion COMPARISON: Chest 01/04/2024. FINDINGS: No pneumothorax. Chronic scarring at the left lung base and blunting the left costophrenic sulcus remains unchanged consistent with old postoperative change.. The left-sided dual-chamber pacemaker. The heart remains mildly enlarged. There are calcifications within the aortic knob. The right lung is clear. There are old right-sided rib fractures. Old left clavicle fracture again noted. Mild chronic interstitial thickening persists. IMPRESSION: No significant change compared to the prior study. No acute process. ACT 112: Negative or not required by law. Electronically signed by: Romeo Cooley M.D. 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
[2024-01-06] MEDS: FUROSEMIDE 40 MG TAB PO ONE (09:44)
[2024-01-06] MEDS: CALCITRIOL 0.25 MCG CAPSULE PO SCH (09:45)
[2024-01-06] MEDS: METOPROLOL TARTRATE 50 MG TAB PO SCH (09:45)
[2024-01-06 10:15] LABS: Folate (Folic Acid),Ser orPlas 12.75 ng/ml (>5.38)
--- NOTE | 2024-01-06 12:59 | Electrocardiogram Report ---
Test Reason : Blood Pressure : */* mmHG Vent. Rate : 62 BPM Atrial Rate : 62 BPM P-R Int : 198 ms QRS Dur : 90 ms QT Int : 398 ms P-R-T Axes : 72 45 52 degrees QTcB Int : 403 ms Atrial-paced rhythm Abnormal ECG When compared with ECG of 04-Jan-2024 18:17, Electronic atrial pacemaker has replaced Sinus rhythm Vent. rate has decreased by 37 bpm Confirmed by Oz Pearl ([id number]) on 01/06/2024 12:59:26 PM Referred By: REFERRED SELF Confirmed By: Oz Pearl
--- NOTE | 2024-01-06 14:05 | Cardiology Progress Note ---
Date of Service January 06, 2024 Assessment & Plan (1) Lightheadedness: (2) Sinus tachycardia: (3) Pacemaker: (4) Atrial fibrillation: (5) Anticoagulant long-term use: Plan 1. Lightheadedness: He reports worsening lightheadedness for several days before presentation, he also noticed an elevated heart rate on his pulse oximeter. He has a long history of lightheadedness, we have never been quite sure of the cause but has not typically been associated with arrhythmias. Although he did have a high heart rate on this occasion I am not convinced that the heart rate caused the lightheadedness. 2. Sinus tachycardia: Although the rhythm was classified by the pacemaker as a supraventricular tachycardia, that is based on the heart rate and programming not the morphology. It appears to be sinus tachycardia. In addition he has had much less pacing over the last month and he has had a steadily increasing heart rate over the last month. According to the chart he is still taking his metoprolol succinate but I wonder if he was taking it. Beta-chelsea withdrawal would be consistent with this finding. Hypotension with a secondary tachycardia would also be consistent. Here in the hospital his heart rate has been quite well-controlled suggesting medical noncompliance. 3. Dual-chamber pacemaker: The pacemaker was interrogated, lead characteristics, battery performance and pacing and sensing thresholds were evaluated. Stored data was downloaded and evaluated. Battery and lead performance is stable. There were no significant arrhythmias identified since last visit other than what appears to be sinus tachycardia as noted above. 4. Atrial fibrillation: He did have atrial fibrillation identified with his loop recorder, he was not in it a large amount of time however some episodes were relatively prolonged (perhaps 4 hours). He remains on anticoagulation and AV rosita blocking medications but has had no significant atrial fibrillation since device implantation, only very brief episodes and none since last interrogation a month ago. 5. Anticoagulation: He is doing well on Eliquis at a reduced dose, with good documentation of atrial fibrillation I recommended he continue. However if a bleed is suspected there is very little risk to holding it since he has very little atrial fibrillation. Admission and Anticipated Discharge Date Admission Date: January 04, 2024 Physical Exam Physical Exam: Constitutional: Alert, cooperative and in no distress. HEENT: Unremarkable Neck: No jugular venous distention, carotid pulses are normal and equal bilaterally without bruits. Pulmonary: Clear to auscultation bilaterally. Cardiac: Regular rhythm with no murmur, gallop or rub. Abdomen: Soft, nontender with normal bowel sounds. Extremities: No edema. Distal pulses intact. Neurologic: No focal findings. Gait is steady. Skin: The device site is well-healed without erythema, swelling or tenderness. No rash, ecchymoses or petechiae. Results & Data Vital Signs (Past 12 Hours) Vital Signs Temp Pulse Resp BP Pulse Ox Pulse Ox Pulse Ox 01/06/24 11:16 36.7 C 71 20 130/83 93 01/06/24 10:47 93 98 01/06/24 08:11 01/06/24 07:38 36.5 C 65 21 126/79 96 01/06/24 04:05 36.8 C 60 18 138/76 96 Pulse Ox O2 Del Method O2 Flow Rate O2 Flow Rate O2 Flow Rate O2 Flow Rate 01/06/24 11:16 Room Air 01/06/24 10:47 90 0 3 0 01/06/24 08:11 Room Air 01/06/24 07:38 Nasal Cannula 3 01/06/24 04:05 Nasal Cannula 3.0 Laboratory Results Cardiac Enzymes 01/06/24 Range/Units 07:18 AST 13 (13-39) U/L B-Natriuretic Peptide 301 H (0-100) pg/ml Coagulation 01/06/24 Range/Units 07:18 B-Natriuretic Peptide 301 H (0-100) pg/ml CBC 01/06/24 Range/Units 07:18 WBC 6.51 (4.8-10.8) K/ul RBC 4.13 L (4.70-6.10) M/uL Hgb 12.6 L (14.0-18.0) g/dl Hct 38.1 L (42.0-52.0) % Plt Count 150 (130-400) K/uL Neut # (Auto) 3.92 (1.40-6.50) K/uL Lymph # (Auto) 1.70 (1.20-3.40) K/uL [place] # (Auto) 0.62 H (0.11-0.59) K/uL Eos # (Auto) 0.22 (0.00-0.50) K/uL Baso # (Auto) 0.03 (0.00-0.20) K/uL Comprehensive Metabolic Panel 01/06/24 Range/Units 07:18 Sodium 140 (136-145) mmol/L Potassium 5.1 D (3.5-5.1) mmol/L Chloride 106 (98-107) mmol/L Carbon Dioxide 29 (21-32) mmol/L BUN 36 H (6-23) mg/dl Creatinine 2.40 H D (0.6-1.4) mg/dl Glucose 110 H (70-99(Fasting)) mg/dl Calcium 9.3 (8.6-10.3) mg/dl AST 13 (13-39) U/L ALT 8 (7-52) U/L Alkaline Phosphatase 74 (34-104) U/L Total Protein 6.3 (6.0-8.3) gm/dl Albumin 3.6 (3.4-5.0) gm/dl Intake and Output 01/05/24 01/06/24 01/06/24 22:59 06:59 14:59 Intake Total 50 / 50 Balance 50 / 50 Intake: IV 50 / 50 cefTRIAXone SODIUM 2,000 mg In 50 / 50 50 ml @ 100 mls/hr IV Q24H [facility] Rx#:[id number] Other: Other Intake Source SIPS # Unmeasured Voids 1 Weight 88.7 kg Weight Measurement Method Standing Scale PG Care Time/CCT Total # of Minutes Spent Total Time Spent with Patient: Total time spent is greater than 50% in coordination of care (as documented) at patient's floor/unit and/or counseling patient: Coding Level of Care Code 53534 SUB INP/OBS CARE 2/35MIN Diagnoses Lightheadedness R42 Sinus tachycardia R00.0 Pacemaker Z95.0 Paroxysmal atrial fibrillation I48.0 Atrial fibrillation type: paroxysmal Anticoagulant long-term use Z79.01 (4) Atrial fibrillation Atrial fibrillation type: paroxysmal Qualified Code(s): I48.0 - Paroxysmal atrial fibrillation
[2024-01-06] MEDS: THIAMINE HCL 100 MG TAB PO SCH (20:16)
[2024-01-07 06:35] LABS: Basophils # (auto) 0.04 K/uL (0.00-0.20); Basophils % (auto) 0.6 %; Eosinophils % (auto) 4.4 %; Hematocrit (blood only) 36.6 % (42.0-52.0); Hemoglobin 12.7 g/dl (14.0-18.0); Immature Granulocytes # (auto) 0.03 K/uL (0.01-0.20); Immature Granulocytes % (auto) 0.4 %; Lymphocytes # (auto) 1.91 K/uL (1.20-3.40); Lymphocytes % (auto) 27.9 %; Mean Corpuscular Hemoglobin 31.4 pg (25.0-34.0); Mean Corpuscular Hgb Conc 34.7 g/dL (32.0-36.0); Mean Corpuscular Volume 90.6 fL (80.0-100.0); Mean Platelet Volume 9.3 fL (9.4-12.4); Monocytes # (auto) 0.78 K/uL (0.11-0.59); Monocytes % (auto) 11.4 %; Neutrophils # (auto) 3.78 K/uL (1.40-6.50); Neutrophils % (auto) 55.3 %; Platelet Count 165 K/uL (130-400); RDW Coefficient of Variation 12.2 % (11.5-14.5); RDW Standard Deviation 40.6 fL (36.4-46.3); Red Blood Count 4.04 M/uL (4.70-6.10); White Blood Count 6.84 K/ul (4.8-10.8)
[2024-01-07 07:01] LABS: Albumin Level 3.8 gm/dl (3.4-5.0); Calcium 9.2 mg/dl (8.6-10.3); Creatinine Clr Calc Pharmacy 24.5 ml/min; Est GFR (African American) 25.7 ml/min; Est GFR (Non-African American) 22.1 ml/min; Magnesium 1.7 mg/dl (1.7-2.4); Phosphorus 4.1 mg/dl (2.5-4.9); Potassium 4.6 mmol/L (3.5-5.1)
[2024-01-07] MEDS: CYANOCOBALAMIN (B-12) 500 MCG TABLET PO SCH (08:14)
--- NOTE | 2024-01-07 08:31 | Hospitalist Progress Note ---
Date of Service January 07, 2024 Assessment & Plan (1) Palpitations: Plan: Palpitations/nonsustained V. tach/SVT/tachybradycardia syndrome/pacemaker presents- Patient noted as one of his complaints, palpitations prior to arrival in the emergency department this evening. Interrogation of his Medtronic pacemaker this evening revealed at least 6 episodes of SVT since the most recent interrogation on 12/04. The most recent SVT was at 3:54 PM, and 5:41 PM. An episode of nonsustained V. tach was also noted on 12/29 The patient will be admitted to telemetry for serial cardiac enzymes, serial EKG's, cardiac rhythm monitoring and a 2-D echocardiogram with Dopplers. Continue apixaban and metoprolol succinate Hold lisinopril Consult cardiology CXR w/ pulmonary vascular congestion and has required supplemental O2 (reports 2L HS at baseline but using w/ going on errands past two days) NSS @ 80cc/hr on admission, will discontinue for now and push IVF/hold lisinopril to prevent volume overload ?related to hypotension given reports lightheadedness/dizziness in the afternoons (also reported fever 101F on tuesday w/ symptoms, no sputum production) ECHO ordered, pacemaker interrogation and cardiology consulted. ?if was taking his metoprolol as directed CHANGED metoprolol to 50mg BID as taking at home Lisinopril HELD, suspect STOPPING AT DC given CKD Trop peaked at 10.7, stable telemetry, no CP Repeat hgb unchanged and appears around baseline off IVF. No bleeding reported. Remains on Eliquis 01/05 IMPROVED No further palpitations, paced/NSR on telemetry. Labs reviewed: Cr down to 2.4 and lisinopril on hold/plans to stop and suspect patient was having some hypotension at home contributing to sx. patient reports clear yellow urine w/ st cath Urine cx pending, remains on Ceftriaxone. Noting cx not send prior to abx and noted/likely continue course in pt w/ st cath. ?add flomax -- could worsen hypotension Likely dc jardiance given urinary findings and ?contributing until f/u outpatient AND BSG on AC/HS checks NOT above 120 and could have been having some hypoglycemia at home BNP 301, LASIX PO X 1 to be provided given improvement in renal function Was on 3L NC this morning, CXR unchanged pulm congestion. Can plan for 2 step prior to dc B12 low normal @ 295 (prior 236 in 2022) and will start PO supplementation/continue at dc. B1 sent given prior hx drinking and likely pending at dc. Could start empiric thiamine replacement PT/OT consults pending DVT proph: eliquis BID, renal dosed Dispo: possible dc in AM. 01/06 - Urine cx prelim no growth, however notable did get 2 doses prior to cx being sent. Could empirically treat from prior cxs w/ klebsiella - Did get small dose lasix 20mg PO w/ elevated BNP/O2 use and titrated to room air but Cr 2.6 and will hold off further. Lisinopril stopped, K 5.1--> 4.6 - Mag 1.7, will order 2gm IV Hold off IVF for now, encourage push PO. Consdier discuss w/ nephro Avoid hypotension Metoprolol 50mg BID (2) SVT (supraventricular tachycardia): Plan: as above. has also identified episodes of afib ~4 hours at a time per most recent cardiology note remains on metoprolol as above ordered 100mg daily however note appears with patient taking 50mg BID? - changed to 50mg BID for AM 01/05 as already got dose 01/04 AM 100mg (did have some borderline BPs through day) Also restarted on PPI BID recently due to hx gastric ulcer and moderate/severe esophagitis in setting of Eliquis use. Has needed esophageal dilations in the past 1gm IV mag on admission provided for 1.9 to keep closer to 2 Stable telemetry, appreciate cards consult/recs Continue on telemetry (3) Stage 3b chronic kidney disease: Plan: Acute kidney injury superimposed on CKD- Creatinine 3.14, with base 2.04 Lisinopril placed on HOLD, NS @ 80cc/hr ordered but DC given CXR and able to take PO Ceftriaxone for suspected urinary tract infection as above. Patient reports clear yellow urine/straight caths at baseline. Continues to report clear yellow urine w/ caths Cr down to 2.4, IMPROVED. Would STOP lisinoprill for now stanton given borderline K and in 5.1 the past JARDIANCE also on hold and would continue to hold given possible UTI/prior nephrology notes Renal dose meds, avoid nephrotoxins BMP iN AM Cystitis- Pyuria noted, with CT scan suggesting acute cystitis. Did have temp 101F on Tuesday per patient, ?contributing. Has been afebrile/no leukocytosis but did have borderline WBC on admission w/ L shift Ceftriaxone IV, f/u urine cx noting did get abx prior (2 doses actually) Likely dc Jardiance as noted (4) Diabetes mellitus: Plan: Diabetes mellitus- Hold empagliflozin/Jardiance, patient is concerned that this medication may be causing his symptoms Glucose 130 on admission A1c 5.6 WOULD STOP JARDIANCE ABOVE AT DC POSSIBLE CAUSED HYPOGLYCEMIA POC on AC/HS checks borderline 90s/100s. NOT on any long acting agents and not using sliding scale at present Monitor for any hypoglycemia (5) Nonsustained ventricular tachycardia: (6) Tachy-jourdan syndrome: (7) Pacemaker: Plan: noted, interrogated by Dr Pearl- see note No issues on telemetry at present time (8) Acute kidney injury superimposed on chronic kidney disease: Plan: acute on chronic CKD 2nd to dehydration/lisinopril and jardiance suspected but also could have been having hypotension from BP meds as well (as well as hypoglycemia as noted) Tx as outlined and renal function w/ continued improvement OFF IVF w/ holding meds to Cr 2.4 and will continue to monitor (9) Esophageal dysphagia: Plan: tolerating diet remains on PPI BID, ?carafate if needed given prior ulcer but can monitor for now (10) BPH NOS w ur obs/LUTS: (11) Lung cancer: (12) Hypertension: (13) AAA (abdominal aortic aneurysm) without rupture: Plan Dispo: continued inpatient stay, follow up urine cx/PT/OT consults Hope[facility] dc 01/06 Admission and Anticipated Discharge Date Admission Date: January 04, 2024 Subjective Eval this moring, resting in bed. No fevers. Urine cx neg prelim but did get abx IV x 2 prior to cx and discussed can base on prior. Reports no issues w/ straight cath Reports breathing back to baseline, on room air. No chest pain/palpitations. Discussed Cr to 2.6, however wanting to go. Consult to Nephrology and if ok w/ them/further recs can consider dc this afternoon after 3pm and consider repeat labs on Tuesday. Empiric abx to be based on prior urine cx (but also covering for possible lungs as well). Will plan for 2 step, possible dc. Questions/concerns addressed at this time. Results & Data Results & Data Vital Signs (Past 12 Hours) Vital Signs Temp Pulse Pulse Resp BP Pulse Ox O2 Del Method 01/07/24 07:36 36.6 C 64 18 117/66 92 Room Air 01/07/24 07:28 63 01/07/24 03:12 36.4 C L 62 16 129/70 96 Room Air 01/06/24 23:00 60 01/06/24 22:42 36.8 C 80 16 119/71 94 Room Air 01/06/24 20:30 36.6 C 68 16 143/78 H 93 Room Air Laboratory Results 01/07/24 05:42 01/07/24 05:42 Mag 1.7 PG Care Time/CCT Total # of Minutes Spent Total Time Spent with Patient: Total time spent is greater than 50% in coordination of care (as documented) at patient's floor/unit and/or counseling patient: Coding Diagnoses Palpitations R00.2 SVT (supraventricular tachycardia) I47.10 Stage 3b chronic kidney disease N18.32 Diabetes mellitus E11.9 Nonsustained ventricular tachycardia I47.29 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
[2024-01-07] MEDS: MAGNESIUM SULFATE / D5W 1 GM/100 ML BAG IV SCH (09:10)
[2024-01-07 11:36] VITALS: PULSE 63; RESP 18; TEMP 97.5; O2SAT 91
--- NOTE | 2024-01-07 11:38 | Nephrology Consultation ---
Date of Consultation January 07, 2024 Assessment & Plan (1) Anemia due to chronic kidney disease: (2) Lightheadedness: (3) Stage 3b chronic kidney disease: (4) Hypertension: Plan 83-year-old gentleman with stage IIIb/IV CKD baseline creatinine around 2-2.4 mg/dl, admitted with lightheadedness, tachycardia and concern for UTI. Admission lab was notable for mild VIDYA, creatinine was 3.1 which slightly improved and staying around 2.4-2.6. Heart rate seems to be better controlled. Blood pressure stable. Started empirically on ceftriaxone but urine culture was negative for UTI. Overall otherwise doing well asymptomatic. -- Will continue to keep off of Jardiance although do not believe Jardiance was the cause for his symptoms. -- Okay to discharge, resume lisinopril 5 mg daily on discharge. Lab in 2 to 3 days after discharge -- Encouraged to keep well-hydrated -- Avoid all NSAIDs Follow-up in outpatient clinic as currently scheduled or sooner as needed. Thank you for allowing me to participate in your patient's care. It was a pleasure to see Ed. History of Present Illness Reason for Consultation: VIDYA, CKD Attending Physician: Trinity Pardo MD History of Present Illness Mr. Camilo Gracia is a 83-year-old gentleman with past medical history significant for stage IV CKD, history of obstructive uropathy admitted to the hospital with overall feeling poorly and concern for UTI. Nephrology consult requested for further management of VIDYA with history of advanced CKD. [facility] medical records are reviewed in detail during patient's visit. ED presented to ER on 01/04/2024 with feeling of lightheadedness, tachycardia and overall feeling poorly and he was concerned that he is having urinary tract infection as he was recently started on Jardiance and knows that it is a side effect with Jardiance. On admission his vital signs are otherwise stable. Lightheadedness eventually resolved. Creatinine was 3.1 on admission. Chest x- ray showed pulmonary vascular congestion. CT abdomen pelvis showed perinephric stranding and bladder debris, urinalysis and urine culture was negative for UTI. He was started empirically on ceftriaxone. Jardiance was discontinued when before coming to the hospital. Was on lisinopril 5 mg which has been on hold. Overall he started to feel better but because of pulmonary congestion and some complaint of shortness of breath he was given 1 dose of Lasix 20 mg. He reports significant decrease in urine output and increased frequency with just 1 dose of Lasix. Creatinine has been staying somewhat variable from 2.4-2.6. Electrolyte acceptable. Has stage IIIb/IV CKD, b/l cr around 2.0 to 2.4 mg/dl with microvascular disease, prior acute kidney injury with obstructive uropathy, cystatin based chemotherapy for lung cancer. Renal function has been progressively declining over the years, cr was 1.3 in September 2018, 1.4 in December and 2.0 on lab done on 06/05/2019. Has low grade proteinuria. Serological workup all negative except mildly positive ALFREDO but negative DS DNA. Urinalysis with low grade proteinuria but no hematuria or pyuria. Renal ultrasound on 05/30/2019 showed relatively small right kidney at 8.3 cm and left kidney 10.3 cm, no renal cyst, mass or hydronephrosis. h/o obstructive uropathy with enlarged prostate, s/p TURP but it did not work as expected and since then he has been self catheterizing 3 to 4 times a day. Denies chronic NSAID use. Ex smoker almost 50 years, quit in 2009. Drinks alcohol regularly. Denies f/h of CKD, ESRD. [place], retired, single, lives alone, has 2 daughters. Has hypertension for almost 5 years, well control at home with systolic around 120 is to 130s and diastolic in 70s, on lisinopril 5 mg and metoprolol 100 mg daily.. No history of diabetes, coronary artery disease or CHF. Has GERD, takes ranitidine as needed. Diagnosed with lung cancer in November 2018, had left lower lobe resection and chemotherapy with cisplatin from December to March. Follow-up CT imaging showed no recurrence, did not have any metastasis. Has underlying COPD, did not need home oxygen therapy. History of macular degeneration and plan to monitor closely without any intervention at this time. Overall he is feeling well this morning, denies any further episode of shortness of breath, denies chest pain or palpitation. No dysuria. Afebrile. Allergies Allergy/AdvReac Type Severity Reaction Status Date / Time simvastatin [From Zocor] Allergy Unknown myalgia Verified 12/05/23 12:17 Home Medications Medication Instructions Recorded Confirmed Type atorvastatin 20 mg tablet 10 mg PO HS 11/05/21 01/05/24 History vitamins A,C,X-yzlg-dmhbah 2,148 1 tab PO BID 02/16/23 01/05/24 History mcg-113 mg-45 mg-17.4 mg tablet (PreserVision AREDS) mometasone-formoterol HFA 100 2 puff inhalation BID #3 Inhalers 05/03/23 01/05/24 Rx mcg-5 mcg/actuation aerosol inhaler (Dulera) apixaban 5 mg tablet (Eliquis) 2.5 mg PO BID 05/30/23 01/05/24 History Oxygen Home #1 ea 10/03/23 12/06/23 Rx pantoprazole 40 mg tablet,delayed 40 mg PO BID #180 tabs 11/07/23 01/05/24 Rx release lisinopril 5 mg tablet 5 mg PO DAILY #90 tabs 12/12/23 01/05/24 Rx empagliflozin 25 mg tablet 12.5 mg (1/2 x 25 mg) PO DAILY #90 12/28/23 01/05/24 Rx tabs albuterol sulfate 90 mcg/actuation 0 puff inhalation Q6H PRN 01/05/24 01/05/24 History aerosol inhaler SOB/Wheezing ascorbic acid (vitamin C) 500 mg 250 mg PO DAILY 01/05/24 01/05/24 History tablet calcitriol 0.25 mcg capsule 0.25 mcg PO 3XWK CKD 01/05/24 01/05/24 History ciclopirox 8 % topical solution See Rx Instructions .Route .COMPLEX 01/05/24 01/05/24 History emollient 1 ea topical DAILY w/ 01/05/24 01/05/24 History catheterization ferrous sulfate 325 mg (65 mg 325 mg PO DAILY 01/05/24 01/05/24 History iron) tablet flecainide 100 mg tablet 100 mg PO BID 01/05/24 01/05/24 History lidocaine 5 % topical patch 1 patch topical DAILY 01/05/24 01/05/24 History metoprolol succinate 100 mg 0 mg PO DAILY 01/05/24 01/05/24 History tablet,extended release 24 hr Patient History Medical History Hx of tachycardia-bradycardia syndrome Secondary hyperparathyroidism HTN (hypertension) Hx of cancer of lung dx 2019, sx and chemo COPD (chronic obstructive pulmonary disease) daily and prn inh Atrial fibrillation hx- pacemaker placed 07/05/23 currently on eliquis; marni parker Anticoagulant long-term use Stage 3 chronic kidney disease follows w/ Dr Young Anemia due to chronic kidney disease receiving iron infusions 09/2023 Nocturnal hypoxia Chronic respiratory failure Esophageal dysphagia improved 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, tachy-jourdan syndrome-Dr Jimenez On home oxygen therapy 2 lpm via NC at night and prn during the day SOB (shortness of breath) on exertion History of COVID-03/2023 no hosp; resolved Neurogenic bladder Macular degeneration of right eye GERD (gastroesophageal reflux disease) Hyperlipidemia Self-catheterizes urinary bladder Glaucoma both eyes Surgical History Status post placement of cardiac pacemaker pacemaker placed 07/05/23 currently on eliquis; marni parker History of loop recorder removed 06/2023, mn w/dr. jimenez Hx of hernia repair as a baby Hx of colonoscopy Hx of bilateral cataract extraction History of lobectomy of lung 2019, lt lower lobe due to cancer, also received chemo Hx of transurethral resection of prostate Family History Mother Lung cancer Diabetes Father Lung cancer Social History Smoking Status: Former smoker Tobacco Type: Cigarettes Age Started Using Tobacco: 20; Age Quit Using Tobacco: 67; packs per day: 2; Cigarettes Per Day: 2 packs a day.; Second Hand Exposure: No; Do You Dip or Chew Tobacco: No; Hx Alcohol Use: No Hx Substance Use: No Preferred Language: [place] Communication Ability: Effective Ingot Stripper Required: No Beliefs That Will Affect Care: None marital status: Single Current Living Situation: Alone current occupational status: retired Feels Safe at Home: Yes Assistive Devices: Cane and Oxygen - at Night Review of Systems Review of Systems: All systems reviewed & are unremarkable except as noted in HPI & below Physical Exam Constitutional: WD/WN, vitals as above no acute distress Eyes: + anicteric sclerae Neck: normal visual inspection Respiratory: Auscultation: lungs clear to auscultation bilaterally Cardiovascular: Heart Sounds: normal S1 and normal S2 Extremities: no edema Gastrointestinal (Abdomen): Inspection/Auscultation: abdomen normal to inspection Musculoskeletal: Extremities: extremities normal to inspection Skin: no rashes, warm and dry Neurologic: no focal motor deficits Psychiatric: Orientation: alert and oriented x 3 Affect: euthymic affect Results & Data Vital Signs (Past 12 Hours) Vital Signs Temp Pulse Pulse Pulse Pulse Pulse Resp 01/07/24 11:33 36.4 C L 63 18 01/07/24 09:53 95 H 92 H 60 01/07/24 07:36 36.6 C 64 18 01/07/24 07:28 63 01/07/24 03:12 36.4 C L 62 16 Resp Resp Resp BP Pulse Ox Pulse Ox Pulse Ox 01/07/24 11:33 107/61 91 01/07/24 09:53 20 18 16 92 91 01/07/24 07:36 117/66 92 01/07/24 07:28 01/07/24 03:12 129/70 96 Pulse Ox O2 Del Method 01/07/24 11:33 Room Air 01/07/24 09:53 94 01/07/24 07:36 Room Air 01/07/24 07:28 01/07/24 03:12 Room Air PG Care Time/CCT Total # of Minutes Spent Total Time Spent with Patient: Total time spent is greater than 50% in coordination of care (as documented) at patient's floor/unit and/or counseling patient: Coding Level of Care Code 87202 OFFICE CONSULT LVL M Diagnoses Anemia due to chronic kidney disease N18.9; D63.1 Lightheadedness R42 Stage 3b chronic kidney disease N18.32 Primary hypertension I10 Hypertension type: primary hypertension (4) Hypertension Hypertension type: primary hypertension Qualified Code(s): I10 - Essential (primary) hypertension
--- NOTE | 2024-01-07 11:57 | Discharge Summary ---
Discharge Summary Date of Service January 07, 2024 Principal Dx & Hospital Course #1 = Principal Diagnosis (1) Palpitations: 83yo male presented with concerns of palpitations experienced earlier in the evening with dizziness, shortness of breath and generalized weakness with concerns recent start SGLT2 inhibitor contributing to symptoms. Reported palpitations prior to arrival of ER with interrogation w/ 6 episodes of SVT since 12/04 and admitted for telemetry monitoring/cardiac enzymes and evaluation with cardiology consult/ECHO. Nonsustained Vtach noted 12/29 Continued on metoprolol succinate 100mg daily, Eliquis Cardiology consulted -- see note, Dr Pearl, suspected not taking his medications, less episodes of arrhythmia on interrogation and no further eval/rec compliance. ECHO unchanged and troponin max 10.7 Patient reported takes metoprolol 50mg BID and was taking lisinopril with his CKD and concerns with hypotension at baseline and recent start new medication SGLT2 w. Farxiga on 12/05 BP was borderline 100/64 on arrival Given A1c only 5.6 on check could have possibly been having episodes of hypoglycemia as well as hypotension at home that could have contributed to symptoms and suspect VIDYA on admission from hypotension/hypoperfusion from such prior to admission. BSGs NEVER HIGHER than 147 in our system despite good reported PO intake while here. Continued to hold lisinopri given acute on chronic CKD w/ Cr 3.14 on admission. Also notable has had issues with hyperkalemia in the past and likely better to avoid for now. Cr improved to 2.4 but worsened to 2.6 following Lasix PO x 1 dose and titrated to room and but continued report making good urine/yellow in color and planned for discontinue lisinopril/fargixa at discharge and have repeat BMP in [address] Young who is patient's software quality assurance analyst and saw while inpatient Did give 1gm mag and stable on repeat but additional prior to dc and stable telemetry/wanting to go home and reported breathing back to baseline. Not hypoxic and 2step prior to discharge without needs/continue O2 HS. Remained NSR on telemetry w/ 50mg BID metoprolol and continue split dosing to prevent hypotension but does need for rate control UA w/ pyuria and patient did give 4 doses Ceftriaxone IV for possible UTI but not continued at dc as urine cx negative but was collected after abx however denied sx/no pain and should be covered as discussed with supervising provider/rec to not continue at discharge but patient to monitor for any issues. Does st cath at baseline 2nd neurogenic bladder Initially cards reported concern hgb12 from 14 on admission however reviewed chart/prior labs and suspect patient was dehydrated on exam w/ hgb 14 and Cr to 3s which was stable on repeat/no bleeding and has stayed stable off IVF 12.7 Dehydration could have been brought on by decreased PO intake/farxiga and patient also w/ A1c only 5.6 and could have had some episode of hypoglycemia contributing at home as well. In either case, farxiga and lisinopril discontinued at discharge and repeat BMP in 3 days provided. Outpatient follow up cardiology, nephrology, primary care Of note, did check B12 which was borderline and PO replacement started/continued. Does appear has hx alcohol use and did send for B1 level but placed on low dose empiric thiamine and B1 level to be followed up outpatient with primary care and can increase if low. (2) SVT (supraventricular tachycardia): Hx of, also w/ episodes of afib as above Continued metoprolol, tx as outlined above Did recently restart/continue PPI BID for gastric ulcer/mod-severe esophagitis in setting of eliquis and has needed dilatations in the past. No issues w/ diet at this time but did give additional mag to keep closer to 2 w/ no issues and provided IV prior to dc and continued PO at discharge to keep stores replete No episodes on telemetry (3) Stage 3b chronic kidney disease: Acute kidney injury superimposed on CKD w/ Cr 3.14 with baseline closer to 2/2.1-2.[address] Young Lisinopril placed on HOLD on admission, given IVF but discontinued given able to take PO and encouraged PO. Cr improved to 2.4 and discussed/given low dose lasix x 1 but no further as Cr bump to 2.6 and appearing euvolemic at present As above, lisinopril and SGLT2 inhibitor discontinued at discharge Repeat BMP in 3 days per nephrology/consulted Patient reported clear yellow urine/no issues prior to dc. (4) Diabetes mellitus: Diabetes mellitus- held home meds on admission given above Glu 130 on admission, A1c only 5.6 Discontinued SGLT2 inhibitor as above, possible causing hypoglycemia and rec checking BSGs more frequently at home (5) Nonsustained ventricular tachycardia: (6) Tachy-jourdan syndrome: (7) Pacemaker: noted, interrogated by Dr Pearl- see note No issues on telemetry (8) Acute kidney injury superimposed on chronic kidney disease: As above, improved but now 2.6 and holding meds at dc w/ outpatient labs/follow up as wanting to go home/appearing stable (9) Esophageal dysphagia: tolerating diet without issue and remains on PPI BID (10) BPH NOS w ur obs/LUTS: (11) Lung cancer: (12) Hypertension: (13) AAA (abdominal aortic aneurysm) without rupture: Plan Discharged home 01/06 Notes For Next Care Provider Follow up B1 level, repeat BMP in 3 days to ensure renal function stable outpatient off lisinopril/SGLT2. Did not change metoprolol on med list but is taking 50mg BID as instructed (per patient) Recommend patient check blood sugars at home more frequent Medication Changes From Visit DC lisinopril DC SGLT2 +Magnesium replacement given PPI use B12 supplementation, empiric thiamine 100mg BID Admission HPI Per Admitting Provider The patient is a 83-year-old male with a past medical history including esophageal dysphagia, pacemaker, tachybradycardia syndrome, atrial fibrillation, COPD, lung cancer, hypertension, chronic respiratory failure with hypoxia, secondary hyperparathyroidism, history of VIDYA on CKD, vitamin D deficiency, stage IIIb CKD and BPH with LUTS associated with neurogenic bladder. The patient presents to the emergency department with symptoms as noted above. Admission Exam Per Admitting Provider The patient is awake, alert and oriented 3, well developed and well nourished, normocephalic and atraumatic, lying in bed and in no acute distress. HEENT--PERRL, EOMI, mucous membranes and oropharynx dry. Neck--supple. No JVD. No bruits. Thyroid normal, trachea midline, no adenopathy. Heart--normal S1 and S2. Occasional PVCs. No murmurs, rubs or gallops. Lungs--clear bilaterally, no respiratory distress, no accessory muscle use. Abdomen--normal bowel sounds and soft. Nontender. Nondistended, no hernias or masses, no organomegaly. Extremities--no cyanosis or clubbing. No edema. Dermatologic--skin is mildly dry Neurologic--cranial nerves II through XII grossly intact. Rheumatologic--normal range of motion. Psychiatric--normal affect. Discharge Exam General: 83yo male sitting up in bed, NAD, reports feeling better/wanting to go home HEENT head atraumatic, normocephalic, mm moist, trachea midline Resp: diminished in the bases with bibasilar crackles, no wheezing/rales, on room air CV: RRR, paced on telemetry/NSR, no significant m/r/g, trace pedal edema GI: +BS, soft, less distension/nontender, no guarding/rebound no davis (reports st cath) MSK/Neuro: nonfocal, answering questions appropriately Psych: alert/oriented x 3 but not the best historian at times but calm/cooperative and appears improved Discharge Plan Discharge Items Patient Disposition: Home - Self-Care Reason For Visit: UTI, PALPITATIONS Discharge Diagnosis: You have been hospitalized for an acute medical problem. During your stay at [facility], we have made an effort to correct the problem that brought you to the hospital while keeping you as comfortable as possible. Medications were used to bring your condition under control and your discharge instructions will include directions for any medications you should take after leaving the hospital. Please make sure you see your Primary Care Provider as part of your follow up plan. Goals: You have been hospitalized for an acute medical problem. During your stay at [facility], we have made an effort to correct the problem that brought you to the hospital while keeping you as comfortable as possible. Medications were used to bring your condition under control and your discharge instructions will include directions for any medications you should take after leaving the hospital. Please make sure you see your Primary Care Provider as part of your follow up plan. Activity: Resume your previous activity Non-emergency contact: Primary Care Provider and [employer] Front Desk Clerk Call non-emergency contact if: you have any medication questions, your symptoms worsen, your pain is concerning for you and you have a fever Follow-up/Referrals: Oz Pearl MD [Physician] - Mir Francis NP-C [Primary Care Provider] - Diet: Carb Consistent or DM2 and Heart Healthy Ambulatory Orders: Basic Metabolic Panel (Routine) Timeframe: 3 Days Location: Determined by Patient Ordered By: Ani Loving Addtl Attending Provider Instructions: You have been hospitalized for lightheaded/dizziness. Cardiology was consulted and pacemaker interrogated and arrhythmia burden was not as high as in the past. I suspect some of the symptoms were from low blood pressure and continued use of lisinopril that led to elevated kidney numbers. We did suspect possible urinary tract infection but you received 4 doses of IV antibiotics and culture is without growth and we will avoid further antibiotics at discharge. Your lisinopril and Jardiance have been STOPPED at discharge and per Dr Young, we are placing orders for repeat labs for 3 days to ensure coming back to your baseline. Your blood sugars have been under EXCELLENT control while in the hospital and your A1c is NOT elevated and you may have been having some low blood sugars at home and recommend being OFF of this at least for the meantime until discussed in follow up. Stay well hydrated at discharge and continue your other medications. We checked your oxygen with a walking test and you DO NOT need oxygen with ambulation. I have also sent in for magnesium to take to keep your stores repleted to prevent any lows that can worsen arrhythmia. We did send empiric thiamine and B1 level is pending. Sometimes alcohol use can cause these to be low and you can continue these while this lab is pending and have been given them in the hospital and your B12 was a little on the low side and we started this vitamin. We are going to continue supplements for both at discharge. Please follow up with primary care as well as cardiology at discharge to monitor your progress. Please return to the ER with any fevers/chills, chest pain, shortness of breath, repeat symptoms or for any other symptoms concerning for you. Take care! Pending Studies at Discharge: Yes Studies:: b1 level pending (send out test) Stand-Alone Forms: [facility], Smoking Cessation Medications and DC Order Prescriptions: New cyanocobalamin (vitamin B-12) 500 mcg Tablet 500 mcg PO QAM Qty: 30 0RF thiamine HCl (vitamin B1) 100 mg Tablet 100 mg PO BID Qty: 60 0RF magnesium oxide 400 mg magnesium capsule 400 mg PO DAILY Qty: 30 0RF Continued Dulera 100-5 mcg/actuation HFA aerosol inhaler 2 puff inhalation BID Qty: 3 4RF atorvastatin 20 mg tablet 10 mg PO HS Eliquis 5 mg tablet 2.5 mg PO BID pantoprazole 40 mg tablet,delayed release (DR/EC) 40 mg PO BID Qty: 180 3RF PreserVision AREDS 2,148 mcg-113 mg-45 mg-17.4mg Tablet 1 tab PO BID Rx Instructions: administer with AM and PM meals metoprolol succinate 100 mg Tablet Extended Release 24 Hr 0 mg PO DAILY Rx Instructions: Med list from [facility] shows this as active/suspended. Original Directions: 100mg by mouth daily ciclopirox 8 % Solution See Rx Instructions .ROUTE .COMPLEX Rx Instructions: Apply a small amount to skin every day, apply topically over affected toenail and surrounding skin. Apply daily over previous coat. After 7 days, remove with rubbing alcohol and continue cycle for tinea unguium. ascorbic acid (vitamin C) 500 mg Tablet 250 mg PO DAILY ferrous sulfate 325 mg (65 mg iron) Tablet 325 mg PO DAILY lidocaine 5 % Adhesive Patch,Medicated 1 patch TOPICAL DAILY Rx Instructions: leave on most painful area for up to 12 hrs albuterol sulfate 90 mcg/actuation Hfa Aerosol Inhaler 0 puff INHALATION Q6H PRN (Reason: SOB/Wheezing) Rx Instructions: Per med list from [facility], this medication is currently on hold. Original Directions: 2 puffs q6h PRN calcitriol 0.25 mcg Capsule 0.25 mcg PO 3XWK emollient Lubricant 1 ea TOPICAL DAILY Discontinued lisinopril 5 mg tablet 5 mg PO DAILY Qty: 90 3RF Rx Instructions: fax to [place] Jardiance 25 mg tablet 12.5 mg PO DAILY Qty: 90 3RF Rx Instructions: to be faxed [employer] (DME) Oxygen Home Liters Per Minute See Rx Instructions .Route Qty: 1 0RF Rx Instructions: Oxygen at 2lpm via NC with activity and sleep ROMAN 99 Discharge Orders: Discharge Order (Routine); Ordered 01/07/24 Ordered By: Ani Loving Admission Data Admit Date/Time: 01/04/24 23:58 Attending Provider: Trinity Pardo Admit Provider: Art Shearer Primary Care Provider: Mir Francis Other Providers: Art Shearer; Howard Laws; [facility]; Tia Young Other Interventions: Discharge Summary Assessment (RN) Last Done: 01/07/24 12:13 Hospital Stay Data Consultations 01/04/24 22:49 ED Decision to Admit Stat 01/05/24 02:20 Consult Cardiology Routine 01/07/24 09:04 Consult Nephrology Routine Diagnostic Imagining Performed Chest X-Ray 01/04/24 18:00 XR chest 1V portable HISTORY: 83 years-old Male SOB acute shortness of breath COMPARISON: 07/06/2023 TECHNIQUE: AP view of the chest FINDINGS: Cardiac silhouette is enlarged. The patient is mildly rotated towards the left. Chronic mid left clavicular fracture deformity with chronic right-sided rib fractures. There is no pneumothorax or large pleural effusion. Pulmonary emphysema. There is chronic left lung volume loss with left costophrenic angle blunting and left basilar scarring. Chronic interstitial coarsening of the lungs. Pulmonary vascular congestion. IMPRESSION: 1. Cardiomegaly with pulmonary vascular congestion. 2. Chronic changes of the left hemithorax. 3. Pulmonary emphysema. ACT 112: Negative or not required by law. The above report was generated using voice recognition software. It may contain grammatical, syntax or spelling errors. Electronically signed by: Ramón Casey M.D. 01/05/2024 6:44 AM Abdomen/Pelvis CT 01/04/24 19:57 Exam(s): CT ABDOMEN + PELVIS Without Contrast EXAM: CT Abdomen and Pelvis Without Intravenous Contrast CLINICAL HISTORY: Reason for exam: vidya difficulty urinating. TECHNIQUE: Axial computed tomography images of the abdomen and pelvis without intravenous contrast. CTDI is 26.33 mGy and DLP is 1258.19 mGy-cm. Automated exposure control was utilized for the study. A dose lowering technique was utilized adhering to the principles of ALARA. COMPARISON: CT abdomen/pelvis: 08/05/2021 FINDINGS: Image quality is hampered by motion artifact. Lack of IV contrast limits evaluation of soft tissues/vascular structures. Lung bases: Pacemaker intracardiac electrode leads. Likely prior left lower lung lobectomy with a reduced left lung volume and with persistent mediastinal/cardiac shift to the left. Hyperinflated lungs/pulmonary emphysema. Demonstrates small/trace left pleural effusion with interval increased focal area of airspace disease/consolidation and surrounding interstitial infiltrates posteriorly/medially in the left lower lobe. ABDOMEN: Analysis of abdominal/pelvic viscera and vascular structures is limited in absence of IV contrast. Liver: Unremarkable. Gallbladder and bile ducts: Unremarkable. No calcified stones. No ductal dilation. Pancreas: Mild diffuse fatty infiltrate. No ductal dilation. Spleen: Unremarkable. No splenomegaly. Adrenals: Unremarkable. No mass. Kidneys and ureters: Mild/moderately atrophic left kidney. Mildly atrophic right kidney. Bilateral significant perinephric fat stranding. No obvious urinary tract calculi. No hydronephrosis. Stomach and bowel: A small hiatal hernia. Normal caliber small intestine. Increased stool/gas in the ascending and transverse colon. No mucosal thickening. PELVIS: Appendix: Normal appendix. Bladder: A decompressed/reduced capacity bladder is seen with significant mucosal/wall thickening and with stranding of perivesical fat, consistent with an acute cystitis probably bacterial cystitis (series 3 image 285). Reproductive: Centrally a small focal prostate calcification. ABDOMEN and PELVIS: Intraperitoneal space: Increased mesenteric fat/lipomatosis. No free air. No significant fluid collection. Bones/joints: No acute fracture. No dislocation. Multilevel moderate degenerative disc/endplate spondylosis. Lumbar mild levoscoliosis. Soft tissues: Rectus abdominis diastasis. A small/moderate size fat- containing and right inguinal hernias. Vasculature: Diffuse atherosclerotic calcified plaque formation of the aortoiliac vasculature and branch vessels. There is a 6.2 cm long distal aortic 5.3 x 4.9 cm fusiform aneurysmal dilatation (series 300 image 58, series 3 image 169). Lymph nodes: No enlarged lymph nodes.. IMPRESSION: Lung base: Prior left lower lobectomy with reduced left lung volume and with persistent mediastinal/cardiac shift to the left. Interval increased focal area of airspace disease/consolidation posteromedially in the left lower lobe with trace/small left pleural effusion. Pulmonary emphysema. Bilateral significant perinephric fat stranding. No urinary tract calculi identified. No hydronephrosis. Mild/moderately atrophic kidneys. There is a decompressed/reduced capacity urinary bladder with significant mucosal thickening and with stranding of the prevesical fat demonstrated, consistent with an acute cystitis, probably bacterial cystitis. Clinical correlation recommended. Atherosclerotic disease of the aortoiliac vasculature and branch vessels. A 6.2 cm long fusiform 5.3 cm aneurysmal dilatation of the distal abdominal aorta. Additional chronic findings as described above. Electronically signed by: Alex Jenkins MD, DABR 01/04/24 22:42 PM Chest X-Ray 01/06/24 07:00 XR chest 1V portable HISTORY: f/u pulmonary congestion COMPARISON: Chest 01/04/2024. FINDINGS: No pneumothorax. Chronic scarring at the left lung base and blunting the left costophrenic sulcus remains unchanged consistent with old postoperative change.. The left-sided dual-chamber pacemaker. The heart remains mildly enlarged. There are calcifications within the aortic knob. The right lung is clear. There are old right-sided rib fractures. Old left clavicle fracture again noted. Mild chronic interstitial thickening persists. IMPRESSION: No significant change compared to the prior study. No acute process. ACT 112: Negative or not required by law. Electronically signed by: Romeo Cooley M.D. 01/06/2024 7:36 AM Pending Results Patient Have Any Pending Studies at Discharge: Yes Discharge Instructions Given to Patient (Per Discharging Provider) You have been hospitalized for lightheaded/dizziness. Cardiology was consulted and pacemaker interrogated and arrhythmia burden was not as high as in the past. I suspect some of the symptoms were from low blood pressure and continued use of lisinopril that led to elevated kidney numbers. We did suspect possible urinary tract infection but you received 4 doses of IV antibiotics and culture is without growth and we will avoid further antibiotics at discharge. Your lisinopril and Jardiance have been STOPPED at discharge and per Dr Young, we are placing orders for repeat labs for 3 days to ensure coming back to your baseline. Your blood sugars have been under EXCELLENT control while in the hospital and your A1c is NOT elevated and you may have been having some low blood sugars at home and recommend being OFF of this at least for the meantime until discussed in follow up. Stay well hydrated at discharge and continue your other medications. We checked your oxygen with a walking test and you DO NOT need oxygen with ambulation. I have also sent in for magnesium to take to keep your stores repleted to prevent any lows that can worsen arrhythmia. We did send empiric thiamine and B1 level is pending. Sometimes alcohol use can cause these to be low and you can continue these while this lab is pending and have been given them in the hospital and your B12 was a little on the low side and we started this vitamin. We are going to continue supplements for both at discharge. Please follow up with primary care as well as cardiology at discharge to monitor your progress. Please return to the ER with any fevers/chills, chest pain, shortness of breath, repeat symptoms or for any other symptoms concerning for you. Take care! Total Time Total Time Spent Total Time Spent (In Minutes): 45 Coding Level of Care Code 52746 INP/OBS DISCH >30 MIN Diagnoses Palpitations R00.2 SVT (supraventricular tachycardia) I47.10 Stage 3b chronic kidney disease N18.32 Diabetes mellitus E11.9 Nonsustained ventricular tachycardia I47.29 Tachy-jourdan syndrome I49.5 Pacemaker Z95.0 Acute kidney injury superimposed on chronic kidney disease N17.9; N18.9 Esophageal dysphagia R13.19 BPH NOS w ur obs/LUTS N40.1 Lung cancer C34.90 Primary hypertension I10 Hypertension type: primary hypertension AAA (abdominal aortic aneurysm) without rupture I71.40
[2024-01-07 12:14] VITALS: BP 116/70
== END 2024-01-07 13:29 | disposition home or self-care (01) | DRG 309 ==
LOC: ED 17:44 → SUATTDRO 23:58 → EDINP 23:58 → 4W 01-05 01:48

== ENCOUNTER 2024-04-24 10:42 | Inpatient (IN) ==
[2024-04-24 11:38] LABS: Basophils # (auto) 0.09 K/uL (0.00-0.20); Basophils % (auto) 0.5 %; Eosinophils # (auto) 0.13 K/uL (0.00-0.50); Eosinophils % (auto) 0.7 %; Hemoglobin 15.7 g/dl (14.0-18.0); Immature Granulocytes # (auto) 0.09 K/uL (0.01-0.20); Immature Granulocytes % (auto) 0.5 %; Lymphocytes # (auto) 2.36 K/uL (1.20-3.40); Lymphocytes % (auto) 13.5 %; Mean Corpuscular Hemoglobin 30.4 pg (25.0-34.0); Mean Corpuscular Hgb Conc 33.4 g/dL (32.0-36.0); Mean Corpuscular Volume 90.9 fL (80.0-100.0); Mean Platelet Volume 9.3 fL (9.4-12.4); Monocytes # (auto) 1.24 K/uL (0.11-0.59); Monocytes % (auto) 7.1 %; Neutrophils # (auto) 13.55 K/uL (1.40-6.50); Neutrophils % (auto) 77.7 %; Platelet Count 157 K/uL (130-400); RDW Coefficient of Variation 12.6 % (11.5-14.5); RDW Standard Deviation 41.7 fL (36.4-46.3); Red Blood Count 5.17 M/uL (4.70-6.10); White Blood Count 17.46 K/ul (4.8-10.8)
[2024-04-24 11:48] LABS: Alanine Aminotransferase 12 U/L (7-52); Albumin Globulin Ratio 1.5 (0.9-2); Albumin Level 4.6 gm/dl (3.4-5.0); Alkaline Phosphatase 122 U/L (34-104); Anion Gap 9 (3-11); Aspartate Aminotransferase 20 U/L (13-39); BUN Creatinine Ratio 11.8 (10-20); Bilirubin,Total 2.1 mg/dl (0.2-1.0); Blood Urea Nitrogen 24 mg/dl (6-23); Calcium 9.6 mg/dl (8.6-10.3); Carbon Dioxide 27 mmol/L (21-32); Chloride 102 mmol/L (98-107); Globulin 3.1 gm/dl (2.5-4.0); Glucose 123 mg/dl (70-99(Fasting)); Potassium 4.8 mmol/L (3.5-5.1); Sodium 138 mmol/L (136-145); Total Protein 7.7 gm/dl (6.0-8.3)
--- NOTE | 2024-04-24 11:53 | Emergency Department Note ---
Impression & Plan Hypoxia, Acute exacerbation of chronic obstructive pulmonary disease ED Provider Note Provider: Enrique Houston MD CHIEF COMPLAINT: Shortness of breath HISTORY OF PRESENT ILLNESS: Patient is a 83-year-old gentleman history of diabetes, tachybradycardia syndrome, CKD, COPD, and atrial fibrillation on Eliquis presenting here today complaining of worsening shortness of breath and some elevated heart rate noted this morning. Has been feeling fairly well. Denies sick contact. [place] fever. Noted heart rate is elevated today and more short of breath particular with ambulation of the bathroom this morning. States compliant with home medications other than this morning. Noted his heart rate to be elevated at times in the 120s has pulse ox to be into the 80s at home. Does not wear oxygen during the day. No abdominal pain or nausea or vomiting reported. No significant leg swelling reported. No syncope or falls but does state he got lightheaded when ambulating with worsening breathing. PAST MEDICAL HISTORY: As noted above MEDICATIONS: Reviewed home medications includes Eliquis SOCIAL HISTORY: Former smoker PHYSICAL EXAM: GENERAL: alert and oriented in no acute distress on stretcher Head: normocephalic and atraumatic EYES: No injection, discharge or icterus. EOMI. NECK: Trachea midline. ENT: Mucous membranes pink and moist. LUNGS: Airway patent. No retractions. Breath sounds diminished with faint expiratory wheeze HEART: Regular rate and rhythm. No chest wall tenderness ABDOMEN: Soft and non-tender, without guarding or rebound. SKIN: Acyanotic, warm, dry, without rashes EXTREMITIES: Without swelling, tenderness or deformity NEUROLOGICAL: No focal deficits. No aphasia. No facial droop or slurred speech. Normal strength and tone in the extremities. Sensation to gross touch normal. Ambulatory. EK bpm. Normal sinus rhythm. No PVC or PAC. No acute ST segment elevation or depression with QTc 430. CONTINUOUS CARDIAC MONITORING: was ordered and showed a heart rate of 60s to 90s bpm in normal sinus rhythm Patient's laboratory studies and imaging reviewed. Differential includes Reactive airway disease, pneumonia, pneumothorax, COPD, CHF, infections, cardiac ischemia, pulmonary embolism, musculoskeletal, gastrointestinal, as well as other pathologies. IMPRESSION/MEDICAL DECISION MAKING: Hypoxic on room air. Anticoagulated lower suspicion for VTE. Leukocytosis of 17. Received 125 mg of IV steroids prior to arrival with EMS. Chronic CKD is noted. High-sensitivity troponin 27 question a little bit of demand from his hypoxia and increased work of breathing. Believe likely this is driven more by COPD exacerbation. X-ray and respiratory viral panel sent to help exclude pneumonia or viral infection component. Given DuoNeb here to help with breathing. Does not appear significantly fluid overloaded. No other significant electrolyte abnormalities noted. Respiratory viral panel surprisingly normal. Chest x-ray without evidence of pneumothorax with Edematous changes and prior lung resection surgical changes noted. Will bring in for further treatment of COPD at this time. Will cover with a dose of cefepime and azithromycin given the patient's leukocytosis and shortness of breath here and his underlying lung disease. DIAGNOSIS: Acute COPD exacerbation, hypoxia DISPOSITION: Hospitalist will evaluate Patient was agreeable with this plan. 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, 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 Chronic respiratory failure with hypoxia Nocturnal hypoxia Secondary hyperparathyroidism COVID-19 (Acute) Acute kidney injury superimposed on chronic kidney disease Multiple closed fractures of ribs of right side (Acute) Fall from standing (Acute) Colon cancer screening Lightheadedness History of hematuria Anemia due to chronic kidney disease Vitamin D deficiency resolved Acute kidney injury (Acute) Stage 3b chronic kidney disease History of loop recorder Sinus pause Elevated prostate specific antigen (PSA) Bladder neck contracture Hypersomnia Ex-smoker Exertional shortness of breath COPD with emphysema BPH NOS w ur obs/LUTS Neurogenic bladder Anticoagulant long-term use Acute kidney injury (Acute) Atrial fibrillation hx- pacemaker placed 07/05/23 currently on eliquis; dr. jimenez, mnp COPD (chronic obstructive pulmonary disease) (Chronic) daily and prn inh Hypertension (Chronic) hx Medical History Sinus tachycardia Hx of tachycardia-bradycardia syndrome Secondary hyperparathyroidism HTN (hypertension) Hx of cancer of lung COPD (chronic obstructive pulmonary disease) Atrial fibrillation Anticoagulant long-term use Stage 3 chronic kidney disease Anemia due to chronic kidney disease Nocturnal hypoxia Chronic respiratory failure Esophageal dysphagia Pacemaker On home oxygen therapy SOB (shortness of breath) on exertion History of COVID-19 Neurogenic bladder Macular degeneration of right eye GERD (gastroesophageal reflux disease) Hyperlipidemia Self-catheterizes urinary bladder Glaucoma Surgical History Status post placement of cardiac pacemaker History of loop recorder Hx of hernia repair Hx of colonoscopy Hx of bilateral cataract extraction History of lobectomy of lung Hx of transurethral resection of prostate Family History Mother Lung cancer Diabetes Father Lung cancer Social History Smoking Status: Former smoker Tobacco Type: Cigarettes Age Started Using Tobacco: 20; Age Quit Using Tobacco: 67; packs per day: 2; Cigarettes Per Day: 2 packs a day.; Second Hand Exposure: No; Do You Dip or Chew Tobacco: No; Hx Alcohol Use: No Hx Substance Use: No Preferred Language: Syrian Communication Ability: Effective Recreation Establishment Manager Required: No Beliefs That Will Affect Care: None marital status: Single Current Living Situation: Alone current occupational status: retired Feels Safe at Home: Yes Assistive Devices: Cane and Oxygen - at Night Allergies Allergies Allergy/AdvReac Type Severity Reaction Status Date / Time simvastatin [From Zocor] Allergy Unknown myalgia Verified 04/06/24 14:03 Home Meds Home Medications Medication Instructions Recorded Confirmed atorvastatin 20 mg tablet 10 mg PO HS 11/05/21 02/02/24 vitamins A,C,M-cyfw-elfnoz 2,148 1 tab PO BID 02/16/23 02/02/24 mcg-113 mg-45 mg-17.4 mg tablet (PreserVision AREDS) apixaban 5 mg tablet (Eliquis) 2.5 mg PO BID 05/30/23 02/02/24 albuterol sulfate 90 mcg/actuation 0 puff inhalation Q6H PRN 01/05/24 02/02/24 aerosol inhaler SOB/Wheezing ascorbic acid (vitamin C) 500 mg 250 mg PO DAILY 01/05/24 02/02/24 tablet calcitriol 0.25 mcg capsule 0.25 mcg PO 3XWK CKD 01/05/24 02/02/24 ciclopirox 8 % topical solution See Rx Instructions .Route .COMPLEX 01/05/24 02/02/24 emollient 1 ea topical DAILY w/ 01/05/24 02/02/24 catheterization ferrous sulfate 325 mg (65 mg 325 mg PO DAILY 01/05/24 02/02/24 iron) tablet lidocaine 5 % topical patch 1 patch topical DAILY 01/05/24 02/02/24 metoprolol succinate 100 mg 0 mg PO DAILY 01/05/24 02/02/24 tablet,extended release 24 hr lisinopril 5 mg tablet 5 mg PO DAILY 02/02/24 02/02/24 Previous Rx's Medication Instructions Recorded mometasone-formoterol HFA 100 2 puff inhalation BID #3 Inhalers 05/03/23 mcg-5 mcg/actuation aerosol inhaler (Dulera) Oxygen Home #1 ea 10/03/23 pantoprazole 40 mg tablet,delayed 40 mg PO BID #180 tabs 11/07/23 release cyanocobalamin (vitamin B-12) 500 500 mcg PO QAM #30 tabs 01/07/24 mcg tablet magnesium oxide 400 mg PO DAILY #30 caps 01/07/24 thiamine HCl (vitamin B1) 100 mg 100 mg PO BID #60 tabs 01/07/24 tablet dapagliflozin propanediol 10 mg 10 mg PO DAILY #90 tabs 04/23/24 tablet (Farxiga) Results & Data (ED) Vital Signs Vital Signs - 24 hr 04/24/24 10:48 04/24/24 11:09 04/24/24 11:44 Temperature 36.4 C L Temperature Source Temporal Artery Scan Pulse Rate 95 H Pulse Rate from SpO2 Sensor Respiratory Rate 22 Respiratory Effort / Characteristics Short of Breath Blood Pressure 123/84 Blood Pressure Mean 97 Pulse Oximetry 92 95 Oxygen Delivery Method Nasal Cannula Nasal Cannula Nasal Cannula Oxygen Flow Rate 2 2 Sepsis Recent Fever Within 48 Hours No Sepsis New/Unexplained Change in Mental Status N/A Sepsis Action Taken by Nursing No Action Required Oxygen Flow Rate - Titration 2 Pulse Oximetry Post Tiitration 96 04/24/24 12:00 04/24/24 12:13 Temperature Temperature Source Pulse Rate 66 Pulse Rate from SpO2 Sensor 66 Respiratory Rate 16 20 Respiratory Effort / Characteristics Non-Labored Spontaneous Blood Pressure 123/62 Blood Pressure Mean 82 Pulse Oximetry 94 97 Oxygen Delivery Method Nasal Cannula Nasal Cannula Oxygen Flow Rate 2 3 Sepsis Recent Fever Within 48 Hours Sepsis New/Unexplained Change in Mental Status Sepsis Action Taken by Nursing Oxygen Flow Rate - Titration Pulse Oximetry Post Tiitration Laboratory Data 04/24/24 11:10 04/24/24 11:10 Lab Results 04/24/24 Range/Units 11:10 WBC 17.46 H (4.8-10.8) K/ul RBC 5.17 (4.70-6.10) M/uL Hgb 15.7 (14.0-18.0) g/dl Hct 47.0 (42.0-52.0) % MCV 90.9 (80.0-100.0) fL MCH 30.4 (25.0-34.0) pg MCHC 33.4 (32.0-36.0) g/dL RDW Std Deviation 41.7 (36.4-46.3) fL RDW Coeff of Jacque 12.6 (11.5-14.5) % Plt Count 157 (130-400) K/uL MPV 9.3 L (9.4-12.4) fL Immature Gran % (Auto) 0.5 % Neut % (Auto) 77.7 % Lymph % (Auto) 13.5 % [place] % (Auto) 7.1 % Eos % (Auto) 0.7 % Baso % (Auto) 0.5 % Neut # (Auto) 13.55 H (1.40-6.50) K/uL Lymph # (Auto) 2.36 (1.20-3.40) K/uL [place] # (Auto) 1.24 H (0.11-0.59) K/uL Eos # (Auto) 0.13 (0.00-0.50) K/uL Baso # (Auto) 0.09 (0.00-0.20) K/uL Immature Gran # (Auto) 0.09 (0.01-0.20) K/uL PT 12.6 H (9.0-12.0) Seconds INR 1.2 H (0.9-1.1) APTT 31 (21-31) Seconds PTT Ratio 1.2 Sodium 138 (136-145) mmol/L Potassium 4.8 (3.5-5.1) mmol/L Chloride 102 (98-107) mmol/L Carbon Dioxide 27 (21-32) mmol/L Anion Gap 9 (3-11) BUN 24 H (6-23) mg/dl Creatinine 2.04 H (0.6-1.4) mg/dl Est Cr Clr Drug Dosing Not Reportable eGFR 32.14 BUN/Creatinine Ratio 11.8 (10-20) Glucose 123 H (70-99(Fasting)) mg/dl Calcium 9.6 (8.6-10.3) mg/dl Total Bilirubin 2.1 H (0.2-1.0) mg/dl AST 20 (13-39) U/L ALT 12 (7-52) U/L Alkaline Phosphatase 122 H (34-104) U/L Troponin I High Sens 27.0 H (0-20) pg/ml Total Protein 7.7 (6.0-8.3) gm/dl Albumin 4.6 (3.4-5.0) gm/dl Globulin 3.1 (2.5-4.0) gm/dl Albumin/Globulin Ratio 1.5 (0.9-2) Adenovirus (PCR) Not Detected (NotDetected) B. pertussis DNA (PCR) Not Detected (NotDetected) B.parapertussis DNA PCR Not Detected (NotDetected) C. pneumoniae DNA (PCR) Not Detected (NotDetected) Coronavirus OC43 (PCR) Not Detected (NotDetected) Coronavirus HKU1 (PCR) Not Detected (NotDetected) Coronavirus 229E (PCR) Not Detected (NotDetected) SARS-CoV-2 (PCR) Not Detected (NotDetected) Coronavirus NL63 (PCR) Not Detected (NotDetected) Human Metapneumovir PCR Not Detected (NotDetected) Influenza Type A (PCR) Not Detected (NotDetected) Influenza Type B (PCR) Not Detected (NotDetected) M. pneumoniae (PCR) Not Detected (NotDetected) Parainfluenza 1 (PCR) Not Detected (NotDetected) Parainfluenza 2 (PCR) Not Detected (NotDetected) Parainfluenza 3 (PCR) Not Detected (NotDetected) Parainfluenza 4 (PCR) Not Detected (NotDetected) RSV (PCR) Not Detected (NotDetected) Entero/Rhino (PCR) Not Detected (NotDetected) Administered Medications Discontinued Medications Albuterol (Albut/Ipratrop 3mg/0.5mg Neb 3 Ml Vial) 12 ml NEB ONE ONE; Protocol Stop: 04/24/24 11:49 Last Admin: 04/24/24 12:11 Dose: 12 ml Documented By: DILSHAD Azithromycin (Azithromycin 250 Mg Tab) 500 mg PO NOW ONE Stop: 04/24/24 12:24 Last Admin: 04/24/24 12:33 Dose: 500 mg [place] [facility] [place] Cefepime HCl (Maxipime 2000mg) 2,000 mg in 20 mls @ 5 mls/min IV NOW STA; Protocol Stop: 04/24/24 12:26 Last Admin: 04/24/24 12:35 Dose: 5 mls/min [place]ed [place] [facility] [place] Data Radiologist's Impression: Chest X-Ray 04/24/24 10:57 XR chest 1V portable CLINICAL HISTORY: Chest pain, nonspecific COMPARISON STUDY: 01/06/2024 FINDINGS: Stable pacemaker. Stable cardiomegaly without pulmonary vascular congestion. Stable opacity at the left base with blunting of the left costophrenic angle. No pneumothorax. Stable old right rib fractures. IMPRESSION: Stable exam. No acute findings seen. ACT 112: Negative or not required by law. Electronically signed by: Clint Davidson M.D. 04/24/2024 12:48 PM Discharge Plan Visit Data Chief Complaint: Shortness of Breath/Dyspnea ED Provider: Enrique Houston Discharge Problem: Hypoxia, Acute exacerbation of chronic obstructive pulmonary disease Patient Disposition: Being Evaluated by Hospitalist Forms Stand Alone Forms: My [facility] Prescriptions Prescriptions: No Action (DME) Oxygen Home Liters Per Minute See Rx Instructions .Route Qty: 1 0RF Rx Instructions: Oxygen at 2lpm via NC with activity and sleep ROMAN 99 dapagliflozin propanediol [Farxiga] 10 mg tablet 10 mg PO DAILY Qty: 90 3RF Dulera 100-5 mcg/actuation HFA aerosol inhaler 2 puff inhalation BID Qty: 3 4RF atorvastatin 20 mg tablet 10 mg PO HS Eliquis 5 mg tablet 2.5 mg PO BID pantoprazole 40 mg tablet,delayed release (DR/EC) 40 mg PO BID Qty: 180 3RF lisinopril 5 mg tablet 5 mg PO DAILY PreserVision AREDS 2,148 mcg-113 mg-45 mg-17.4mg Tablet 1 tab PO BID Rx Instructions: administer with AM and PM meals metoprolol succinate 100 mg Tablet Extended Release 24 Hr 0 mg PO DAILY Rx Instructions: Med list from [facility] shows this as active/suspended. Original Directions: 100mg by mouth daily ciclopirox 8 % Solution See Rx Instructions .ROUTE .COMPLEX Rx Instructions: Apply a small amount to skin every day, apply topically over affected toenail and surrounding skin. Apply daily over previous coat. After 7 days, remove with rubbing alcohol and continue cycle for tinea unguium. ascorbic acid (vitamin C) 500 mg Tablet 250 mg PO DAILY ferrous sulfate 325 mg (65 mg iron) Tablet 325 mg PO DAILY lidocaine 5 % Adhesive Patch,Medicated 1 patch TOPICAL DAILY Rx Instructions: leave on most painful area for up to 12 hrs albuterol sulfate 90 mcg/actuation Hfa Aerosol Inhaler 0 puff INHALATION Q6H PRN (Reason: SOB/Wheezing) Rx Instructions: Per med list from [facility], this medication is currently on hold. Original Directions: 2 puffs q6h PRN calcitriol 0.25 mcg Capsule 0.25 mcg PO 3XWK emollient Lubricant 1 ea TOPICAL DAILY cyanocobalamin (vitamin B-12) 500 mcg Tablet 500 mcg PO QAM Qty: 30 0RF thiamine HCl (vitamin B1) 100 mg Tablet 100 mg PO BID Qty: 60 0RF magnesium oxide 400 mg magnesium capsule 400 mg PO DAILY Qty: 30 0RF Referrals Referrals: Mir Francis, [employer] [Primary Care Provider] -
[2024-04-24 11:57] LABS: INR 1.2 (0.9-1.1); Partial Thromboplastin Ratio 1.2; Partial Thromboplastin Time 31 Seconds (21-31); Prothrombin Time 12.6 Seconds (9.0-12.0)
--- NOTE | 2024-04-24 11:57 | Electrocardiogram Report ---
Test Reason : Blood Pressure : */* mmHG Vent. Rate : 92 BPM Atrial Rate : 92 BPM P-R Int : 138 ms QRS Dur : 60 ms QT Int : 348 ms P-R-T Axes : 45 34 72 degrees QTcB Int : 430 ms Poor data quality, interpretation may be adversely affected Normal sinus rhythm Old Anterior infarct Abnormal ECG When compared with ECG of 06-Jan-2024 06:11, Sinus rhythm has replaced Electronic atrial pacemaker Vent. rate has increased by 30 bpm Criteria for Anterior infarct is now Present Confirmed by Aaron Perea ([id number]) on 04/24/2024 11:57:02 AM Referred By: Confirmed By: Aaron Perea
[2024-04-24] MEDS: ALBUT/IPRATROP 3MG/0.5MG NEB 3 ML VIAL NEB ONE (12:11)
[2024-04-24 12:17] LABS: Adenovirus PCR Not Detected (NotDetected); Bordetella parapertussis PCR Not Detected (NotDetected); Bordetella pertussis PCR Not Detected (NotDetected); Chlamydia pneumoniae PCR Not Detected (NotDetected); Coronavirus 229E PCR Not Detected (NotDetected); Coronavirus CoV-2 (COVID19)PCR Not Detected (NotDetected); Coronavirus HKU1 PCR Not Detected (NotDetected); Coronavirus NL63 PCR Not Detected (NotDetected); Coronavirus OC43PCR Not Detected (NotDetected); Human Metapneumovirus PCR Not Detected (NotDetected); Influenza A PCR Not Detected (NotDetected); Influenza B PCR Not Detected (NotDetected); Mycoplasma pneumoniae PCR Not Detected (NotDetected); Parainfluenza Virus 1 PCR Not Detected (NotDetected); Parainfluenza Virus 2 PCR Not Detected (NotDetected); Parainfluenza Virus 3 PCR Not Detected (NotDetected); Parainfluenza Virus 4 PCR Not Detected (NotDetected); Respiratory Syncytial VirusPCR Not Detected (NotDetected); Rhinovirus/Enterovirus PCR Not Detected (NotDetected)
[2024-04-24] MEDS: AZITHROMYCIN 250 MG TAB PO ONE (12:33)
[2024-04-24] MEDS: CEFEPIME 2000MG 2,000 MG/20 ML SYR IV STA (12:35)
--- NOTE | 2024-04-24 12:49 | XRay Report ---
XR chest 1V portable CLINICAL HISTORY: Chest pain, nonspecific COMPARISON STUDY: 01/06/2024 FINDINGS: Stable pacemaker. Stable cardiomegaly without pulmonary vascular congestion. Stable opacity at the left base with blunting of the left costophrenic angle. No pneumothorax. Stable old right rib fractures. IMPRESSION: Stable exam. No acute findings seen. ACT 112: Negative or not required by law. Electronically signed by: Clint Davidson M.D. 04/24/2024 12:48 PM
[2024-04-24] MEDS ORDERED: ALBUT/IPRATROP 3MG/0.5MG NEB 3 ML VIAL NEB PRN (12:56)
[2024-04-24] MEDS ORDERED: Patient's HEIGHT &/or WEIGHT Needed SCH (13:00)
--- NOTE | 2024-04-24 13:06 | History & Physical Report ---
Date of Service April 24, 2024 Assessment & Plan (1) Acute on chronic respiratory failure with hypoxia: (2) Acute exacerbation of chronic obstructive pulmonary disease: (3) Diabetes mellitus: (4) Stage 3b chronic kidney disease: Plan The patient is an 83-year-old male with past medical history including COPD, diabetes mellitus, AAA, nonsustained V. tach, history of pacemaker, tachybradycardia syndrome, CKD stage III, chronic anemia, BPH with LUTS, neurogenic bladder, atrial fibrillation on chronic anticoagulation, lung cancer and hypertension. He presents to the emergency department after noticing worsening shortness of breath that persisted from last night into the evening and morning today. He denies any fevers or chills, he denies any recent exposures. #Acute on chronic respiratory failure with hypoxia/COPD exacerbation- From ED received the following: Hour-long DuoNeb, azithromycin 500mg p.o., and cefepime 2 g IV While in the ED add Solu-Medrol 125 mg IV Solu-Medrol 40 mg IV every 8 hours Cefepime 2 g IV every 12 hours Azithromycin 500 mg p.o. daily DuoNebs every 2 hours as needed Mucinex 600 mg p.o. every 12 hours Sputum Gram stain and culture Elevated troponin/atrial fibrillation/hypertension The patient will be admitted to telemetry for serial cardiac enzymes, serial EKG's, cardiac rhythm monitoring and a 2-D echocardiogram with Dopplers. Troponin 27.0 on admission Follow serially, likely type II supply/demand mismatch Continue apixaban, metoprolol succinate Hold lisinopril CKD stage III- Creatinine 2.04 on admission, with base 2.27 Followed serially GERD- Continue pantoprazole Hyperlipidemia- Continue atorvastatin History of Present Illness Chief Complaint: The patient presents to the emergency department with acute worsening shortness of breath that began last evening, as he was trying to go to bed. He noticed his pulse ox was dropping through the night, and due to worsening shortness of breath this morning, he presents to the ED for assessment. Primary Care Provider: ANGELES Bruce The patient is an 83-year-old male with past medical history including COPD, diabetes mellitus, AAA, nonsustained V. tach, history of pacemaker, tachybradycardia syndrome, CKD stage III, chronic anemia, BPH with LUTS, neurogenic bladder, atrial fibrillation on chronic anticoagulation, lung cancer and hypertension. He presents to the emergency department after noticing worsening shortness of breath that persisted from last night into the evening and morning today. He denies any fevers or chills, he denies any recent exposures. Allergies Allergy/AdvReac Type Severity Reaction Status Date / Time simvastatin [From Zocor] Allergy Unknown myalgia Verified 04/06/24 14:03 Home Medications Medication Instructions Recorded Confirmed Type atorvastatin 20 mg tablet 10 mg PO HS 11/05/21 02/02/24 History vitamins A,C,X-twlh-sbftxb 2,148 1 tab PO BID 02/16/23 02/02/24 History mcg-113 mg-45 mg-17.4 mg tablet (PreserVision AREDS) mometasone-formoterol HFA 100 2 puff inhalation BID #3 Inhalers 05/03/23 02/02/24 Rx mcg-5 mcg/actuation aerosol inhaler (Dulera) apixaban 5 mg tablet (Eliquis) 2.5 mg PO BID 05/30/23 02/02/24 History Oxygen Home #1 ea 10/03/23 02/02/24 Rx pantoprazole 40 mg tablet,delayed 40 mg PO BID #180 tabs 11/07/23 02/02/24 Rx release albuterol sulfate 90 mcg/actuation 0 puff inhalation Q6H PRN 01/05/24 02/02/24 History aerosol inhaler SOB/Wheezing ascorbic acid (vitamin C) 500 mg 250 mg PO DAILY 01/05/24 02/02/24 History tablet calcitriol 0.25 mcg capsule 0.25 mcg PO 3XWK CKD 01/05/24 02/02/24 History ciclopirox 8 % topical solution See Rx Instructions .Route .COMPLEX 01/05/24 02/02/24 History emollient 1 ea topical DAILY w/ 01/05/24 02/02/24 History catheterization ferrous sulfate 325 mg (65 mg 325 mg PO DAILY 01/05/24 02/02/24 History iron) tablet lidocaine 5 % topical patch 1 patch topical DAILY 01/05/24 02/02/24 History metoprolol succinate 100 mg 0 mg PO DAILY 01/05/24 02/02/24 History tablet,extended release 24 hr cyanocobalamin (vitamin B-12) 500 500 mcg PO QAM #30 tabs 01/07/24 02/02/24 Rx mcg tablet magnesium oxide 400 mg PO DAILY #30 caps 01/07/24 02/02/24 Rx thiamine HCl (vitamin B1) 100 mg 100 mg PO BID #60 tabs 01/07/24 02/02/24 Rx tablet lisinopril 5 mg tablet 5 mg PO DAILY 02/02/24 02/02/24 History dapagliflozin propanediol 10 mg 10 mg PO DAILY #90 tabs 04/23/24 Rx tablet (Farxiga) Past Med/Surg History Problem List (Updated 04/24/24 @ 13:02 by Art Shearer MD) Acute on chronic respiratory failure with hypoxia Acute exacerbation of chronic obstructive pulmonary disease (Acute) Hypoxia (Acute) Diabetes mellitus Palpitations AAA (abdominal aortic aneurysm) without rupture ~8-10 yrs; recent eval [facility] 08/09/23 Nonsustained ventricular tachycardia SVT (supraventricular tachycardia) Esophageal dysphagia 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, 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 Chronic respiratory failure with hypoxia Nocturnal hypoxia Secondary hyperparathyroidism COVID-19 (Acute) Acute kidney injury superimposed on chronic kidney disease Multiple closed fractures of ribs of right side (Acute) Fall from standing (Acute) Colon cancer screening Lightheadedness History of hematuria Anemia due to chronic kidney disease Vitamin D deficiency resolved Acute kidney injury (Acute) Stage 3b chronic kidney disease History of loop recorder Sinus pause Elevated prostate specific antigen (PSA) Bladder neck contracture Hypersomnia Ex-smoker Exertional shortness of breath COPD with emphysema BPH NOS w ur obs/LUTS Neurogenic bladder Anticoagulant long-term use Acute kidney injury (Acute) Atrial fibrillation hx- pacemaker placed 07/05/23 currently on eliquis; dr. jimenez, [facility] [place] COPD (chronic obstructive pulmonary disease) (Chronic) daily and prn inh Hypertension (Chronic) hx Medical History Sinus tachycardia Hx of tachycardia-bradycardia syndrome Secondary hyperparathyroidism HTN (hypertension) Hx of cancer of lung COPD (chronic obstructive pulmonary disease) Atrial fibrillation Anticoagulant long-term use Stage 3 chronic kidney disease Anemia due to chronic kidney disease Nocturnal hypoxia Chronic respiratory failure Esophageal dysphagia Pacemaker On home oxygen therapy SOB (shortness of breath) on exertion History of COVID-19 Neurogenic bladder Macular degeneration of right eye GERD (gastroesophageal reflux disease) Hyperlipidemia Self-catheterizes urinary bladder Glaucoma Surgical History Status post placement of cardiac pacemaker History of loop recorder Hx of hernia repair Hx of colonoscopy Hx of bilateral cataract extraction History of lobectomy of lung Hx of transurethral resection of prostate Family History Mother Lung cancer Diabetes Father Lung cancer Social History Smoking Status: Former smoker Tobacco Type: Cigarettes Age Started Using Tobacco: 20; Age Quit Using Tobacco: 67; packs per day: 2; Cigarettes Per Day: 2 packs a day.; Second Hand Exposure: No; Do You Dip or Chew Tobacco: No; Hx Alcohol Use: No Hx Substance Use: No Preferred Language: Maori Communication Ability: Effective Ends Breakage Clerk Required: No Beliefs That Will Affect Care: None marital status: Single Current Living Situation: Alone current occupational status: retired Feels Safe at Home: Yes Assistive Devices: Cane and Oxygen - at Night Review of Systems Review of Systems: The patient denies chest pain, palpitations, lower extremity swelling, sore throat, fevers, chills, sweats, weight change, fatigue, nausea, vomiting, diarrhea , constipation, abdominal pain, pelvic pain, blood in urine or stool, dysuria, urinary frequency or urgency, lightheadedness, dizziness, headache, memory loss, loss of consciousness, rash, abnormal bruising or bleeding, imbalance, focal or generalized weakness, numbness or tingling in arms or legs, generalized arthralgias or myalgias, back or neck pain, or night sweats. The review of systems is otherwise negative other than for that already noted above, and at least 10 systems have been reviewed. Physical Exam Physical Exam: The patient is awake, alert and oriented 3, well developed and well nourished, normocephalic and atraumatic, lying in bed and in no acute distress. HEENT--PERRL, EOMI, mucous membranes and oropharynx normal Neck--supple. No JVD. No bruits. Thyroid normal, trachea midline, no adenopathy. Heart--normal S1 and S2. No murmurs, rubs or gallops. Lungs--coarse breath sounds with wheezes bilaterally. No respiratory distress, no accessory muscle use. Abdomen--normal bowel sounds and soft. Nontender. Nondistended, no hernias or masses, no organomegaly. Extremities--no cyanosis or clubbing. No edema. There are good distal pulses b/l. Dermatologic--normal skin turgor, normal color, no abnormal lymph nodes, no rash. Neurologic--cranial nerves II through XII grossly intact. Rheumatologic--normal range of motion. Psychiatric--normal affect. Results & Data Results & Data Vital Signs (Past 12 Hours) Vital Signs Temp Pulse Resp BP Pulse Ox O2 Del Method O2 Flow Rate 04/24/24 12:13 20 97 Nasal Cannula 3 04/24/24 12:00 66 16 123/62 94 Nasal Cannula 2 04/24/24 11:44 95 Nasal Cannula 2 04/24/24 11:09 Nasal Cannula 04/24/24 10:48 36.4 C L 95 H 22 123/84 92 Nasal Cannula 2 Laboratory Results Laboratory Results WBC 17.46 K/ul (4.8-10.8) H 04/24/24 11:10 RBC 5.17 M/uL (4.70-6.10) 04/24/24 11:10 Hgb 15.7 g/dl (14.0-18.0) 04/24/24 11:10 Hct 47.0 % (42.0-52.0) 04/24/24 11:10 MCV 90.9 fL (80.0-100.0) 04/24/24 11:10 MCH 30.4 pg (25.0-34.0) 04/24/24 11:10 MCHC 33.4 g/dL (32.0-36.0) 04/24/24 11:10 RDW Std Deviation 41.7 fL (36.4-46.3) 04/24/24 11:10 RDW Coeff of Jacque 12.6 % (11.5-14.5) 04/24/24 11:10 Plt Count 157 K/uL (130-400) 04/24/24 11:10 MPV 9.3 fL (9.4-12.4) L 04/24/24 11:10 Immature Gran % (Auto) 0.5 % 04/24/24 11:10 Neut % (Auto) 77.7 % 04/24/24 11:10 Lymph % (Auto) 13.5 % 04/24/24 11:10 Finney % (Auto) 7.1 % 04/24/24 11:10 Eos % (Auto) 0.7 % 04/24/24 11:10 Baso % (Auto) 0.5 % 04/24/24 11:10 Neut # (Auto) 13.55 K/uL (1.40-6.50) H 04/24/24 11:10 Lymph # (Auto) 2.36 K/uL (1.20-3.40) 04/24/24 11:10 Finney # (Auto) 1.24 K/uL (0.11-0.59) H 04/24/24 11:10 Eos # (Auto) 0.13 K/uL (0.00-0.50) 04/24/24 11:10 Baso # (Auto) 0.09 K/uL (0.00-0.20) 04/24/24 11:10 Immature Gran # (Auto) 0.09 K/uL (0.01-0.20) 04/24/24 11:10 PT 12.6 Seconds (9.0-12.0) H 04/24/24 11:10 INR 1.2 (0.9-1.1) H 04/24/24 11:10 APTT 31 Seconds (21-31) 04/24/24 11:10 PTT Ratio 1.2 04/24/24 11:10 Sodium 138 mmol/L (136-145) 04/24/24 11:10 Potassium 4.8 mmol/L (3.5-5.1) 04/24/24 11:10 Chloride 102 mmol/L (98-107) 04/24/24 11:10 Carbon Dioxide 27 mmol/L (21-32) 04/24/24 11:10 Anion Gap 9 (3-11) 04/24/24 11:10 BUN 24 mg/dl (6-23) H 04/24/24 11:10 Creatinine 2.04 mg/dl (0.6-1.4) H 04/24/24 11:10 Est Cr Clr Drug Dosing Not Reportable 04/24/24 11:10 eGFR 32.14 04/24/24 11:10 BUN/Creatinine Ratio 11.8 (10-20) 04/24/24 11:10 Glucose 123 mg/dl (70-99(Fasting)) H 04/24/24 11:10 Calcium 9.6 mg/dl (8.6-10.3) 04/24/24 11:10 Total Bilirubin 2.1 mg/dl (0.2-1.0) H 04/24/24 11:10 AST 20 U/L (13-39) 04/24/24 11:10 ALT 12 U/L (7-52) 04/24/24 11:10 Alkaline Phosphatase 122 U/L (34-104) H 04/24/24 11:10 Troponin I High Sens 27.0 pg/ml (0-20) H 04/24/24 11:10 Total Protein 7.7 gm/dl (6.0-8.3) 04/24/24 11:10 Albumin 4.6 gm/dl (3.4-5.0) 04/24/24 11:10 Globulin 3.1 gm/dl (2.5-4.0) 04/24/24 11:10 Albumin/Globulin Ratio 1.5 (0.9-2) 04/24/24 11:10 Adenovirus (PCR) Not Detected (NotDetected) 04/24/24 11:10 B. pertussis DNA (PCR) Not Detected (NotDetected) 04/24/24 11:10 B.parapertussis DNA PCR Not Detected (NotDetected) 04/24/24 11:10 C. pneumoniae DNA (PCR) Not Detected (NotDetected) 04/24/24 11:10 Coronavirus OC43 (PCR) Not Detected (NotDetected) 04/24/24 11:10 Coronavirus HKU1 (PCR) Not Detected (NotDetected) 04/24/24 11:10 Coronavirus 229E (PCR) Not Detected (NotDetected) 04/24/24 11:10 SARS-CoV-2 (PCR) Not Detected (NotDetected) 04/24/24 11:10 Coronavirus NL63 (PCR) Not Detected (NotDetected) 04/24/24 11:10 Human Metapneumovir PCR Not Detected (NotDetected) 04/24/24 11:10 Influenza Type A (PCR) Not Detected (NotDetected) 04/24/24 11:10 Influenza Type B (PCR) Not Detected (NotDetected) 04/24/24 11:10 M. pneumoniae (PCR) Not Detected (NotDetected) 04/24/24 11:10 Parainfluenza 1 (PCR) Not Detected (NotDetected) 04/24/24 11:10 Parainfluenza 2 (PCR) Not Detected (NotDetected) 04/24/24 11:10 Parainfluenza 3 (PCR) Not Detected (NotDetected) 04/24/24 11:10 Parainfluenza 4 (PCR) Not Detected (NotDetected) 04/24/24 11:10 RSV (PCR) Not Detected (NotDetected) 04/24/24 11:10 Entero/Rhino (PCR) Not Detected (NotDetected) 04/24/24 11:10 Impressions Chest X-Ray 04/24/24 10:57 XR chest 1V portable CLINICAL HISTORY: Chest pain, nonspecific COMPARISON STUDY: 01/06/2024 FINDINGS: Stable pacemaker. Stable cardiomegaly without pulmonary vascular congestion. Stable opacity at the left base with blunting of the left costophrenic angle. No pneumothorax. Stable old right rib fractures. IMPRESSION: Stable exam. No acute findings seen. ACT 112: Negative or not required by law. Electronically signed by: Clint Davidson M.D. 04/24/2024 12:48 PM Code Status & VTE Plan Code Status Full code VTE Prophylaxis Plan VTE Prophylaxis will be ordered: Yes PG Care Time/CCT Total # of Minutes Spent Total Time Spent with Patient: Total time spent is greater than 50% in coordination of care (as documented) at patient's floor/unit and/or counseling patient: Coding Level of Care Code 81273 INT INP/OBS CARE 3/75MIN Diagnoses Acute on chronic respiratory failure with hypoxia J96.21 Acute exacerbation of chronic obstructive pulmonary disease J44.1 Diabetes mellitus E11.9 Stage 3b chronic kidney disease N18.32
[2024-04-24] MEDS: methylPREDNISolone 125 MG/2 ML VIAL IV STA (13:34)
[2024-04-24] MEDS ORDERED: ACETAMINOPHEN 325 MG TAB PO PRN (15:34)
[2024-04-24] MEDS: FLUTICASONE/VILANTEROL 100/25MCG 14 PUFFS/INHALER INH SCH (17:20)
[2024-04-24] MEDS: CEROVITE ADV FORMULA TAB PO SCH (18:04)
[2024-04-24] MEDS ORDERED: methylPREDNISolone 10 mg/mL (For Ped Dose < 7mg) IV SCH (20:00)
[2024-04-24] MEDS: methylPREDNISolone 40 MG in SYRINGE 0 ML IV SCH (20:31)
[2024-04-24] MEDS: PANTOprazole 40 MG TAB PO SCH (20:31)
[2024-04-24] MEDS: THIAMINE HCL 100 MG TAB PO SCH (20:31)
[2024-04-24] MEDS: ATORVASTATIN 10 MG TAB PO SCH (20:31)
[2024-04-24] MEDS: guaiFENesin 600 MG TABCR PO SCH (20:32)
[2024-04-24] MEDS: APIXABAN 2.5 MG TAB PO SCH (20:32)
[2024-04-25] MEDS: CEFEPIME 2000MG 2,000 MG/20 ML SYR IV SCH (00:26)
[2024-04-25] MEDS: ASCORBIC ACID 500 MG TAB PO SCH (09:07)
[2024-04-25] MEDS: AZITHROMYCIN 250 MG TAB PO SCH (09:07)
[2024-04-25] MEDS: CALCITRIOL 0.25 MCG CAPSULE PO SCH (09:10)
[2024-04-25] MEDS: FERROUS SULFATE 325 MG TAB PO SCH (09:11)
[2024-04-25] MEDS: MAGNESIUM OXIDE 400 MG TAB PO SCH (09:11)
[2024-04-25] MEDS: CYANOCOBALAMIN (B-12) 500 MCG TABLET PO SCH (09:11)
[2024-04-25 09:42] LABS: Hemoglobin 14.2 g/dl (14.0-18.0); Immature Granulocytes # (auto) 0.05 K/uL (0.01-0.20); Immature Granulocytes % (auto) 0.4 %; Lymphocytes # (auto) 0.96 K/uL (1.20-3.40); Lymphocytes % (auto) 8.4 %; Mean Corpuscular Hemoglobin 30.3 pg (25.0-34.0); Mean Corpuscular Hgb Conc 33.8 g/dL (32.0-36.0); Mean Corpuscular Volume 89.7 fL (80.0-100.0); Mean Platelet Volume 9.2 fL (9.4-12.4); Monocytes # (auto) 0.22 K/uL (0.11-0.59); Monocytes % (auto) 1.9 %; Neutrophils # (auto) 10.21 K/uL (1.40-6.50); Neutrophils % (auto) 89.3 %; Platelet Count 146 K/uL (130-400); RDW Coefficient of Variation 12.4 % (11.5-14.5); RDW Standard Deviation 40.4 fL (36.4-46.3); Red Blood Count 4.68 M/uL (4.70-6.10); White Blood Count 11.44 K/ul (4.8-10.8)
[2024-04-25] MEDS: METOPROLOL SUCC 50MG EXT REL TAB PO SCH ×2 (09:49→09:52)
[2024-04-25 09:59] LABS: Albumin Level 4.1 gm/dl (3.4-5.0); BUN Creatinine Ratio 17.3 (10-20); Calcium 9.2 mg/dl (8.6-10.3); Magnesium 1.7 mg/dl (1.7-2.4); Phosphorus 2.1 mg/dl (2.5-4.9); Potassium 4.4 mmol/L (3.5-5.1)
[2024-04-25 10:05] LABS: Troponin I High Sensitivity 26.4 pg/ml (0-20)
--- NOTE | 2024-04-25 13:35 | Medical Student Progress Note ---
Date of Service April 25, 2024 Assessment & Plan (1) Acute on chronic respiratory failure with hypoxia: (2) Acute exacerbation of chronic obstructive pulmonary disease: (3) Diabetes mellitus: (4) Stage 3b chronic kidney disease: Plan The patient is an 83-year-old male with past medical history including COPD, diabetes mellitus, AAA, nonsustained V. tach, history of pacemaker, tachybradycardia syndrome, CKD stage III, chronic anemia, BPH with LUTS, neurogenic bladder, atrial fibrillation on chronic anticoagulation, lung cancer and hypertension. He presents to the emergency department after noticing worsening shortness of breath that persisted from last night into the evening and morning today. He denies any fevers or chills, he denies any recent exposures. 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 - Troponin 27.0 on admission has been in the mid-upper 20's -- Follow serially, likely type II supply/demand mismatch - Continue apixaban 2.5 mg BID - Metoprolol succinate 50 mg BID - Hold home lisinopril #CKD stage III - Creatinine 2.04 on admission, with base 2.27 - Followed serially #Chronic stable conditions - Continue home meds: atorvastatin, Farxiga/insulin if Farxiga not permitted, fluticasone-vilanterol, and home supplements DVT Prophylaxis: Apixaban (used above for atrial fibrillation) Admission and Anticipated Discharge Date Admission Date: April 24, 2024 Supervising Attestation Attending Physician Supervision Note: I independently interviewed and examined the patient and verified the mathur history and physical, reviewed labs and image studies and agree with findings and care plan noted above. Breathing better with rest but still getting short of breath with ambulation. no fever. comfortable in bed. good air entry, no R/R/W. RRR Acute resp failure - No O2 need while resting. 2 step in am. Nocturnal Hypoxia - on 2L O2 COPD exacerbation - neg sputum cx. d/c cefepime. continue azithromycin. IV steroids, nebs. Elevated trop - demand ischemia DM - Pharmacy consulted. Apixaban anticipate d/c home in am Subjective Mr. Gracia was seen at bedside this morning. He recently was visited with by other providers and stated he would like to keep the interaction brief. He stated that he has not needed oxygen well stationary, but needs oxygen when ambulating to the bathroom. He said that he uses oxygen at home. Otherwise, he has no further questions or concerns. This afternoon, we was lying in bed with his friend, Bettie, at bedside. He says that he has oxygen at home, but only uses 2L during sleep and not every night. She states that he is able to complete is activities of daily living without needing oxygen, so he is concerned that he has been needing oxygen here when ambulating. Otherwise, he feels much better and would like to try ambulating today without oxygen to see how he feels. Review of Systems Review of Systems: Per HPI Physical Exam Constitutional: Sitting comfortably at the edge of the bed and in no acute distress Respiratory: Lungs were clear to ascultation bilaterally, though diminished No increased work of breathing Cardiovascular: Regular rate and rhythm S1 and S2 appreciated Unable to hear additional heart sounds due to body habitus Results & Data Vital Signs (Past 12 Hours) Vital Signs Temp Pulse Resp BP Pulse Ox O2 Del Method O2 Flow Rate 04/25/24 11:08 36.9 C 74 18 102/62 90 Room Air 04/25/24 08:00 90 Room Air 04/25/24 08:00 Nasal Cannula 2 04/25/24 07:36 36.4 C L 76 18 113/68 90 Room Air 04/25/24 03:45 36.4 C L 68 15 98/57 L 93 Nasal Cannula 2
[2024-04-25] MEDS: CEFEPIME 1000MG 1,000 MG/10 ML SYR IV SCH (14:55)
[2024-04-26 03:58] VITALS: TEMP 97.3
[2024-04-26 07:38] LABS: Basophils # (auto) 0.02 K/uL (0.00-0.20); Basophils % (auto) 0.1 %; Hematocrit (blood only) 43.7 % (42.0-52.0); Hemoglobin 14.9 g/dl (14.0-18.0); Immature Granulocytes # (auto) 0.07 K/uL (0.01-0.20); Immature Granulocytes % (auto) 0.5 %; Lymphocytes # (auto) 1.14 K/uL (1.20-3.40); Lymphocytes % (auto) 7.8 %; Mean Corpuscular Hemoglobin 30.5 pg (25.0-34.0); Mean Corpuscular Hgb Conc 34.1 g/dL (32.0-36.0); Mean Corpuscular Volume 89.4 fL (80.0-100.0); Mean Platelet Volume 9.6 fL (9.4-12.4); Monocytes # (auto) 0.51 K/uL (0.11-0.59); Monocytes % (auto) 3.5 %; Neutrophils # (auto) 12.91 K/uL (1.40-6.50); Neutrophils % (auto) 88.1 %; Platelet Count 196 K/uL (130-400); RDW Coefficient of Variation 12.5 % (11.5-14.5); Red Blood Count 4.89 M/uL (4.70-6.10); White Blood Count 14.65 K/ul (4.8-10.8)
[2024-04-26 08:29] LABS: Albumin Level 4.4 gm/dl (3.4-5.0); BUN Creatinine Ratio 22.4 (10-20); Calcium 9.8 mg/dl (8.6-10.3); Creatinine Clr Calc Pharmacy 24.9 ml/min; Phosphorus 3.1 mg/dl (2.5-4.9); Potassium 4.8 mmol/L (3.5-5.1)
--- NOTE | 2024-04-26 10:01 | Discharge Summary ---
Date of Service April 26, 2024 Admission HPI Per Admitting Provider The patient is an 83-year-old male with past medical history including COPD, diabetes mellitus, AAA, nonsustained V. tach, history of pacemaker, tachybradycardia syndrome, CKD stage III, chronic anemia, BPH with LUTS, neurogenic bladder, atrial fibrillation on chronic anticoagulation, lung cancer and hypertension. He presents to the emergency department after noticing worsening shortness of breath that persisted from last night into the evening and morning today. He denies any fevers or chills, he denies any recent exposures. Admission Exam Per Admitting Provider The patient is awake, alert and oriented 3, well developed and well nourished, normocephalic and atraumatic, lying in bed and in no acute distress. HEENT--PERRL, EOMI, mucous membranes and oropharynx normal Neck--supple. No JVD. No bruits. Thyroid normal, trachea midline, no adenopathy. Heart--normal S1 and S2. No murmurs, rubs or gallops. Lungs--coarse breath sounds with wheezes bilaterally. No respiratory distress, no accessory muscle use. Abdomen--normal bowel sounds and soft. Nontender. Nondistended, no hernias or masses, no organomegaly. Extremities--no cyanosis or clubbing. No edema. There are good distal pulses b/l. Dermatologic--normal skin turgor, normal color, no abnormal lymph nodes, no rash. Neurologic--cranial nerves II through XII grossly intact. Rheumatologic--normal range of motion. Psychiatric--normal affect. Principal Diagnosis COPD exacerbation Discharge Exam General: Well Oriented to TPP, comfortable on bed. Heart: S1, S2, No murmurs. Lungs: BL decreased air entry. No added sound. No respiratory distress, no accessory muscle use. Abdomen-Soft Non tender, Normal Bowel sound. . Discharge Data Allergies Allergy/AdvReac Type Severity Reaction Status Date / Time simvastatin [From Zocor] Allergy Unknown myalgia Verified 04/06/24 14:03 Consultations 04/24/24 12:34 ED Decision to Admit Stat Hospital Course (1) Acute exacerbation of chronic obstructive pulmonary disease: The patient is an 83-year-old male with past medical history including COPD, diabetes mellitus, AAA, nonsustained V tach and tachybrady s/p pacemaker, CKD stage III, chronic anemia, BPH with LUTS, neurogenic bladder, atrial fibrillation on chronic anticoagulation, lung cancer s/p left lower lobe resection, and hypertension. He presented to the emergency department after worsening shortness of breath. COPD exacerbation - in the ED, pt received prolonged duoneb, azithromycin 500mg p.o., and cefepime 2 g IV, and Solu-Medrol 125 mg IV - Sputum stain/culture showed moderate normal chaim - he was continued on methylpred 40mg q8hr while hospitalized and azithromycin 500mg daily; cefepime was discontinued as no infectious etiology suspected - influenza vaccine given 04/24 - pt was discharged with 1 further dose of azithromycin 500mg to complete a total 3 day course and prednisone 50 mg daily x5 days Elevated troponin/atrial fibrillation/hypertension - was admitted to telemetry for serial cardiac enzymes, serial EKG's, cardiac rhythm monitoring and echo - echo showed EF 60-65% with normal left ventricular movement - troponin 27.0 on admission with no significant elevation throughout hospital stay - no intervention necessary this hospital stay; continue home medications CKD stage III - creatinine 2.04 on admission with increase to 2.5 with baseline in the 2s - recommend another outpatient BMP check to ensure CKD - f/u in 1 week with PCP (2) Diabetes mellitus: (3) Stage 3b chronic kidney disease: Total Time Total Time Spent Total Time Spent (In Minutes): See attending's attesatation Discharge Plan Discharge Items Patient Disposition: Home - Self-Care Reason For Visit: ACUTE ON CHRONIC RESPIRATORY FAILURE WITH HYPOXIA Discharge Diagnosis: COPD exacerbation Activity: Per Instructions section Non-emergency contact: Primary Care Provider Call non-emergency contact if: you have any medication questions and your symptoms worsen Follow-up/Referrals: Mir Francis, [employer] [facility] [Primary Care Provider] - (DC will call you with an appointment. Your admission records were faxed to your provider. ) Diet: Heart Healthy Addtl Attending Provider Instructions: You were admitted to the hospital for increased shortness of breath. You were treated with steroids and antibiotics. With this, your breathing improved. You did not require supplemental oxygen while at rest or with activity. Your oxygen goal should be 88% or greater. Your kidney function was slightly elevated during this admission. You should have this rechecked once out of the hospital- either tomorrow or early next week. A script was given to you for this lab work. Make sure to follow up with your PCP concerning this. A discharge summary will be sent to your primary care physician to ensure continuity of care. Please bring this discharge summary with you to your next office appointment so that your provider can review it at that time. Medications: Your medication list has been reviewed and reconciled upon discharge to ensure accuracy and continuity of care. An updated list of all your medications is included with your hospital discharge paperwork. Please review this list closely and make note of any changes to your medications. - You have been sent the antibiotic azithromycin 500mg. This will be only for one more day, tomorrow 04/27. - You have also been sent the steroid prednisone. This will be 1 pill (50 mg) for the next 5 days. Take this pill in the morning- your next dose is tomorrow, 04/27, morning. - Continue your daily inhalers as prior to this hospital stay. Follow up appointments: - Make a follow up appointment with your PCP within the next week. It is very important that you follow up with them shortly after discharge from the hospital. - Keep all of your follow up appointments as already scheduled. If you cannot make an appointment, notify your provider. CONTACT YOUR PRIMARY CARE PROVIDER if you experience any of the following: - Difficulty following your treatment plan - Difficulty taking any of your medications CALL 911 OR GO TO THE EMERGENCY DEPARTMENT if you experience any of the following: - Sudden, severe abdominal pain or nausea/vomiting - Severe chest pain or chest pain that radiates to your jaw or arm - Sudden, severe shortness of breath or difficulty breathing Pending Studies at Discharge: No Stand-Alone Forms: My [facility] [employer] Smoking Cessation Medications and DC Order Prescriptions: New prednisone 50 mg tablet 50 mg PO DAILY 5 Days Qty: 5 0RF azithromycin 500 mg tablet 500 mg PO DAILY Qty: 1 0RF Rx Instructions: Take 04/27 Continued (DME) Oxygen Home Liters Per Minute See Rx Instructions .Route Qty: 1 0RF Rx Instructions: Oxygen at 2lpm via NC with activity and sleep ROMAN 99 dapagliflozin propanediol [Farxiga] 10 mg tablet 10 mg PO DAILY Qty: 90 3RF Dulera 100-5 mcg/actuation HFA aerosol inhaler 2 puff inhalation BID Qty: 3 4RF Rx Instructions: per DC last released 09/21/23, set to 05/03/24 atorvastatin 20 mg tablet 20 mg PO UD Rx Instructions: per list from DC 40 mg: half tab (20mg) po hs. Status= on hold Eliquis 5 mg tablet 2.5 mg PO BID pantoprazole 40 mg tablet,delayed release (DR/EC) 40 mg PO BID Qty: 180 3RF lisinopril 5 mg tablet 5 mg PO DAILY PreserVision AREDS 2,148 mcg-113 mg-45 mg-17.4mg Tablet 1 tab PO BID Rx Instructions: administer with AM and PM meals metoprolol succinate 100 mg Tablet Extended Release 24 Hr 50 mg PO BID ciclopirox 8 % Solution See Rx Instructions .ROUTE .COMPLEX Rx Instructions: Per DC med list status= on hold. Apply a small amount to skin every day, apply topically over affected toenail and surrounding skin. Apply daily over previous coat. After 7 days, remove with rubbing alcohol and continue cycle for tinea unguium. ascorbic acid (vitamin C) 500 mg Tablet 250 mg PO DAILY ferrous sulfate 325 mg (65 mg iron) Tablet 325 mg PO DAILY lidocaine 5 % Adhesive Patch,Medicated 1 patch TOPICAL DAILY Rx Instructions: per DC last released 06/20/23, rx 03/23/24 leave on most painful area for up to 12 hrs albuterol sulfate 90 mcg/actuation Hfa Aerosol Inhaler 2 puff INHALATION UD PRN (Reason: SOB/Wheezing) Rx Instructions: Per med list from [facility], this medication is currently on hold. Original Directions: 2 puffs q6h PRN. Rx set to 05/03/24 calcitriol 0.25 mcg Capsule 0.25 mcg PO 3XWK Rx Instructions: per DC list 04/12/24 emollient Lubricant 1 ea TOPICAL DAILY Rx Instructions: last released 06/21/23, rx 02/12/24 cyanocobalamin (vitamin B-12) 500 mcg Tablet 500 mcg PO QAM Qty: 30 0RF thiamine HCl (vitamin B1) 100 mg Tablet 100 mg PO BID Qty: 60 0RF magnesium oxide 400 mg magnesium capsule 400 mg PO DAILY Qty: 30 0RF Discharge Orders: Discharge Order (Routine); Ordered 04/26/24 Ordered By: Karie Baker Admission Data Admit Date/Time: 04/24/24 12:58 Attending Provider: Juju Seth Admit Provider: Art Shearer Primary Care Provider: Mir Francis Other Providers: Art Shearer; [facility] Other Interventions: Discharge Summary Assessment (RN) Last Done: 04/26/24 10:49 Supervising Physician Co-Signing Physician Notes Attending Physician Supervision Note: I independently interviewed and examined the patient and verified the mathur history and physical, reviewed labs and image studies and agree with findings and care plan noted above. Resident Activity Tracking Resident Involvement: Resident Care Provided Care Provided: Adult Hospital Medicine
[2024-04-26 10:54] VITALS: RESP 18; O2SAT 91
[2024-04-26 11:25] VITALS: BP 174/94; PULSE 84
[2024-04-26] MEDS: INFLUENZA VACC TS2024-25(65y+)/PF (IIV3) 0.5mL Syr IM ONE (11:29)
== END 2024-04-26 11:49 | disposition home or self-care (01) | DRG 190 ==
LOC: ED 10:42 → EDINP 12:58 → SUATTDRO 12:58 → 4W 15:35

== ENCOUNTER 2024-06-15 10:32 | Inpatient (IN) ==
--- NOTE | 2024-06-15 11:28 | Emergency Department Note ---
Impression & Plan Hypoxia, Influenza A, Shortness of breath ED Provider Note NAME: NADIA HOLLIS AGE: 83 SEX: M : 1940 ARRIVES VIA: Walk-In INFORMANT: Patient ED PROVIDER(S): Conner Foster DO CHIEF COMPLAINT: Cough congestion and shortness of breath HPI: Patient is a 83-year-old male with a past medical history of COPD, AAA, diabetes, SVT, tachybradycardia syndrome who presents to the ER for shortness of breath. Symptoms initially started about a week and a half ago. Patient denies any headache or chest pain. No belly pain. No nausea, vomiting, or diarrhea. No dysuria, urgency, or frequency. No other exacerbating or remitting factors. Patient notes that symptoms have been getting worse in regards to shortness of breath. When he exerts himself he drops down to 87%. ADDITIONAL HISTORY OBTAINED: Family present at bedside notes that his fevers have abated but notes that his pulse ox has been dropping. He does not wear oxygen during the day. Chronic Medical/Social Conditions Affecting Care: Per HPI PAST MEDICAL HISTORY:See Below PAST SURGICAL HISTORY:See Below FAMILY HISTORY:See Below SOCIAL HISTORY:See Below HOME MEDICATIONS:See Below ALLERGIES:See Below VITALS:See Below PHYSICAL EXAMINATION: GENERAL: Sitting up in bed, alert, persistent cough, chronically ill-appearing EYE EXAM: normal conjunctiva. OROPHARYNX: no exudate, no erythema, lips, buccal mucosa, and tongue normal and mucous membranes are moist NECK: supple, no nuchal rigidity, no adenopathy, non-tender LUNGS: Wheezing bilaterally. Normal chest wall mechanics HEART: no murmurs, S1 normal and S2 normal ABDOMEN: abdomen soft, non-tender, normo-active bowel sounds, no masses, no rebound or guarding. BACK: Back is symmetrical on inspection and there is no deformity, no midline tenderness, no CVA tenderness. SKIN: no rashes and no bruising UPPER EXTREMITIES: upper extremities are grossly normal. LOWER EXTREMITIES: No pitting edema. NEURO EXAM: Normal sensorium, cranial nerves II-XII grossly intact, normal speech, no gross weakness of arms, no gross weakness of legs. MEDICAL DECISION MAKING: Patient is an 83-year-old male who presents to the ER with above-stated complaint. IV was established and blood work was obtained. Labs show no significant leukocytosis or anemia. INR unremarkable. BMP with a creatinine of 1.9. T. bili was slightly up at 2. LFTs were unremarkable. Troponin negative. Influenza positive. Viral panel was otherwise negative. With exertion patient drops down to 87%. He was given neb treatments and prednisone IV. Patient was updated at bedside and discussed with the hospitalist for further evaluation management treatment. Consults/Care Managements Discussions: Per MDM Triage Nursing notes reviewed. Limited review of prior medical records performed Vital Signs: reviewed and remarkable for no significant abnormalities Differential diagnosis: Differential diagnoses includes but is not limited to pneumonia, bronchitis, COPD/Asthma exacerbation, pneumothorax, pulmonary embolism, congestive heart failure, acute coronary syndrome ER treatment provided: See below Diagnostics interpreted by me include EKG and cardiac monitoring as listed below: -Cardiac Monitoring: An order was placed for continuous cardiac monitoring. The monitor shows a rate of 80 with sinus rhythm. -ECG: Sinus rhythm rate 81 Normal axis No PVCs QTc 448 -Laboratory studies:Interpreted by me as stated above in MDM and shown below. 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 Chronic respiratory failure with hypoxia Nocturnal hypoxia Secondary hyperparathyroidism COVID-19 (Acute) Acute kidney injury superimposed on chronic kidney disease Multiple closed fractures of ribs of right side (Acute) Fall from standing (Acute) Colon cancer screening Lightheadedness History of hematuria Anemia due to chronic kidney disease Vitamin D deficiency resolved Acute kidney injury (Acute) Stage 3b chronic kidney disease History of loop recorder Sinus pause Elevated prostate specific antigen (PSA) Bladder neck contracture Hypersomnia Ex-smoker Exertional shortness of breath COPD with emphysema BPH NOS w ur obs/LUTS Neurogenic bladder Anticoagulant long-term use Acute kidney injury (Acute) Atrial fibrillation hx- pacemaker placed 07/05/23 currently on eliquis; dr. jimeenz, [facility] [place] COPD (chronic obstructive pulmonary disease) (Chronic) daily and prn inh Hypertension (Chronic) hx Medical History Sinus tachycardia Hx of tachycardia-bradycardia syndrome Secondary hyperparathyroidism HTN (hypertension) Hx of cancer of lung COPD (chronic obstructive pulmonary disease) Atrial fibrillation Anticoagulant long-term use Stage 3 chronic kidney disease Anemia due to chronic kidney disease Nocturnal hypoxia Chronic respiratory failure Esophageal dysphagia Pacemaker On home oxygen therapy SOB (shortness of breath) on exertion History of COVID-19 Neurogenic bladder Macular degeneration of right eye GERD (gastroesophageal reflux disease) Hyperlipidemia Self-catheterizes urinary bladder Glaucoma Surgical History Status post placement of cardiac pacemaker History of loop recorder Hx of hernia repair Hx of colonoscopy Hx of bilateral cataract extraction History of lobectomy of lung Hx of transurethral resection of prostate Family History Mother Lung cancer Diabetes Father Lung cancer Social History Smoking Status: Never smoker Tobacco Type: Cigarettes Age Started Using Tobacco: 20; Age Quit Using Tobacco: 67; packs per day: 2; Second Hand Exposure: No; Do You Dip or Chew Tobacco: No; Hx Alcohol Use: No Hx Substance Use: No Preferred Language: Croatian Communication Ability: Effective Hose Tender Required: No Beliefs That Will Affect Care: None marital status: Single Current Living Situation: Alone current occupational status: retired Feels Safe at Home: Yes Assistive Devices: None Allergies Allergies Allergy/AdvReac Type Severity Reaction Status Date / Time simvastatin [From Zocor] Allergy Unknown myalgia Verified 05/29/24 10:37 Home Meds Home Medications Medication Instructions Recorded Confirmed atorvastatin 20 mg tablet 20 mg PO HS 11/05/21 06/15/24 vitamins A,C,A-lwii-fsfdvw 2,148 1 tab PO BID 02/16/23 06/15/24 mcg-113 mg-45 mg-17.4 mg tablet (PreserVision AREDS) apixaban 5 mg tablet (Eliquis) 2.5 mg PO BID 05/30/23 06/15/24 ascorbic acid (vitamin C) 500 mg 250 mg PO DAILY 01/05/24 06/15/24 tablet ciclopirox 8 % topical solution 1 applic topical UD 01/05/24 06/15/24 ferrous sulfate 325 mg (65 mg 325 mg PO DAILY 01/05/24 06/15/24 iron) tablet lidocaine 5 % topical patch 1 patch topical UD 01/05/24 06/15/24 metoprolol succinate 100 mg 100 mg PO DAILY 01/05/24 06/15/24 tablet,extended release 24 hr lisinopril 5 mg tablet 5 mg PO DAILY 02/02/24 06/15/24 sulfamethoxazole 400 1 tab PO UD 06/15/24 06/15/24 mg-trimethoprim 80 mg tablet (Bactrim) Previous Rx's Medication Instructions Recorded Oxygen Home #1 ea 10/03/23 pantoprazole 40 mg tablet,delayed 40 mg PO BID #180 tabs 11/07/23 release cyanocobalamin (vitamin B-12) 500 500 mcg PO QAM #30 tabs 01/07/24 mcg tablet magnesium oxide 400 mg PO DAILY #30 caps 01/07/24 thiamine HCl (vitamin B1) 100 mg 100 mg PO BID #60 tabs 01/07/24 tablet dapagliflozin propanediol 10 mg 10 mg PO DAILY #90 tabs 04/23/24 tablet (Farxiga) albuterol sulfate 90 mcg/actuation 2 puff inhalation UD PRN 05/04/24 aerosol inhaler SOB/Wheezing #6.7 grams mometasone-formoterol HFA 100 2 puff inhalation BID #3 Inhalers 05/04/24 mcg-5 mcg/actuation aerosol inhaler (Dulera) calcitriol 0.25 mcg capsule 0.25 mcg PO 3XWK CKD #15 caps 05/09/24 Results & Data (ED) Vital Signs Vital Signs - 24 hr 06/15/24 10:57 06/15/24 11:30 06/15/24 11:34 Temperature 36.8 C Temperature Source Skin Pulse Rate 81 78 81 Pulse Rate from SpO2 Sensor 79 Respiratory Rate 20 21 Blood Pressure 136/86 Blood Pressure Mean 102 Pulse Oximetry 91 92 Pulse Oximetry [Exercises] Pulse Oximetry [Resting] Oxygen Delivery Method Room Air Room Air Sepsis Recent Fever Within 48 Hours No Sepsis New/Unexplained Change in Mental Status No Sepsis Action Taken by Nursing No Action Required 06/15/24 11:40 06/15/24 11:48 06/15/24 12:01 Temperature Temperature Source Pulse Rate 67 Pulse Rate from SpO2 Sensor 67 Respiratory Rate 20 Blood Pressure 171/101 H 151/75 H Blood Pressure Mean 117 119 Pulse Oximetry 91 Pulse Oximetry [Exercises] Pulse Oximetry [Resting] Oxygen Delivery Method Sepsis Recent Fever Within 48 Hours Sepsis New/Unexplained Change in Mental Status Sepsis Action Taken by Nursing 06/15/24 12:06 06/15/24 12:21 06/15/24 12:30 Temperature Temperature Source Pulse Rate 69 81 Pulse Rate from SpO2 Sensor 69 82 Respiratory Rate 19 22 Blood Pressure 128/66 Blood Pressure Mean 100 Pulse Oximetry 92 92 Pulse Oximetry [Exercises] Pulse Oximetry [Resting] Oxygen Delivery Method Sepsis Recent Fever Within 48 Hours Sepsis New/Unexplained Change in Mental Status Sepsis Action Taken by Nursing 06/15/24 12:33 06/15/24 14:18 06/15/24 14:27 Temperature Temperature Source Pulse Rate 70 65 Pulse Rate from SpO2 Sensor 69 64 Respiratory Rate 24 10 L Blood Pressure Blood Pressure Mean Pulse Oximetry 92 98 Pulse Oximetry [Exercises] 88 L Pulse Oximetry [Resting] 92 Oxygen Delivery Method Room Air Sepsis Recent Fever Within 48 Hours Sepsis New/Unexplained Change in Mental Status Sepsis Action Taken by Nursing 06/15/24 14:30 06/15/24 14:33 06/15/24 15:00 Temperature Temperature Source Pulse Rate 66 Pulse Rate from SpO2 Sensor 66 Respiratory Rate Blood Pressure 123/83 130/73 Blood Pressure Mean 104 97 Pulse Oximetry 98 Pulse Oximetry [Exercises] Pulse Oximetry [Resting] Oxygen Delivery Method Sepsis Recent Fever Within 48 Hours Sepsis New/Unexplained Change in Mental Status Sepsis Action Taken by Nursing 06/15/24 15:06 06/15/24 15:21 06/15/24 15:30 Temperature Temperature Source Pulse Rate 88 87 Pulse Rate from SpO2 Sensor 88 88 Respiratory Rate 21 21 Blood Pressure 169/94 H Blood Pressure Mean 100 Pulse Oximetry 92 90 Pulse Oximetry [Exercises] Pulse Oximetry [Resting] Oxygen Delivery Method Room Air Sepsis Recent Fever Within 48 Hours Sepsis New/Unexplained Change in Mental Status Sepsis Action Taken by Nursing 06/15/24 15:48 Temperature Temperature Source Pulse Rate 89 Pulse Rate from SpO2 Sensor 89 Respiratory Rate 25 H Blood Pressure Blood Pressure Mean Pulse Oximetry 91 Pulse Oximetry [Exercises] Pulse Oximetry [Resting] Oxygen Delivery Method Room Air Sepsis Recent Fever Within 48 Hours Sepsis New/Unexplained Change in Mental Status Sepsis Action Taken by Nursing Laboratory Data 06/15/24 11:40 06/15/24 11:40 Lab Results 06/15/24 06/15/24 Range/Units 11:30 11:40 WBC 11.14 H (4.8-10.8) K/ul RBC 5.42 (4.70-6.10) M/uL Hgb 16.5 (14.0-18.0) g/dl Hct 49.2 (42.0-52.0) % MCV 90.8 (80.0-100.0) fL MCH 30.4 (25.0-34.0) pg MCHC 33.5 (32.0-36.0) g/dL RDW Std Deviation 40.8 (36.4-46.3) fL RDW Coeff of Jacque 12.8 (11.5-14.5) % Plt Count 208 (130-400) K/uL MPV 9.6 (9.4-12.4) fL Immature Gran % (Auto) 0.6 % Neut % (Auto) 68.2 % Lymph % (Auto) 19.7 % [place] % (Auto) 10.8 % Eos % (Auto) 0.4 % Baso % (Auto) 0.3 % Neut # (Auto) 7.59 H (1.40-6.50) K/uL Lymph # (Auto) 2.20 (1.20-3.40) K/uL [place] # (Auto) 1.20 H (0.11-0.59) K/uL Eos # (Auto) 0.05 (0.00-0.50) K/uL Baso # (Auto) 0.03 (0.00-0.20) K/uL Immature Gran # (Auto) 0.07 (0.01-0.20) K/uL PT 12.0 (9.0-12.0) Seconds INR 1.1 (0.9-1.1) APTT 31 (21-31) Seconds PTT Ratio 1.2 Sodium 137 (136-145) mmol/L Potassium 4.7 (3.5-5.1) mmol/L Chloride 99 (98-107) mmol/L Carbon Dioxide 28 (21-32) mmol/L Anion Gap 10 (3-11) BUN 21 (6-23) mg/dl Creatinine 1.98 H (0.6-1.4) mg/dl Est Cr Clr Drug Dosing Not Reportable eGFR 33.31 BUN/Creatinine Ratio 10.6 (10-20) Glucose 101 H (70-99(Fasting)) mg/dl Calcium 10.4 H (8.6-10.3) mg/dl Total Bilirubin 2.1 H (0.2-1.0) mg/dl AST 15 (13-39) U/L ALT 13 (7-52) U/L Alkaline Phosphatase 122 H (34-104) U/L Troponin I High Sens 12.6 (0-20) pg/ml Total Protein 7.7 (6.0-8.3) gm/dl Albumin 4.6 (3.4-5.0) gm/dl Globulin 3.1 (2.5-4.0) gm/dl Albumin/Globulin Ratio 1.5 (0.9-2) Nasal Influ A H1 2009 PCR DETECTED A (NotDetected) Adenovirus (PCR) Not Detected (NotDetected) B. pertussis DNA (PCR) Not Detected (NotDetected) B.parapertussis DNA PCR Not Detected (NotDetected) C. pneumoniae DNA (PCR) Not Detected (NotDetected) Coronavirus OC43 (PCR) Not Detected (NotDetected) Coronavirus HKU1 (PCR) Not Detected (NotDetected) Coronavirus 229E (PCR) Not Detected (NotDetected) SARS-CoV-2 (PCR) Not Detected (NotDetected) Coronavirus NL63 (PCR) Not Detected (NotDetected) Human Metapneumovir PCR Not Detected (NotDetected) Influenza Type B (PCR) Not Detected (NotDetected) M. pneumoniae (PCR) Not Detected (NotDetected) Parainfluenza 1 (PCR) Not Detected (NotDetected) Parainfluenza 2 (PCR) Not Detected (NotDetected) Parainfluenza 3 (PCR) Not Detected (NotDetected) Parainfluenza 4 (PCR) Not Detected (NotDetected) RSV (PCR) Not Detected (NotDetected) Entero/Rhino (PCR) Not Detected (NotDetected) Administered Medications Discontinued Medications Albuterol (Albut/Ipratrop 3mg/0.5mg Neb 3 Ml Vial) 6 ml NEB NOW STA; Protocol Stop: 06/15/24 13:51 Last Admin: 06/15/24 14:21 Dose: 6 ml Documented By: BS Methylprednisolone (Methylprednisolone 125 Mg/2 Ml Vial) 40 mg IV NOW STA Stop: 06/15/24 13:51 Last Admin: 06/15/24 14:21 Dose: 40 mg Documented By: SANTA Imaging Data Radiologist's Impression: Chest X-Ray 06/15/24 11:03 XR chest 2V PA/lateral CLINICAL HISTORY: SOB, fever COMPARISON STUDY: 07/06/2023 FINDINGS: Stable pacemaker. Stable mild cardiomegaly without pulmonary vascular congestion. Stable prior operative change and pleural thickening on the left. No other consolidation or pleural effusion. No pneumothorax. IMPRESSION: No pneumonia seen. ACT 112: Negative or not required by law. Electronically signed by: Clint Davidson M.D. 06/15/2024 12:05 PM Discharge Plan Visit Data Chief Complaint: Tachycardia Stated Complaint: LOW OX/TACHYCARDIA WHEN MOVING ED Provider: Conner Foster Discharge Problem: Hypoxia, Influenza A, Shortness of breath Forms Stand Alone Forms: My [facility] [place] [employer] Prescriptions Prescriptions: No Action (DME) Oxygen Home Liters Per Minute See Rx Instructions .Route Qty: 1 0RF Rx Instructions: Oxygen at 2lpm via NC with activity and sleep ROMAN 99 dapagliflozin propanediol [Farxiga] 10 mg tablet 10 mg PO DAILY Qty: 90 3RF calcitriol 0.25 mcg capsule 0.25 mcg PO 3XWK Qty: 15 3RF Rx Instructions: mon,wed,fri per [place] list atorvastatin 20 mg tablet 20 mg PO HS Rx Instructions: per list from [place] 40 mg: half tab (20mg) po hs. Status= on hold Eliquis 5 mg tablet 2.5 mg PO BID albuterol sulfate 90 mcg/actuation HFA aerosol inhaler 2 puff INHALATION UD PRN (Reason: SOB/Wheezing) Qty: 6.7 3RF Dulera 100-5 mcg/actuation HFA aerosol inhaler 2 puff inhalation BID Qty: 3 1RF Rx Instructions: [facility]21[facility]23, set to 05/03/24 pantoprazole 40 mg tablet,delayed release (DR/EC) 40 mg PO BID Qty: 180 3RF lisinopril 5 mg tablet 5 mg PO DAILY PreserVision AREDS 2,148 mcg-113 mg-45 mg-17.4mg Tablet 1 tab PO BID Rx Instructions: administer with AM and PM meals metoprolol succinate 100 mg Tablet Extended Release 24 Hr 100 mg PO DAILY ciclopirox 8 % Solution 1 applic topical UD Rx Instructions: [facility] status= on hold. Apply a small amount to skin every day, apply topically over affected toenail and surrounding skin. Apply daily over previous coat. After 7 days, remove with rubbing alcohol and continue cycle for tinea unguium. ascorbic acid (vitamin C) 500 mg Tablet 250 mg PO DAILY ferrous sulfate 325 mg (65 mg iron) Tablet 325 mg PO DAILY lidocaine 5 % Adhesive Patch,Medicated 1 patch TOPICAL UD Rx Instructions: rx per [facility] list leave on most painful area for up to 12 hrs cyanocobalamin (vitamin B-12) 500 mcg Tablet 500 mcg PO QAM Qty: 30 0RF thiamine HCl (vitamin B1) 100 mg Tablet 100 mg PO BID Qty: 60 0RF magnesium oxide 400 mg magnesium capsule 400 mg PO DAILY Qty: 30 0RF sulfamethoxazole-trimethoprim [Bactrim] 400-80 mg tablet 1 tab PO UD Rx Instructions: 1 tab po bid. Not [facility] list [facility] Referrals Referrals: Mir Francis, [employer] [Primary Care Provider] -
--- NOTE | 2024-06-15 12:06 | XRay Report ---
XR chest 2V PA/lateral CLINICAL HISTORY: SOB, fever COMPARISON STUDY: 07/06/2023 FINDINGS: Stable pacemaker. Stable mild cardiomegaly without pulmonary vascular congestion. Stable pr ior operative change and pleural thickening on the left. No other consolidation or pleural effusion. No pneumothorax. IMPRESSION: No pneumonia seen. ACT 112: Negative or not required by law. Electronically signed by: Clint Davidson M.D. 06/15/2024 12:05 PM
[2024-06-15 12:10] LABS: Basophils # (auto) 0.03 K/uL (0.00-0.20); Basophils % (auto) 0.3 %; Eosinophils # (auto) 0.05 K/uL (0.00-0.50); Eosinophils % (auto) 0.4 %; Hematocrit (blood only) 49.2 % (42.0-52.0); Hemoglobin 16.5 g/dl (14.0-18.0); Immature Granulocytes # (auto) 0.07 K/uL (0.01-0.20); Immature Granulocytes % (auto) 0.6 %; Lymphocytes % (auto) 19.7 %; Mean Corpuscular Hemoglobin 30.4 pg (25.0-34.0); Mean Corpuscular Hgb Conc 33.5 g/dL (32.0-36.0); Mean Corpuscular Volume 90.8 fL (80.0-100.0); Mean Platelet Volume 9.6 fL (9.4-12.4); Monocytes % (auto) 10.8 %; Neutrophils # (auto) 7.59 K/uL (1.40-6.50); Neutrophils % (auto) 68.2 %; Platelet Count 208 K/uL (130-400); RDW Coefficient of Variation 12.8 % (11.5-14.5); RDW Standard Deviation 40.8 fL (36.4-46.3); Red Blood Count 5.42 M/uL (4.70-6.10); White Blood Count 11.14 K/ul (4.8-10.8)
[2024-06-15 12:24] LABS: Alanine Aminotransferase 13 U/L (7-52); Albumin Globulin Ratio 1.5 (0.9-2); Albumin Level 4.6 gm/dl (3.4-5.0); Alkaline Phosphatase 122 U/L (34-104); Anion Gap 10 (3-11); Aspartate Aminotransferase 15 U/L (13-39); BUN Creatinine Ratio 10.6 (10-20); Bilirubin,Total 2.1 mg/dl (0.2-1.0); Blood Urea Nitrogen 21 mg/dl (6-23); Calcium 10.4 mg/dl (8.6-10.3); Carbon Dioxide 28 mmol/L (21-32); Chloride 99 mmol/L (98-107); Globulin 3.1 gm/dl (2.5-4.0); Glucose 101 mg/dl (70-99(Fasting)); Potassium 4.7 mmol/L (3.5-5.1); Sodium 137 mmol/L (136-145); Total Protein 7.7 gm/dl (6.0-8.3)
[2024-06-15 12:31] LABS: Troponin I High Sensitivity 12.6 pg/ml (0-20)
[2024-06-15 12:34] LABS: INR 1.1 (0.9-1.1); Partial Thromboplastin Ratio 1.2; Partial Thromboplastin Time 31 Seconds (21-31)
[2024-06-15 12:52] LABS: Adenovirus PCR Not Detected (NotDetected); Bordetella parapertussis PCR Not Detected (NotDetected); Bordetella pertussis PCR Not Detected (NotDetected); Chlamydia pneumoniae PCR Not Detected (NotDetected); Coronavirus 229E PCR Not Detected (NotDetected); Coronavirus CoV-2 (COVID19)PCR Not Detected (NotDetected); Coronavirus HKU1 PCR Not Detected (NotDetected); Coronavirus NL63 PCR Not Detected (NotDetected); Coronavirus OC43PCR Not Detected (NotDetected); Human Metapneumovirus PCR Not Detected (NotDetected); Influenza A (H1 2009) PCR DETECTED (NotDetected); Influenza B PCR Not Detected (NotDetected); Mycoplasma pneumoniae PCR Not Detected (NotDetected); Parainfluenza Virus 1 PCR Not Detected (NotDetected); Parainfluenza Virus 2 PCR Not Detected (NotDetected); Parainfluenza Virus 3 PCR Not Detected (NotDetected); Parainfluenza Virus 4 PCR Not Detected (NotDetected); Respiratory Syncytial VirusPCR Not Detected (NotDetected); Rhinovirus/Enterovirus PCR Not Detected (NotDetected)
[2024-06-15] MEDS: methylPREDNISolone 125 MG/2 ML VIAL IV STA (14:21)
[2024-06-15] MEDS: ALBUT/IPRATROP 3MG/0.5MG NEB 3 ML VIAL NEB STA (14:21)
--- NOTE | 2024-06-15 14:44 | History & Physical Report ---
Date of Service June 15, 2024 Assessment & Plan (1) Influenza A: Plan: Camilo is an 83-year-old male with a past medical history of COPD, DM, CKD, AAA, neurogenic bladder, A-fib on apixaban who presents with increased wheezing, dyspnea, and exertional hypoxia of 1-1.5 weeks and is flu a positive he is admitted for treatment COPD exacerbation due to flu without evidence of superimposed pneumonia Acute hypoxic respiratory failure due to flu - Does describe double sickening with initial improvement then sudden worsening and has a leukocytosis. Covered for possible secondary pna with rocephin/azithro. Influenza H1 2009 positive Chest x-ray without evidence of superimposed lobar pneumonia Symptom onset about a week and a half ago. Progressive shortness of breath and wheezing. Significant wheezing in the ER and desaturates to mid 80s with any attempted exertion. Tamiflu is indicated due to flu A requiring hospital admission, ordered Continue COPD treatment and supportive respiratory care as otherwise noted Acute COPD exacerbation With exacerbation due to flu Flutter valve, incentive spirometry Titrate oxygen goal greater than 89% Continue home inhaler/formulary equivalent Xopenex every 2 hours as needed due to history of tachycardia/A-fib. Alternate with DuoNeb every 4-6 hours as needed Continue methylprednisolone 40 mg twice daily, wean to daily and prednisone taper as clinically tolerated/indicated Atrial fibrillation EKG on admission normal sinus rhythm, regular rate and rhythm Continue apixaban Continue metoprolol 50 mg twice daily Hypertension Continue metoprolol, lisinopril CKD 3 Baseline creatinine approximately 2.02.4 Admitting creatinine 1.98 No VIDYA on admission. Renally dose medications as needed. Trend BMP daily DM2 No history of insulin dependence. Dapagliflozin held on admission Goal BSG 339041 Basal bolus with pharmacy glycemic consult due to concurrent steroids Glucose checks AC/at bedtime Chronic stable issues: AAA: On surveillance, follows with [facility] [place] last 07/2023. Continue surveillance. Avoid all fluoroquinolones. 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 EKG on admission is as normal sinus rhythm without pacing. 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 Cough, shortness of breath. Initially got better fater a few days, then suddenly got worse. coughing up white phlegm. No fevers or chills no night sweats +worsened wheezing +fatigue No diarrhea No chest pain Medical History: Reviewed Medications: Reviewed Surgical History: Reviewed Family history: Reviewed Allergies: Reviewed Social History: Denies tobacco/etoh use Code Status: Full Allergies Allergy/AdvReac Type Severity Reaction Status Date / Time simvastatin [From Zocor] Allergy Unknown myalgia Verified 05/29/24 10:37 Home Medications Medication Instructions Recorded Confirmed Type atorvastatin 20 mg tablet 20 mg PO HS 11/05/21 06/15/24 History vitamins A,C,F-wnff-gdadzu 2,148 1 tab PO BID 02/16/23 06/15/24 History mcg-113 mg-45 mg-17.4 mg tablet (PreserVision AREDS) apixaban 5 mg tablet (Eliquis) 2.5 mg PO BID 05/30/23 06/15/24 History Oxygen Home #1 ea 10/03/23 05/29/24 Rx pantoprazole 40 mg tablet,delayed 40 mg PO BID #180 tabs 11/07/23 06/15/24 Rx release ascorbic acid (vitamin C) 500 mg 250 mg PO DAILY 01/05/24 06/15/24 History tablet ciclopirox 8 % topical solution 1 applic topical UD 01/05/24 06/15/24 History ferrous sulfate 325 mg (65 mg 325 mg PO DAILY 01/05/24 06/15/24 History iron) tablet lidocaine 5 % topical patch 1 patch topical UD 01/05/24 06/15/24 History metoprolol succinate 100 mg 100 mg PO DAILY 01/05/24 06/15/24 History tablet,extended release 24 hr cyanocobalamin (vitamin B-12) 500 500 mcg PO QAM #30 tabs 01/07/24 06/15/24 Rx mcg tablet magnesium oxide 400 mg PO DAILY #30 caps 01/07/24 06/15/24 Rx thiamine HCl (vitamin B1) 100 mg 100 mg PO BID #60 tabs 01/07/24 06/15/24 Rx tablet lisinopril 5 mg tablet 5 mg PO DAILY 02/02/24 06/15/24 History dapagliflozin propanediol 10 mg 10 mg PO DAILY #90 tabs 04/23/24 06/15/24 Rx tablet (Farxiga) albuterol sulfate 90 mcg/actuation 2 puff inhalation UD PRN 05/04/24 06/15/24 Rx aerosol inhaler SOB/Wheezing #6.7 grams mometasone-formoterol HFA 100 2 puff inhalation BID #3 Inhalers 05/04/24 06/15/24 Rx mcg-5 mcg/actuation aerosol inhaler (Dulera) calcitriol 0.25 mcg capsule 0.25 mcg PO 3XWK CKD #15 caps 05/09/24 06/15/24 Rx sulfamethoxazole 400 1 tab PO UD 06/15/24 06/15/24 History mg-trimethoprim 80 mg tablet (Bactrim) Past Med/Surg History Problem List (Updated 06/15/24 @ 14:40 by Sonny Goodson MD) Influenza A Acute exacerbation of chronic obstructive pulmonary disease (Acute) Diabetes mellitus Palpitations AAA (abdominal aortic aneurysm) without rupture ~8-10 yrs; recent eval C 08/09/23 Nonsustained ventricular tachycardia SVT (supraventricular tachycardia) Esophageal dysphagia 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, 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 Chronic respiratory failure with hypoxia Nocturnal hypoxia Secondary hyperparathyroidism COVID-19 (Acute) Acute kidney injury superimposed on chronic kidney disease Multiple closed fractures of ribs of right side (Acute) Fall from standing (Acute) Colon cancer screening Lightheadedness History of hematuria Anemia due to chronic kidney disease Vitamin D deficiency resolved Acute kidney injury (Acute) Stage 3b chronic kidney disease History of loop recorder Sinus pause Elevated prostate specific antigen (PSA) Bladder neck contracture Hypersomnia Ex-smoker Exertional shortness of breath COPD with emphysema BPH NOS w ur obs/LUTS Neurogenic bladder Anticoagulant long-term use Acute kidney injury (Acute) Atrial fibrillation hx- pacemaker placed 07/05/23 currently on eliquis; dr. jimenez, [facility] [place] COPD (chronic obstructive pulmonary disease) (Chronic) daily and prn inh Hypertension (Chronic) hx Medical History Sinus tachycardia Hx of tachycardia-bradycardia syndrome Secondary hyperparathyroidism HTN (hypertension) Hx of cancer of lung COPD (chronic obstructive pulmonary disease) Atrial fibrillation Anticoagulant long-term use Stage 3 chronic kidney disease Anemia due to chronic kidney disease Nocturnal hypoxia Chronic respiratory failure Esophageal dysphagia Pacemaker On home oxygen therapy SOB (shortness of breath) on exertion History of COVID-19 Neurogenic bladder Macular degeneration of right eye GERD (gastroesophageal reflux disease) Hyperlipidemia Self-catheterizes urinary bladder Glaucoma Surgical History Status post placement of cardiac pacemaker History of loop recorder Hx of hernia repair Hx of colonoscopy Hx of bilateral cataract extraction History of lobectomy of lung Hx of transurethral resection of prostate Family History Mother Lung cancer Diabetes Father Lung cancer Social History Smoking Status: Never smoker Tobacco Type: Cigarettes Age Started Using Tobacco: 20; Age Quit Using Tobacco: 67; packs per day: 2; Second Hand Exposure: No; Do You Dip or Chew Tobacco: No; Hx Alcohol Use: No Hx Substance Use: No Preferred Language: Peruvian Communication Ability: Effective Glue Reel Operator Required: No Beliefs That Will Affect Care: None marital status: Single Current Living Situation: Alone current occupational status: retired Feels Safe at Home: Yes Assistive Devices: None Physical Exam Physical Exam: General: A&Ox3. NAD. Cooperative. HEENT: Atraumatic, normocephalic. Pulm: +scattered expiratory wheezing. Diminished in the bases. Symmetrical chest rise. No increased work of breathing. No respiratory distress. Cardiac: RRR, -mrg. Radial pulses intact and symmetrical. Abdominal: Nontender, nondistended, soft. BS present. Results & Data Results & Data Vital Signs (Past 12 Hours) Vital Signs Temp Pulse Resp BP Pulse Ox Pulse Ox Pulse Ox 06/15/24 14:18 88 L 92 06/15/24 12:33 70 24 92 06/15/24 12:30 128/66 06/15/24 12:21 81 22 92 06/15/24 12:06 69 19 92 06/15/24 12:01 151/75 H 06/15/24 11:48 67 20 91 06/15/24 11:40 171/101 H 06/15/24 11:34 81 06/15/24 11:30 78 21 92 06/15/24 10:57 36.8 C 81 20 136/86 91 O2 Del Method 06/15/24 14:18 Room Air 06/15/24 12:33 06/15/24 12:30 06/15/24 12:21 06/15/24 12:06 06/15/24 12:01 06/15/24 11:48 06/15/24 11:40 06/15/24 11:34 06/15/24 11:30 Room Air 06/15/24 10:57 Room Air PG Care Time/CCT Total # of Minutes Spent Total Time Spent with Patient: Total time spent is greater than 50% in coordination of care (as documented) at patient's floor/unit and/or counseling patient: Coding Level of Care Code 09128 INT INP/OBS CARE 3/75MIN Diagnoses Influenza A J10.1 Acute exacerbation of chronic obstructive pulmonary disease J44.1 AAA (abdominal aortic aneurysm) without rupture I71.40 Stage 3b chronic kidney disease N18.32 COPD with emphysema J43.9 BPH NOS w ur obs/LUTS N40.1
[2024-06-15] MEDS ORDERED: GLUCOSE 10 TAB/TUBE PO PRN (16:27)
[2024-06-15] MEDS ORDERED: DEXTROSE 50% 50 ML SYRINGE IV PRN (16:27)
[2024-06-15] MEDS ORDERED: GLUCOSE 40% GEL 15 GM TUBE PO PRN (16:27)
[2024-06-15] MEDS ORDERED: GLUCAGON FOR INJ 1 MG VIAL SQ PRN (16:27)
[2024-06-15] MEDS ORDERED: PHARMACY GLYCEMIC MGMT CONSULT PRN (16:27)
[2024-06-15] MEDS ORDERED: CARBOHYDRATES FOR HYPOGLYCEMIA PO PRN (16:27)
[2024-06-15] MEDS: OSELTAMIVIR PHOSPHATE 75 MG CAP PO STA (17:06)
[2024-06-15] MEDS: AZITHROMYCIN 250 MG TAB PO ONE (17:07)
[2024-06-15] MEDS: cefTRIAXone SODIUM 2,000 MG/50 ML BAG IV SCH (17:09)
[2024-06-15] MEDS: INSULIN ASPART PER UNIT CHARGE SC SCH (18:28)
[2024-06-15] MEDS ORDERED: POLYETHYLENE (MIRALAX) 17 GM PACK PO PRN (19:24)
[2024-06-15] MEDS ORDERED: ACETAMINOPHEN 325 MG TAB PO PRN (19:24)
[2024-06-15] MEDS ORDERED: LANTUS PER UNIT CHARGE SQ SCH (21:00)
[2024-06-15] MEDS: APIXABAN 2.5 MG TAB PO SCH (21:54)
[2024-06-15] MEDS: guaiFENesin 600 MG TABCR PO SCH (21:54)
[2024-06-15] MEDS: methylPREDNISolone 40 MG in SYRINGE 0 ML IV SCH (21:55)
[2024-06-15] MEDS: THIAMINE HCL 100 MG TAB PO SCH (21:56)
[2024-06-15] MEDS: PANTOprazole 40 MG TAB PO SCH (21:56)
--- NOTE | 2024-06-15 22:56 | Electrocardiogram Report ---
Test Reason : Blood Pressure : */* mmHG Vent. Rate : 81 BPM Atrial Rate : 81 BPM P-R Int : 134 ms QRS Dur : 66 ms QT Int : 386 ms P-R-T Axes : 77 44 57 degrees QTcB Int : 448 ms Normal sinus rhythm Normal ECG When compared with ECG of 24-Apr-2024 11:00, Criteria for Anterior infarct are no longer Present Confirmed by Rhett Kim ([id number]) on 06/15/2024 10:56:17 PM Referred By: REFERRED SELF Confirmed By: Rhett Kim
[2024-06-16] MEDS: COUGH DROP (SUGAR FREE) LOZ 24 LOZ/1 BOX BUCCAL PRN (02:31)
[2024-06-16 06:02] LABS: Hematocrit (blood only) 43.5 % (42.0-52.0); Hemoglobin 14.7 g/dl (14.0-18.0); Immature Granulocytes # (auto) 0.03 K/uL (0.01-0.20); Immature Granulocytes % (auto) 0.6 %; Lymphocytes # (auto) 0.79 K/uL (1.20-3.40); Lymphocytes % (auto) 15.6 %; Mean Corpuscular Hgb Conc 33.8 g/dL (32.0-36.0); Mean Corpuscular Volume 88.8 fL (80.0-100.0); Mean Platelet Volume 9.4 fL (9.4-12.4); Monocytes # (auto) 0.16 K/uL (0.11-0.59); Monocytes % (auto) 3.2 %; Neutrophils # (auto) 4.08 K/uL (1.40-6.50); Neutrophils % (auto) 80.6 %; Platelet Count 189 K/uL (130-400); RDW Coefficient of Variation 12.6 % (11.5-14.5); RDW Standard Deviation 41.1 fL (36.4-46.3); White Blood Count 5.06 K/ul (4.8-10.8)
[2024-06-16 06:21] LABS: BUN Creatinine Ratio 13.6 (10-20); Calcium 9.1 mg/dl (8.6-10.3); Potassium 4.4 mmol/L (3.5-5.1)
[2024-06-16 08:01] LABS: Estimated Average Glucose 123 mg/dl; Hemoglobin A1C 5.9 % (4.5-5.6)
[2024-06-16] MEDS: FLUTICASONE/VILANTEROL 100/25MCG 14 PUFFS/INHALER INH SCH (08:27)
[2024-06-16] MEDS: AZITHROMYCIN 250 MG TAB PO SCH (08:27)
[2024-06-16] MEDS: ASCORBIC ACID 500 MG TAB PO SCH (08:28)
[2024-06-16] MEDS: lisinopril 5 MG TAB PO SCH (08:29)
[2024-06-16] MEDS: CYANOCOBALAMIN (B-12) 500 MCG TABLET PO SCH (08:29)
[2024-06-16] MEDS: FERROUS SULFATE 325 MG TAB PO SCH (08:29)
[2024-06-16] MEDS: MAGNESIUM OXIDE 400 MG TAB PO SCH (08:29)
[2024-06-16] MEDS: OSELTAMIVIR PHOSPHATE SUSP 30 MG/5 ML UDP PO SCH (08:36)
--- NOTE | 2024-06-16 10:25 | Hospitalist Progress Note ---
"Date of Service June 16, 2024 Assessment & Plan (1) Influenza A: (2) Acute exacerbation of chronic obstructive pulmonary disease: (3) AAA (abdominal aortic aneurysm) without rupture: (4) Stage 3b chronic kidney disease: (5) COPD with emphysema: (6) BPH NOS w ur obs/LUTS: (7) Diabetes mellitus: Plan Camilo is an 83-year-old male with a past medical history of COPD, DM, CKD, AAA, neurogenic bladder, A-fib (on apixaban) who presents with increased wheezing, dyspnea, and exertional hypoxia of 1-1.5 weeks. Initial evaluation shows Influenza, CXR without superimposed PNA. Admitted for rreatment COPD exacerbation due to flu. Acute hypoxic respiratory failure due to Influena A | COPD exacerabtion Does describe double sickening with initial improvement then sudden worsening and has a leukocytosis. Covered for possible secondary pna with rocephin/az ithro. Initiated on Methylprednisolone 40mg q12. No wheezing on exam, convert to PO prednisone taper Continue tamiflu Supportive care: IS, FV, prn nebs, mucinex Wean O2 as able, baseline is 2L HS Mild lft elevations, suspect related to viral illness. AM CMP Atrial fibrillation/ hx of tachy jourdan syndrome EKG on admission normal sinus rhythm, regular rate and rhythm Continue apixaban and metoprolol 50 mg twice daily. Pacer in place. DM2 Home regimen: Dapagliflozin held on admission BSG ACHS. Pharmacy glycemic consult Hypertension Continue metoprolol, lisinopril CKD 3 - currently at baseline creatinine approximately 2.02.4 AAA: On surveillance, follows with [facility] [place]23. Continue surveillance. Avoid all fluoroquinolones. Disposition: continued inpatient stay, weaning oxygen DVT ppx: Eliquis Admission and Anticipated Discharge Date Admission Date: June 15, 2024 Supervising Physician Co-Signing Physician Notes Attending Attestation - Chart reviewed, care plan d/w LUBNA Saul. I agree w/ the mathur components of her documentation. Chas Longoria MD Subjective Patient seen lying in bed, no family present at bedside. Reports feeling about the same as yesterday. Doesnt necessarily feel short of breath but knows his oxygen drops when he is exerting. Pulse ox showing 87-88 on room air so 2L of O2 replaced. denies weakness with ambulation normally wears 2L NC HS Review of Systems Review of Systems: All systems reviewed & are unremarkable except as noted in Subjective Physical Exam Physical Exam: General: NAD, VS as above Resp: normal respiratory effort, diminished in the bases CV: RRR, no murmur, Abd: normal bowel sounds, non tender, soft Extremities: Moves all extremities, no edema Neuro: A&O x3, Skin: intact, no lesions noted Results & Data Results & Data Vital Signs (Past 12 Hours) Vital Signs Temp Pulse Resp BP Pulse Ox O2 Del Method O2 Flow Rate 06/16/24 08:04 90 Room Air 06/16/24 07:44 98.1 F 90 20 163/87 H 91 Nasal Cannula 2 Laboratory Results cBC and chemistry reviewed hemoglobin A1c reviewed PG Care Time/CCT Total # of Minutes Spent Total Time Spent with Patient: Total time spent is greater than 50% in coordination of care (as documented) at patient's floor/unit and/or counseling patient: Coding Level of Care Code 05133 SUB INP/OBS CARE 3/50MIN Diagnoses Influenza A J10.1 Acute exacerbation of chronic obstructive pulmonary disease J44.1 AAA (abdominal aortic aneurysm) without rupture I71.40 Stage 3b chronic kidney disease N18.32 COPD with emphysema J43.9 BPH NOS w ur obs/LUTS N40.1 Diabetes mellitus E11.9"
[2024-06-16] MEDS: METOPROLOL SUCC 50MG EXT REL TAB PO SCH ×2 (10:33→12:12)
--- NOTE | 2024-06-16 14:21 | Pharmacy Report ---
Pharmacy Glycemic Short Note 2 - Date of Service June 16, 2024 - Glycemic Short BSG Results (Last 24 hours): 06/15/24 06/15/24 06/15/24 16:50 20:17 21:51 Glucose POC Glucose 99 202 H 169 H 06/16/24 06/16/24 06/16/24 05:45 07:37 11:46 Glucose 157 H POC Glucose 140 H 221 H OUTPATIENT ANTIDIABETIC REGIMEN: * dapagliflozin 10 mg once daily ASSESSMENT: * 83 year admitted with flu/COPD exacerbation. Pharmacy consulted for glycemic management. Patient is type 2 diabetic managed on oral agent outpatient. Started on solumedrol on admission. Received dose this AM, lunch BSG trending upward >200 - plan to tighten novolog. Steroids now changing to prednisone 40 mg once daily. Reasonable to continue same parameters for now. PLAN FOR INPATIENT GLYCEMIC CONTROL: * Hold outpatient oral diabetes medications * Basal insulin * Lantus - hold * Bolus insulin * NovoLog per scale ACHS or Q6hrs while NPO * Goal Range: Low 120 mg/dL - High 160 mg/dL * Correction Factor: 30 mg/dL/unit * Nutritional / Prandial insulin per carb ratio of 1 unit per 10 grams CHO consumed
[2024-06-16] MEDS: ALBUT/IPRATROP 3MG/0.5MG NEB 3 ML VIAL NEB PRN (15:42)
[2024-06-16] MEDS: LEVALBUTEROL 1.25 MG/3 ML NEB NEB PRN (18:21)
[2024-06-17 06:38] LABS: Albumin Globulin Ratio 1.3 (0.9-2); Albumin Level 3.7 gm/dl (3.4-5.0); BUN Creatinine Ratio 19.2 (10-20); Bilirubin,Total 0.5 mg/dl (0.2-1.0); Calcium 9.4 mg/dl (8.6-10.3); Creatinine Clr Calc Pharmacy 31.2 ml/min; Globulin 2.8 gm/dl (2.5-4.0); Potassium 5.1 mmol/L (3.5-5.1); Total Protein 6.5 gm/dl (6.0-8.3)
[2024-06-17 07:38] VITALS: BP 154/79; PULSE 68; RESP 16; TEMP 97.7; O2SAT 90
[2024-06-17] MEDS: predniSONE 20 MG TAB PO SCH (08:33)
--- NOTE | 2024-06-17 09:29 | Discharge Summary ---
"Discharge Summary Date of Service June 17, 2024 Principal Dx & Hospital Course #1 = Principal Diagnosis (1) Influenza A: (2) Acute exacerbation of chronic obstructive pulmonary disease: (3) AAA (abdominal aortic aneurysm) without rupture: (4) Stage 3b chronic kidney disease: (5) COPD with emphysema: (6) BPH NOS w ur obs/LUTS: (7) Diabetes mellitus: Plan Acute hypoxic respiratory failure due to Influenza A | COPD exacerbation Edaraceli is an 83-year-old male with a past medical history of COPD, DM, CKD, AAA, neurogenic bladder, A-fib (on apixaban) who presents with increased wheezing, dyspnea, and exertional hypoxia of 1-1.5 weeks. Initial evaluation shows Influenza, CXR without superimposed PNA. Admitted for treatment COPD exacerbation due to flu. Patient responded well to IV steroids, rocephin, azithromycin and tamiflu. He maintained room air, 95-98% during my evaluation day of discharge. Took a walk around the unit and O2 did not drop below 92%. LFTs have returned to normal. Discharge to home with prednisone taper, course of tamiflu, azithromycin, Augmentin and Mucinex. Albuterol inhaler prescription provided as well. COntinue HS O2 as previously prescribed. Atrial fibrillation/ hx of tachy jourdan syndrome - Continue apixaban and metoprolol 50 mg twice daily. Pacer in place. DM2 - continue home dapagliflozin Hypertension Continue metoprolol, lisinopril CKD 3 - currently at baseline creatinine approximately 2.02.4 AAA: On surveillance, [place] [facility]. Continue surveillance. Avoid all fluoroquinolones. 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 Cough, shortness of breath. Initially got better fater a few days, then suddenly got worse. coughing up white phlegm. No fevers or chills no night sweats +worsened wheezing +fatigue No diarrhea No chest pain Medical History: Reviewed Medications: Reviewed Surgical History: Reviewed Family history: Reviewed Allergies: Reviewed Social History: Denies tobacco/etoh use Code Status: Full Discharge Exam General: NAD, VS as above Resp: normal respiratory effort, clear to auscultation, no wheezing CV: RRR, no murmur, Abd: normal bowel sounds, non tender, soft Extremities: Moves all extremities, no edema Neuro: A&O x3, Skin: intact, no lesions noted Discharge Plan Discharge Items Patient Disposition: Home - Self-Care Reason For Visit: AHRF, AoC COPD, flu Discharge Diagnosis: COPD exacerbation, flu A Activity: Resume your previous activity Weightbearing: Full weightbearing Non-emergency contact: Primary Care Provider Call non-emergency contact if: you have any medication questions, your symptoms worsen and your temperature is above 101 Follow-up/Referrals: Mir Francis, [employer]ER-C [Primary Care Provider] - (Follow up within one week ) Diet: Carb Consistent or DM2 and Heart Healthy Addtl Attending Provider Instructions: Mr. Gracia, Ag were hospitalized after having shortness of breath. This was found to be from a COPD exacerbation and the flu. You were treated with tamiflu for the Flu and antibiotics for the COPD exacerbation. Recommendations: * Continue Tamiflu for 3.5 more days, first dose PM 3/2 * Continue azithromycin for 3 more days, first dose AM 3/3 * Continue Augmentin for 3.5 days, take with food, first dose PM 3/3 * Continue prednisone taper as prescribed, take in the mornings * I have sent in Mucinex (guaifenesin) to help with congestion, to take for the next 5 days. This is an over the counter medication, so sometimes the insurance does not cover it, if this is the case, please purchase over the counter - generic brand is fine. * Albuterol inhaler as needed for shortness of breath or wheezing * Continue to use your flutter valve and incentive spirometer No changes to your home medications. Activity: You can do normal everyday activities as your body allows. Take rest breaks if you feel tired. Do not overexert. Stop activity if you have pain, shortness of breath or feel dizzy. Follow-up appointments: Make an appointment with your primary care physician within one week of discharge. A copy of this summary will be sent to them. Every time you see your primary care physician, or any other doctor, bring your medication list, and a list of questions. CONTACT YOUR PRIMARY CARE PROVIDER if you experience any of the following: Shortness of breath or difficulty breathing Fevers or chills Feeling tired with normal activity or experiencing dizziness or fainting Difficulty following your treatment plan, or difficulty taking medications CALL 911 OR GO TO THE EMERGENCY DEPARTMENT if you experience any of the following: Severe abdominal pain or nausea/vomiting Severe chest pain, or chest pain that radiates (moves) to your jaw or arm Sudden, severe shortness of breath or difficulty breathing Thank you for allowing us to participate in your care. Charline Saul PA-C Pending Studies at Discharge: No Stand-Alone Forms: My [facility]dy, Smoking Cessation Medications and DC Order Prescriptions: New azithromycin 250 mg Tablet 250 mg PO QAM Qty: 3 0RF oseltamivir [Tamiflu] 30 mg capsule 30 mg PO BID Qty: 7 0RF prednisone 20 mg Tablet See Taper PO QAM Qty: 8 0RF Taper: Taper, Blank 40 mg DAILY for 2 Days 20 mg DAILY for 3 Days 10 mg DAILY for 2 Days guaifenesin [Mucinex] 600 mg Tablet Extended Release 12hr 1,200 mg PO BID 5 Days Qty: 20 0RF amoxicillin-pot clavulanate 875-125 mg tablet 1 tab PO BID Qty: 7 0RF Continued (DME) Oxygen Home Liters Per Minute See Rx Instructions .Route Qty: 1 0RF Rx Instructions: Oxygen at 2lpm via NC with activity and sleep ROMAN 99 dapagliflozin propanediol [Farxiga] 10 mg tablet 10 mg PO DAILY Qty: 90 3RF calcitriol 0.25 mcg capsule 0.25 mcg PO 3XWK Qty: 15 3RF Rx Instructions: mon,wed,fri per [place] list atorvastatin 20 mg tablet 20 mg PO HS Rx Instructions: per list from [place] 40 mg: half tab (20mg) po hs. Status= on hold Eliquis 5 mg tablet 2.5 mg PO BID Dulera 100-5 mcg/actuation HFA aerosol inhaler 2 puff inhalation BID Qty: 3 1RF Rx Instructions: per [place] last released 09/21/23, set to 05/03/24 pantoprazole 40 mg tablet,delayed release (DR/EC) 40 mg PO BID Qty: 180 3RF lisinopril 5 mg tablet 5 mg PO DAILY PreserVision AREDS 2,148 mcg-113 mg-45 mg-17.4mg Tablet 1 tab PO BID Rx Instructions: administer with AM and PM meals metoprolol succinate 100 mg Tablet Extended Release 24 Hr 100 mg PO DAILY ciclopirox 8 % Solution 1 applic topical UD Rx Instructions: Per [place] med list status= on hold. Apply a small amount to skin every day, apply topically over affected toenail and surrounding skin. Apply daily over previous coat. After 7 days, remove with rubbing alcohol and continue cycle for tinea unguium. ascorbic acid (vitamin C) 500 mg Tablet 250 mg PO DAILY ferrous sulfate 325 mg (65 mg iron) Tablet 325 mg PO DAILY lidocaine 5 % Adhesive Patch,Medicated 1 patch TOPICAL UD Rx Instructions: rx per [place] list leave on most painful area for up to 12 hrs cyanocobalamin (vitamin B-12) 500 mcg Tablet 500 mcg PO QAM Qty: 30 0RF thiamine HCl (vitamin B1) 100 mg Tablet 100 mg PO BID Qty: 60 0RF magnesium oxide 400 mg magnesium capsule 400 mg PO DAILY Qty: 30 0RF Changed albuterol sulfate 90 mcg/actuation HFA aerosol inhaler 2 puff INHALATION Q4H PRN (Reason: SOB/Wheezing) Qty: 6.7 0RF Discontinued sulfamethoxazole-trimethoprim [Bactrim] 400-80 mg tablet 1 tab PO UD Rx Instructions: 1 tab po bid. Not on list from [place] Discharge Orders: Discharge Order (Routine); Ordered 06/17/24 Ordered By: Charline Saul Admission Data Admit Date/Time: 06/15/24 16:17 Attending Provider: Chas Longoria Admit Provider: Sonny Goodson Primary Care Provider: Mir Francis Other Providers: Sonny Goodson; [facility],Hospital Hospital Stay Data Consultations 06/15/24 14:09 ED Decision to Admit Stat Diagnostic Imagining Performed Chest X-Ray 06/15/24 11:03 XR chest 2V PA/lateral CLINICAL HISTORY: SOB, fever COMPARISON STUDY: 07/06/2023 FINDINGS: Stable pacemaker. Stable mild cardiomegaly without pulmonary vascular congestion. Stable prior operative change and pleural thickening on the left. No other consolidation or pleural effusion. No pneumothorax. IMPRESSION: No pneumonia seen. ACT 112: Negative or not required by law. Electronically signed by: Clint Davidson M.D. 06/15/2024 12:05 PM Pending Results Patient Have Any Pending Studies at Discharge: No Discharge Instructions Given to Patient (Per Discharging Provider) Ag Moreno were hospitalized after having shortness of breath. This was found to be from a COPD exacerbation and the flu. You were treated with tamiflu for the Flu and antibiotics for the COPD exacerbation. Recommendations: * Continue Tamiflu for 3.5 more days, first dose PM 06/17 * Continue azithromycin for 3 more days, first dose AM 06/18 * Continue Augmentin for 3.5 days, take with food, first dose PM 06/18 * Continue prednisone taper as prescribed, take in the mornings * I have sent in Mucinex (guaifenesin) to help with congestion, to take for the next 5 days. This is an over the counter medication, so sometimes the insurance does not cover it, if this is the case, please purchase over the counter - generic brand is fine. * Albuterol inhaler as needed for shortness of breath or wheezing * Continue to use your flutter valve and incentive spirometer No changes to your home medications. Activity: You can do normal everyday activities as your body allows. Take rest breaks if you feel tired. Do not overexert. Stop activity if you have pain, shortness of breath or feel dizzy. Follow-up appointments: Make an appointment with your primary care physician within one week of discharge. A copy of this summary will be sent to them. Every time you see your primary care physician, or any other doctor, bring your medication list, and a list of questions. CONTACT YOUR PRIMARY CARE PROVIDER if you experience any of the following: Shortness of breath or difficulty breathing Fevers or chills Feeling tired with normal activity or experiencing dizziness or fainting Difficulty following your treatment plan, or difficulty taking medications CALL 911 OR GO TO THE EMERGENCY DEPARTMENT if you experience any of the following: Severe abdominal pain or nausea/vomiting Severe chest pain, or chest pain that radiates (moves) to your jaw or arm Sudden, severe shortness of breath or difficulty breathing Thank you for allowing us to participate in your care. Charline Saul PA-C Total Time Total Time Spent Total Time Spent (In Minutes): Time spent day of discharge 34 minutes including direct patient care, medication reconciliation, documentation, review of labs and images, and coordination of care. Coding Level of Care Code 25521 INP/OBS DISCH >30 MIN Diagnoses Influenza A J10.1 Acute exacerbation of chronic obstructive pulmonary disease J44.1 AAA (abdominal aortic aneurysm) without rupture I71.40 Stage 3b chronic kidney disease N18.32 COPD with emphysema J43.9 BPH NOS w ur obs/LUTS N40.1 Diabetes mellitus E11.9"
[2024-06-18] MEDS ORDERED: CALCITRIOL 0.25 MCG CAPSULE PO SCH (09:00)
== END 2024-06-17 11:03 | disposition home or self-care (01) | DRG 193 ==
LOC: ED 10:32 → 3E 16:17 → SUATTDRO 16:17 → 3E 18:40

== ENCOUNTER 2024-07-31 09:57 | Inpatient (IN) ==
--- NOTE | 2024-07-31 10:40 | Emergency Department Note ---
History of Present Illness General Chief complaint: Catheter Replacement Stated complaint: TROUBLE CATHERIZING Time Seen by Provider: 07/31/24 10:32 History of Present Illness This is an 83-year-old male that presents to the emergency department via private vehicle with complaints of "trouble urinating". The patient notes history of self cath x 10 years. He normally caths about 4 times per day however beginning last evening he notes pain with self cathing. Pain is in the penis when he attempts to cath. No pain without cathing. He does not void spontaneously. He does note last evening developed a fever around 56 PM that was 102 F. He denies any fever presently. No vomiting. No abdominal pain or back pain. Patient is here today noting trouble self cathing. He does note he just had blood work performed around 945 this morning. I did call our lab and this includes a renal profile, PSA, CBC. They will be resulting here shortly. Home Medications Medication Instructions Recorded Confirmed Type atorvastatin 20 mg tablet 20 mg PO HS 11/05/21 07/31/24 History vitamins A,C,N-iqro-eovkvj 2,148 1 tab PO BID 02/16/23 07/31/24 History mcg-113 mg-45 mg-17.4 mg tablet (PreserVision AREDS) apixaban 5 mg tablet (Eliquis) 2.5 mg PO BID 05/30/23 07/31/24 History Oxygen Home #1 ea 10/03/23 05/29/24 Rx ascorbic acid (vitamin C) 500 mg 250 mg PO DAILY 01/05/24 07/31/24 History tablet ciclopirox 8 % topical solution 1 applic topical UD 01/05/24 07/31/24 History ferrous sulfate 325 mg (65 mg 325 mg PO DAILY 01/05/24 07/31/24 History iron) tablet metoprolol succinate 100 mg 100 mg PO DAILY 01/05/24 07/31/24 History tablet,extended release 24 hr cyanocobalamin (vitamin B-12) 500 500 mcg PO QAM #30 tabs 01/07/24 07/31/24 Rx mcg tablet magnesium oxide 400 mg PO DAILY #30 caps 01/07/24 07/31/24 Rx thiamine HCl (vitamin B1) 100 mg 100 mg PO BID #60 tabs 01/07/24 07/31/24 Rx tablet lisinopril 5 mg tablet 5 mg PO DAILY 10/17/24 04/15/25 History dapagliflozin propanediol 10 mg 10 mg PO DAILY #90 tabs 04/23/24 07/31/24 Rx tablet (Farxiga) mometasone-formoterol HFA 100 2 puff inhalation BID #3 Inhalers 05/04/24 07/31/24 Rx mcg-5 mcg/actuation aerosol inhaler (Dulera) calcitriol 0.25 mcg capsule 0.25 mcg PO 3XWK CKD #15 caps 07/16/24 07/31/24 Rx albuterol sulfate 90 mcg/actuation 2 puff inhalation Q6H PRN 07/31/24 07/31/24 History aerosol inhaler SOB/Wheezing cholecalciferol (vitamin D3) 25 2,000 mcg PO DAILY 07/31/24 07/31/24 History mcg (1,000 unit) tablet (Vitamin D3) pantoprazole 40 mg tablet,delayed 40 mg PO BID 07/31/24 07/31/24 History release Allergies Allergy/AdvReac Type Severity Reaction Status Date / Time simvastatin [From Zocor] Allergy Unknown myalgia Verified 05/29/24 10:37 Past Med/Surg History Problem List (Updated 07/31/24 @ 18:13 by Dalton Chaudhary PA-C) UTI (urinary tract infection) (Acute) Palpitations Nonsustained ventricular tachycardia SVT (supraventricular tachycardia) Esophageal dysphagia 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, 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 Chronic respiratory failure with hypoxia Nocturnal hypoxia Secondary hyperparathyroidism COVID-19 (Acute) Acute kidney injury superimposed on chronic kidney disease Multiple closed fractures of ribs of right side (Acute) Fall from standing (Acute) Colon cancer screening Lightheadedness History of hematuria Anemia due to chronic kidney disease Vitamin D deficiency resolved Acute kidney injury (Acute) History of loop recorder Sinus pause Elevated prostate specific antigen (PSA) Bladder neck contracture Hypersomnia Ex-smoker Exertional shortness of breath Neurogenic bladder Anticoagulant long-term use Acute kidney injury (Acute) Atrial fibrillation hx- pacemaker placed 07/05/23 currently on eliquis; dr. 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 BPH NOS w ur obs/LUTS Sinus tachycardia Hx of tachycardia-bradycardia syndrome Secondary hyperparathyroidism HTN (hypertension) Hx of cancer of lung dx 2019, sx and chemo COPD (chronic obstructive pulmonary disease) daily and prn inh Atrial fibrillation hx- pacemaker placed 07/05/23 currently on eliquis; marni parker Anticoagulant long-term use Stage 3 chronic kidney disease follows w/ Dr Young Anemia due to chronic kidney disease receiving iron infusions 09/2023 Nocturnal hypoxia Chronic respiratory failure Esophageal dysphagia improved 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, tachy-jourdan syndrome-Dr Jimenez On home oxygen therapy 2 lpm via NC at night and prn during the day SOB (shortness of breath) on exertion History of COVID-19 03/2023 no hosp; resolved Neurogenic bladder Macular degeneration of right eye GERD (gastroesophageal reflux disease) Hyperlipidemia Self-catheterizes urinary bladder Glaucoma both eyes Surgical History Status post placement of cardiac pacemaker pacemaker placed 07/05/23 currently on eliquis; marni parker History of loop recorder removed 06/2023, mn w/dr. jimenez Hx of hernia repair as a baby Hx of colonoscopy Hx of bilateral cataract extraction History of lobectomy of lung 2019, lt lower lobe due to cancer, also received chemo Hx of transurethral resection of prostate Family History Mother Lung cancer Diabetes Father Lung cancer Social History Smoking Status: Former smoker Tobacco Type: Cigarettes Age Started Using Tobacco: 20; Age Quit Using Tobacco: 67; packs per day: 2; Second Hand Exposure: No; Do You Dip or Chew Tobacco: No; Hx Alcohol Use: No Hx Substance Use: No Preferred Language: Guamanian Communication Ability: Effective Fish And Wildlife Technician Required: No Beliefs That Will Affect Care: None marital status: Single Current Living Situation: Alone current occupational status: retired Feels Safe at Home: Yes Assistive Devices: None Review of Systems A total of 10 systems reviewed and were otherwise negative Physical Exam Vital Signs Vital Signs - 24 hr 07/31/24 10:22 07/31/24 11:13 Temperature 36.7 C Temperature Source Temporal Artery Scan Pulse Rate 83 Pulse Rate [Right Finger] 76 Respiratory Rate 20 18 Respiratory Effort / Characteristics Non-Labored Spontaneous Non-Labored Respiratory Depth Normal Normal Respiratory Pattern Regular Blood Pressure 143/87 H Blood Pressure [Right Arm] 118/95 Blood Pressure Mean 105 Blood Pressure Mean [Right Arm] 102 Blood Pressure Position [Right Arm] Lying Pulse Oximetry 94 96 Oxygen Delivery Method Room Air Room Air Sepsis Recent Fever Within 48 Hours No Sepsis New/Unexplained Change in Mental Status N/A Sepsis Action Taken by Nursing No Action Required VITAL SIGNS - Vital signs and nursing notes were reviewed. Stable and afebrile. Mildly hypertensive. GENERAL -83-year-old male appearing his stated age who is in no acute distress. Communicates well with provider and answers questions appropriately. SKIN - Without rashes. No meningeal or petechial rash. HEAD - NC/AT. EYES - PERRL with EOMI bilaterally. Sclera anicteric. EARS - No deformities of external structures noted on gross examination bilaterally. NOSE - Midline and without cyanosis. No epistaxis or purulent drainage noted. MOUTH/OROPHARYNX - Without perioral cyanosis. NECK - Neck with FROM. No nuchal rigidity. LUNGS - CTA CARDIAC - RRR ABDOMEN - Abdominal contour normal without pulsations or visible masses. BS normoactive all four quadrants. No tenderness, palpable masses, hepatospl enomegaly, or ascites noted. EXTREMITIES- +5/5 strength noted in UE/LE bilaterally. NEUROLOGIC - Cranial nerves grossly intact. PSYCH -alert, oriented and pleasant on exam. Course Administered Medications Discontinued Medications Ceftriaxone Sodium (Rocephin) 2,000 mg in 50 mls @ 100 mls/hr IV NOW STA Stop: 07/31/24 12:16 Last Infusion: 07/31/24 13:00 Dose: Infused Documented By: Admin: 07/31/24 12:15 Dose: 100 mls/hr Documented By: NOEMI Lidocaine HCl (Lidocaine 2% Jelly 5 Ml Tube) 1 ml EXT NOW ONE Stop: 07/31/24 10:47 Last Admin: 07/31/24 11:13 Dose: 1 ml Documented By: [facility] Medical Decision Making Laboratory Data Lab Results 07/31/24 07/31/24 07/31/24 Range/Units 11:16 11:27 13:03 Lactate 1.0 (0.4-2.0) mmol/L Procalcitonin 1.49 H (0-0.5) ng/ml Urine Color Yellow Urine Appearance Clear (Clear) Urine pH 7.0 (4.5-7.5) Ur Specific [place] 1.015 (1.000-1.030) Urine Protein Negative (Negative) Urine Glucose (UA) 2+ H (Negative) Urine Ketones Negative (Negative) Urine Blood Trace-lysed H (Negative) Urine Nitrite Negative (Negative) Urine Bilirubin Negative (Negative) Urine Urobilinogen Negative (Negative) Ur Leukocyte Esterase Negative (Negative) Urine RBC 0-2 (0-2) /hpf Urine WBC 11-20 H (0-5) /hpf Ur Epithelial Cells 0-2 (0-2) /hpf Urine Bacteria None Seen (None Seen) MDM Narrative Patient was seen and evaluated as above in room D09. Review was performed of triage nursing notes and vital signs. I did review pertinent previous visits and patient history. After obtaining a thorough history and physical examination the above work up was performed. Patient presents to us today for evaluation of trouble self cathing noting pain within the urethra when he attempts to cath. Options of care were discussed with the patient. IV access was established. P atient had labs earlier today just prior to arrival which I did review. Leukocytosis noted. Creatinine near baseline. Procalcitonin elevated 1.49. Lactate normal. Wood catheter placed. Urinalysis reveals concern for infection. IV antibiotics ordered. Noting the leukocytosis, procalcitonin elevation, reported fever at home now with concern for UTI I do believe that further evaluation and management in inpatient setting is warranted. Case discussed with the hospitalist service. Please refer to further documentation regarding his stay. GCS: 15 In the evaluation and treatment of this patient the following differential diagnoses were entertained: UTI, pyelonephritis, urethral obstruction, urethritis, among others. Impression & Plan UTI (urinary tract infection) Discharge Plan Visit Data Chief Complaint: Catheter Replacement Stated Complaint: TROUBLE CATHERIZING ED Provider: Soraida Campoverde ED Midlevel Provider: Dalton Chaudhary Discharge Problem: UTI (urinary tract infection) Patient Disposition: Admitted As Inpatient Condition: Good Discharge Instructions Interventions: ED Discharge Assessment Last Done: 07/31/24 17:44
[2024-07-31] MEDS: LIDOCAINE 2% JELLY 5 ML TUBE EXT ONE (11:13)
[2024-07-31 11:59] LABS: Appearance Urine Clear (Clear); Bilirubin Urine Negative (Negative); Blood Urine Trace-lysed (Negative); Color Urine Yellow; Glucose Urine UA 2+ (Negative); Ketones Urine Negative (Negative); Leukocyte Esterase Urine Negative (Negative); Nitrite Urine Negative (Negative); Protein Urine Negative (Negative); Specific Gravity Urine 1.015 (1.000-1.030); Urobilinogen Urine Negative (Negative)
[2024-07-31 12:10] LABS: Epithelial Cell Urine 0-2 /hpf (0-2); RBC Urine 0-2 /hpf (0-2)
[2024-07-31 12:11] LABS: Bacteria Urine None Seen (None Seen)
[2024-07-31] MEDS: cefTRIAXone SODIUM 2,000 MG/50 ML BAG IV STA (12:15)
--- NOTE | 2024-07-31 14:09 | History & Physical Report ---
Date of Service July 31, 2024 Assessment & Plan (1) UTI (urinary tract infection): Plan Camilo is a 83-year-old gentleman with history of neurogenic bladder, BPH, hip and straight cath for 10-year, CKD, lung cancer s/p surgery 5 to 6 years ago, A- fib on Eliquis, sick sinus syndrome pacemaker, AAA Since 3 to 4 days ago he been having difficulty with straight cathing himself, he went to outpatient clinic found to have WBC of 15, he was hypothermic at 36.7 He presented to the emergency room receive IV antibiotic recommend admission for IV antibiotics for 48-hour, they sent for urine culture He is full code he is AO x 3 on room air UTI, neurogenic bladder, BPH ceftriaxone for 48-72 hours. f/u on urine culture has davis remained for 2-3 weeks, need urology eval for urethral stricture CKD, baseline creatinine of 1.9--2.1, avoid fluid restriction. he's on farxiga and lisinopril hold lisinorpil for tuesday morning A-fib on eliquis, s/p pacemaker metoprolol XL 50mg BID, eliquis 5 BID, s/p pacemaker insertion hx of lung cancer s/p surgery 6 years ago Left lower lobe at [facility] s/p chemotherapy COPD, room air at baseline, he's take Dulera inhaler BID as admitted in April 2024 for copd exacerbation AAA-avoid fluroquinoline code status full code healthcare decision maker, daughter Admission and Anticipated Discharge Date Admission Date: July 31, 2024 Anticipated date of discharge: 08/01/24 History of Present Illness Chief Complaint: difficulty davis for 3-4 days high WBC of 15, UTI Primary Care Provider: Mir Francis, BREE-C Camilo Dasilva is a 83 yo male with hx of BPH, neurogenic bladder (self cath for 10 years), COPD, hx of lung cancer (s/p surgery at [facility]), CKD, baseline creatinine of 1.9-2.0, AAA He was hospitalized in April of this year. Influenza COPD exacerbation and pneumonia He been following with urology and recommend prostate evaluation, his urologist recently retired Since 3 or 4 days ago he been having difficulty cathing himself, dysuria He went to have outpatient lab completed he was found to have WBC of 15, he was hypothermic temperature 36.7 He was started on IV antibiotic and recommend admission for IV antibiotic for UTI. On interview he denies any flank pain denies any hematuria denies any history of kidney stone On efficacy straight cath about 4 times a day No chest pain no shortness of breath Denies history of urological procedure denies history of kidney stone Allergies Allergy/AdvReac Type Severity Reaction Status Date / Time simvastatin [From Zocor] Allergy Unknown myalgia Verified 05/29/24 10:37 Home Medications Medication Instructions Recorded Confirmed Type atorvastatin 20 mg tablet 20 mg PO HS 11/05/21 07/31/24 History vitamins A,C,H-wvdj-zwgjkn 2,148 1 tab PO BID 02/16/23 07/31/24 History mcg-113 mg-45 mg-17.4 mg tablet (PreserVision AREDS) apixaban 5 mg tablet (Eliquis) 2.5 mg PO BID 05/30/23 07/31/24 History Oxygen Home #1 ea 10/03/23 05/29/24 Rx ascorbic acid (vitamin C) 500 mg 250 mg PO DAILY 01/05/24 07/31/24 History tablet ciclopirox 8 % topical solution 1 applic topical UD 01/05/24 07/31/24 History ferrous sulfate 325 mg (65 mg 325 mg PO DAILY 01/05/24 07/31/24 History iron) tablet metoprolol succinate 100 mg 100 mg PO DAILY 01/05/24 07/31/24 History tablet,extended release 24 hr cyanocobalamin (vitamin B-12) 500 500 mcg PO QAM #30 tabs 01/07/24 07/31/24 Rx mcg tablet magnesium oxide 400 mg PO DAILY #30 caps 01/07/24 07/31/24 Rx thiamine HCl (vitamin B1) 100 mg 100 mg PO BID #60 tabs 01/07/24 07/31/24 Rx tablet lisinopril 5 mg tablet 5 mg PO DAILY 02/02/24 07/31/24 History dapagliflozin propanediol 10 mg 10 mg PO DAILY #90 tabs 04/23/24 07/31/24 Rx tablet (Farxiga) mometasone-formoterol HFA 100 2 puff inhalation BID #3 Inhalers 05/04/24 07/31/24 Rx mcg-5 mcg/actuation aerosol inhaler (Dulera) calcitriol 0.25 mcg capsule 0.25 mcg PO 3XWK CKD #15 caps 07/16/24 07/31/24 Rx albuterol sulfate 90 mcg/actuation 2 puff inhalation Q6H PRN 07/31/24 07/31/24 History aerosol inhaler SOB/Wheezing cholecalciferol (vitamin D3) 25 2,000 mcg PO DAILY 07/31/24 07/31/24 History mcg (1,000 unit) tablet (Vitamin D3) pantoprazole 40 mg tablet,delayed 40 mg PO BID 07/31/24 07/31/24 History release Past Med/Surg History Problem List (Updated 07/31/24 @ 14:45 by Jocelin Mcmahon DO) UTI (urinary tract infection) Palpitations Nonsustained ventricular tachycardia SVT (supraventricular tachycardia) Esophageal dysphagia 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, 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 Chronic respiratory failure with hypoxia Nocturnal hypoxia Secondary hyperparathyroidism COVID-19 (Acute) Acute kidney injury superimposed on chronic kidney disease Multiple closed fractures of ribs of right side (Acute) Fall from standing (Acute) Colon cancer screening Lightheadedness History of hematuria Anemia due to chronic kidney disease Vitamin D deficiency resolved Acute kidney injury (Acute) History of loop recorder Sinus pause Elevated prostate specific antigen (PSA) Bladder neck contracture Hypersomnia Ex-smoker Exertional shortness of breath Neurogenic bladder Anticoagulant long-term use Acute kidney injury (Acute) Atrial fibrillation hx- pacemaker placed 07/05/23 currently on eliquis; marni parker COPD (chronic obstructive pulmonary disease) (Chronic) daily and prn inh Hypertension (Chronic) hx Medical History Influenza A Diabetes mellitus AAA (abdominal aortic aneurysm) without rupture ~8-10 yrs; recent eval [facility] 08/09/23 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 BPH NOS w ur obs/LUTS Sinus tachycardia Hx of tachycardia-bradycardia syndrome Secondary hyperparathyroidism HTN (hypertension) Hx of cancer of lung dx 2019, sx and chemo COPD (chronic obstructive pulmonary disease) daily and prn inh Atrial fibrillation hx- pacemaker placed 07/05/23 currently on eliquis; marni parker Anticoagulant long-term use Stage 3 chronic kidney disease follows w/ Dr Young Anemia due to chronic kidney disease receiving iron infusions 09/2023 Nocturnal hypoxia Chronic respiratory failure Esophageal dysphagia improved 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 jimenez, [facility] [place] of loop recorder removed 06/2023, [place] w/dr. jimenez Hx of hernia repair as a baby Hx of colonoscopy Hx of bilateral cataract extraction History of lobectomy of lung 2019, lt lower lobe due to cancer, also received chemo Hx of transurethral resection of prostate Family History Mother Lung cancer Diabetes Father Lung cancer Social History Smoking Status: Former smoker Tobacco Type: Cigarettes Age Started Using Tobacco: 20; Age Quit Using Tobacco: 67; packs per day: 2; Second Hand Exposure: No; Do You Dip or Chew Tobacco: No; Hx Alcohol Use: No Hx Substance Use: No Preferred Language: Telugu Communication Ability: Effective Physical Biochemist Required: No Beliefs That Will Affect Care: None marital status: Single Current Living Situation: Alone current occupational status: retired Feels Safe at Home: Yes Assistive Devices: None Review of Systems Review of Systems: Constitutional: No Weight Change, No Fever, No Chills, No Night Sweats, No Fatigue, No Malaise Cardiovascular: No Chest Pain, No SOB, No PND, No Dyspnea on Exertion pulmonary: + for COPD, negative for limitation of exercise tolerance; negative for oxygen dependence Gastrointestinal: No Nausea, No Vomiting, No Diarrhea, no abdominal pain Genitourinary: + for difficulty davis; no hematuria; no hesistancy; no hx of renal stones + for BPH Musculoskeletal: No Arthralgias, No Myalgias, No Joint Swelling, No Joint Stiffness, No Back Pain, No Neck Pain, No Injury History Neuro: No Weakness, No Numbness, No Paresthesias, No Loss of Consciousness, No Syncope, No Dizziness, No Headache, No Coordination Changes, No Recent [place] oncology: + for lung cancer (left lower lobe 6 years ago), s/p surgery at [facility] Endocrine: denied ongoing diabetes. Physical Exam Physical Exam: VITALS: Reviewed. WEIGHT/BMI reviewed. GEN: Healthy appearing, well-developed, NAD. -Head: NC/AT; -Eyes: PERRL, EOMI. No discharge or redn ess; NECK: Supple, with no masses. CV: RRR, no m/r/g. LUNGS: CTAB, no w/r/c. decrease breath sound ABD: Soft, NT/ND, NBS, no masses or organomegaly. : + for davis catheter; no CVA tenderness; SKIN: Warm, well perfused. No skin rashes or abnormal lesions. EXT: No clubbing, cyanosis, or edema. NEURO: AAox3; following command; no tremor. Results & Data Results & Data Vital Signs (Past 12 Hours) Vital Signs Temp Pulse Pulse Resp BP BP Pulse Ox 07/31/24 11:13 76 18 118/95 96 07/31/24 10:22 36.7 C 83 20 143/87 H 94 O2 Del Method 07/31/24 11:13 Room Air 07/31/24 10:22 Room Air Laboratory Results Laboratory Results - last 72 hr 07/31/24 07/31/24 07/31/24 11:16 11:27 13:03 Lactate 1.0 Procalcitonin 1.49 H Urine Color Yellow Urine Appearance Clear Urine pH 7.0 Ur Specific [place] 1.015 Urine Protein Negative Urine Glucose (UA) 2+ H Urine Ketones Negative Urine Blood Trace-lysed H Urine Nitrite Negative Urine Bilirubin Negative Urine Urobilinogen Negative Ur Leukocyte Esterase Negative Urine RBC 0-2 Urine WBC 11-20 H Ur Epithelial Cells 0-2 Urine Bacteria None Seen Medications Administered Home Medications atorvastatin 20 mg tablet 20 mg PO HS 11/05/21 [History Confirmed 07/31/24] vitamins A,C,N-vyuy-pdjsro 2,148 mcg-113 mg-45 mg-17.4 mg tablet (PreserVision AREDS) 1 tab PO BID 02/16/23 [History Confirmed 07/31/24] apixaban 5 mg tablet (Eliquis) 2.5 mg PO BID 05/30/23 [History Confirmed 07/31/24] Oxygen Home #1 ea 10/03/23 [Rx Confirmed 05/29/24] ascorbic acid (vitamin C) 500 mg tablet 250 mg PO DAILY 01/05/24 [History Confirmed 07/31/24] ciclopirox 8 % topical solution 1 applic topical UD 01/05/24 [History Confirmed 07/31/24] ferrous sulfate 325 mg (65 mg iron) tablet 325 mg PO DAILY 01/05/24 [History Confirmed 07/31/24] metoprolol succinate 100 mg tablet,extended release 24 hr 100 mg PO DAILY 01/05/24 [History Confirmed 07/31/24] cyanocobalamin (vitamin B-12) 500 mcg tablet 500 mcg PO QAM #30 tabs 01/07/24 [Rx Confirmed 07/31/24] magnesium oxide 400 mg PO DAILY #30 caps 01/07/24 [Rx Confirmed 07/31/24] thiamine HCl (vitamin B1) 100 mg tablet 100 mg PO BID #60 tabs 01/07/24 [Rx Confirmed 07/31/24] lisinopril 5 mg tablet 5 mg PO DAILY 02/02/24 [History Confirmed 07/31/24] dapagliflozin propanediol 10 mg tablet (Farxiga) 10 mg PO DAILY #90 tabs 04/23/24 [Rx Confirmed 07/31/24] mometasone-formoterol HFA 100 mcg-5 mcg/actuation aerosol inhaler (Dulera) 2 puff inhalation BID #3 Inhalers 05/04/24 [Rx Confirmed 07/31/24] calcitriol 0.25 mcg capsule 0.25 mcg PO 3XWK CKD #15 caps 07/16/24 [Rx Confirmed 07/31/24] albuterol sulfate 90 mcg/actuation aerosol inhaler 2 puff inhalation Q6H PRN SOB/Wheezing 07/31/24 [History Confirmed 07/31/24] cholecalciferol (vitamin D3) 25 mcg (1,000 unit) tablet (Vitamin D3) 2,000 mcg PO DAILY 07/31/24 [History Confirmed 07/31/24] pantoprazole 40 mg tablet,delayed release 40 mg PO BID 07/31/24 [History Confirmed 07/31/24] Code Status & VTE Plan Code Status Full Code He's designated his daughter to be the health care decision maker PG Care Time/CCT Total # of Minutes Spent Total Time Spent: 25 Total Time Spent with Patient: Total time spent is greater than 50% in coordination of care (as documented) at patient's floor/unit and/or counseling patient: Coding Level of Care Code 84548 INT INP/OBS CARE 140MIN Diagnoses UTI (urinary tract infection) N39.0
--- NOTE | 2024-07-31 14:54 | XRay Report ---
XR chest 1V portable CLINICAL HISTORY: Sepsis COMPARISON STUDY: 06/15/2024 FINDINGS: Stable pacemaker. Stable mild cardiomegaly without pulmonary vascular congestion. Stable op erative changes on the left with stable pleural scarring at the left base. No new consolidation or pl eural effusion. No pneumothorax. Stable old right rib fractures. IMPRESSION: Stable exam. ACT 112: Negative or not required by law. Electronically signed by: Clint Davidson M.D. 07/31/2024 2:53 PM
--- NOTE | 2024-07-31 15:36 | Urology Consultation ---
Date of Consultation July 31, 2024 Assessment & Plan (1) Neurogenic bladder: (2) Bladder neck contracture: (3) UTI (urinary tract infection): 83 yo/M who follows with urology for hx of BPH with LUTS [facility], bladder neck contracture, and neurogenic bladder managed with CIC. He presented to ED with difficulty performing CIC and was admitted for suspected UTI. Patient afebrile and hemodynamically stable Labs reviewedcreatinine 2.18, similar to his baseline; WBC 15.35 Urinalysis was not overly suspicious for infection Urine and blood cultures are pending Continue antibiotics per hospital medicine service, follow culture data Wood catheter was placed by nursing in the ED and is draining appropriately with clear yellow urine Recommend maintain Wood catheter upon discharge until f/u with urology No acute intervention at this time Keep scheduled outpatient follow-up with urology next week to discuss ongoing management We discussed possible etiologies including bladder neck contracture, urethral stricture and others Discussed possible cystoscopy as outpatient for further evaluation, all questions answered will sign off, contact our service with any additional questions or concerns History of Present Illness Reason for Consultation: difficult with straight cath, r/o urethral strict Requesting Physician: Dr. Mcmahon History of Present Illness This is an 83-year-old male who is followed by urology for BPH with LUTS status [facility], bladder neck contracture, and neurogenic bladder managed with CIC. He presented to the emergency department today for evaluation of difficulty performing catheterization. On arrival to ED, he was afebrile and hemodynamically stable. Outpatient lab work performed today showed creatinine 2.18, WBC 15.35, hemoglobin 15.1. PSA 3.684. Urinalysis showed trace lysed blood, 11-20 WBC, otherwise negative. Wood catheter was placed in ED. He was admitted to hospital medicine service for suspected UTI. Urology is consulted for difficulty catheterizing. Patient seen and examined in the emergency department. He is awake and resting in bed. Wood intact. He typically performs CIC about 4 times per day for the past 10 years. He reports occasional difficulty with catheterization, utilizes straight and coude catheters. He reports he developed urinary urgency last night and performed more frequent catheterization, but then subsequently developed difficulty passing the catheters and associated pain. Denies flank or suprapubic pain at present. He reports some mild discomfort at the meatus. Reports fever at home 2 days ago, but no fever or chills since then. He has a urology follow-up scheduled next week. Allergies Allergy/AdvReac Type Severity Reaction Status Date / Time simvastatin [From Zocor] Allergy Unknown myalgia Verified 05/29/24 10:37 Home Medications Medication Instructions Recorded Confirmed Type atorvastatin 20 mg tablet 20 mg PO HS 11/05/21 07/31/24 History vitamins A,C,C-neub-uasopo 2,148 1 tab PO BID 02/16/23 07/31/24 History mcg-113 mg-45 mg-17.4 mg tablet (PreserVision AREDS) apixaban 5 mg tablet (Eliquis) 2.5 mg PO BID 05/30/23 07/31/24 History Oxygen Home #1 ea 10/03/23 05/29/24 Rx ascorbic acid (vitamin C) 500 mg 250 mg PO DAILY 01/05/24 07/31/24 History tablet ciclopirox 8 % topical solution 1 applic topical UD 01/05/24 07/31/24 History ferrous sulfate 325 mg (65 mg 325 mg PO DAILY 01/05/24 07/31/24 History iron) tablet metoprolol succinate 100 mg 100 mg PO DAILY 01/05/24 07/31/24 History tablet,extended release 24 hr cyanocobalamin (vitamin B-12) 500 500 mcg PO QAM #30 tabs 01/07/24 07/31/24 Rx mcg tablet magnesium oxide 400 mg PO DAILY #30 caps 01/07/24 07/31/24 Rx thiamine HCl (vitamin B1) 100 mg 100 mg PO BID #60 tabs 01/07/24 07/31/24 Rx tablet lisinopril 5 mg tablet 5 mg PO DAILY 02/02/24 07/31/24 History dapagliflozin propanediol 10 mg 10 mg PO DAILY #90 tabs 04/23/24 07/31/24 Rx tablet (Farxiga) mometasone-formoterol HFA 100 2 puff inhalation BID #3 Inhalers 05/04/24 07/31/24 Rx mcg-5 mcg/actuation aerosol inhaler (Dulera) calcitriol 0.25 mcg capsule 0.25 mcg PO 3XWK CKD #15 caps 07/16/24 07/31/24 Rx albuterol sulfate 90 mcg/actuation 2 puff inhalation Q6H PRN 07/31/24 07/31/24 History aerosol inhaler SOB/Wheezing cholecalciferol (vitamin D3) 25 2,000 mcg PO DAILY 07/31/24 07/31/24 History mcg (1,000 unit) tablet (Vitamin D3) pantoprazole 40 mg tablet,delayed 40 mg PO BID 07/31/24 07/31/24 History release Patient History Medical History Influenza A Diabetes mellitus AAA (abdominal aortic aneurysm) without rupture ~8-10 yrs; recent eval [facility] 08/09/23 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 BPH NOS w ur obs/LUTS Sinus tachycardia Hx of tachycardia-bradycardia syndrome Secondary hyperparathyroidism HTN (hypertension) Hx of cancer of lung dx 2018, sx and chemo COPD (chronic obstructive pulmonary disease) daily and prn inh Atrial fibrillation hx- pacemaker placed 07/05/23 currently on eliquis; marni parker Anticoagulant long-term use Stage 3 chronic kidney disease follows w/ Dr Young Anemia due to chronic kidney disease receiving iron infusions 09/2023 Nocturnal hypoxia Chronic respiratory failure Esophageal dysphagia improved 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 jimenez Hx of hernia repair as a baby Hx of colonoscopy Hx of bilateral cataract extraction History of lobectomy of lung 2019, lt lower lobe due to cancer, also received chemo Hx of transurethral resection of prostate Family History Mother Lung cancer Diabetes Father Lung cancer Social History Smoking Status: Former smoker Tobacco Type: Cigarettes Age Started Using Tobacco: 20; Age Quit Using Tobacco: 67; packs per day: 2; Second Hand Exposure: No; Do You Dip or Chew Tobacco: No; Hx Alcohol Use: No Hx Substance Use: No Preferred Language: Hungarian Communication Ability: Effective Wine Blender Required: No Beliefs That Will Affect Care: None marital status: Single Current Living Situation: Alone current occupational status: retired Feels Safe at Home: Yes Assistive Devices: None Review of Systems Review of Systems: All systems reviewed & are unremarkable except as noted in HPI & below Physical Exam Constitutional: well developed and well nourished; no acute distress Respiratory: normal respiratory effort; no respiratory distress and no labored breathing Gastrointestinal (Abdomen): Inspection/Auscultation: abdomen normal to inspection Musculoskeletal: Head/Neck/Chest: normocephalic Neurologic: moves all extremities and awake Psychiatric: Orientation: alert and oriented x 3 Genitourinary: Wood draining clear yellow urine Results & Data Vital Signs (Past 12 Hours) Vital Signs Temp Pulse Pulse Resp BP BP Pulse Ox 07/31/24 11:13 76 18 118/95 96 07/31/24 10:22 36.7 C 83 20 143/87 H 94 O2 Del Method 07/31/24 11:13 Room Air 07/31/24 10:22 Room Air PG Care Time/CCT Total # of Minutes Spent Total Time Spent with Patient: Total time spent is greater than 50% in coordination of care (as documented) at patient's floor/unit and/or counseling patient: Coding Level of Care Code 76610 INT INP/OBS CARE 2/55MIN Diagnoses Neurogenic bladder N31.9 Bladder neck contracture N32.0 UTI (urinary tract infection) N39.0
[2024-07-31] MEDS ORDERED: MELATONIN 3 MG TAB PO PRN (17:41)
[2024-07-31] MEDS ORDERED: ALBUTEROL HFA 8 GM INHALER INH PRN (17:41)
[2024-07-31] MEDS ORDERED: POLYETHYLENE (MIRALAX) 17 GM PACK PO PRN (17:41)
[2024-07-31 20:50] VITALS: O2SAT 94
[2024-07-31] MEDS: PANTOprazole 40 MG TAB PO SCH (21:32)
[2024-07-31] MEDS: APIXABAN 2.5 MG TAB PO SCH (21:32)
[2024-07-31] MEDS: THIAMINE HCL 100 MG TAB PO SCH (21:32)
[2024-07-31] MEDS: ATORVASTATIN 20 MG TAB PO SCH (21:32)
[2024-07-31] MEDS: METOPROLOL SUCC 50MG EXT REL TAB PO SCH (21:34)
[2024-07-31] MEDS: ACETAMINOPHEN 325 MG TAB PO PRN (23:25)
[2024-08-01 07:32] VITALS: RESP 16
[2024-08-01 08:18] LABS: Basophils # (auto) 0.05 K/uL (0.00-0.20); Basophils % (auto) 0.5 %; Hematocrit (blood only) 40.5 % (42.0-52.0); Hemoglobin 13.6 g/dl (14.0-18.0); Immature Granulocytes # (auto) 0.16 K/uL (0.01-0.20); Immature Granulocytes % (auto) 1.6 %; Lymphocytes % (auto) 17.3 %; Mean Corpuscular Hemoglobin 30.6 pg (25.0-34.0); Mean Corpuscular Hgb Conc 33.6 g/dL (32.0-36.0); Mean Platelet Volume 9.3 fL (9.4-12.4); Monocytes # (auto) 1.04 K/uL (0.11-0.59); Monocytes % (auto) 10.6 %; Neutrophils # (auto) 6.79 K/uL (1.40-6.50); Platelet Count 149 K/uL (130-400); RDW Standard Deviation 47.1 fL (36.4-46.3); Red Blood Count 4.45 M/uL (4.70-6.10); White Blood Count 9.84 K/ul (4.8-10.8)
[2024-08-01] MEDS: CYANOCOBALAMIN (B-12) 500 MCG TABLET PO SCH (08:22)
[2024-08-01] MEDS: ASCORBIC ACID 500 MG TAB PO SCH (08:22)
[2024-08-01] MEDS: FERROUS SULFATE 325 MG TAB PO SCH (08:22)
[2024-08-01] MEDS: CHOLECALCIFEROL 25 MCG (1000 UNITS) TAB PO SCH (08:22)
[2024-08-01] MEDS: CEROVITE ADV FORMULA TAB PO SCH (08:23)
[2024-08-01] MEDS: CALCITRIOL 0.25 MCG CAPSULE PO SCH (08:23)
[2024-08-01] MEDS: MAGNESIUM OXIDE 400 MG TAB PO SCH (08:23)
[2024-08-01] MEDS: FLUTICASONE/VILANTEROL 100/25MCG 14 PUFFS/INHALER INH SCH (08:25)
[2024-08-01 08:51] LABS: Albumin Level 3.7 gm/dl (3.4-5.0); Bilirubin Direct 0.3 mg/dl (0-0.2); Bilirubin,Total 1.3 mg/dl (0.2-1.0); Calcium 9.3 mg/dl (8.6-10.3); Potassium 4.5 mmol/L (3.5-5.1)
[2024-08-01 08:57] LABS: BUN Creatinine Ratio 11.1 (10-20); Creatinine Clr Calc Pharmacy 28.5 ml/min; Total Protein 6.4 gm/dl (6.0-8.3)
[2024-08-01] MEDS: cefTRIAXone SODIUM 2,000 MG/50 ML BAG IV SCH (12:05)
[2024-08-01] MEDS: hydrALAZINE HCL 25 MG TAB PO SCH (12:21)
[2024-08-01 14:22] VITALS: BP 107/58; PULSE 68; TEMP 97.5
[2024-08-01] MEDS: LIDOCAINE 2% JELLY 5 ML TUBE EXT SCH (15:59)
--- NOTE | 2024-08-01 17:38 | Discharge Summary ---
Discharge Summary Date of Service August 01, 2024 Principal Dx & Hospital Course #1 = Principal Diagnosis (1) UTI (urinary tract infection): augmentin 500 BID for 10 days recheck urine analysis in f/u appointment Plan Camilo is a 83-year-old gentleman with history of neurogenic bladder, BPH, hip and straight cath for 10-year, CKD, lung cancer s/p surgery 5 to 6 years ago, A- fib on Eliquis, sick sinus syndrome pacemaker, AAA Since 3 to 4 days ago he been having difficulty with straight cathing himself, he went to outpatient clinic found to have WBC of 15, he was hypothermic at 36.7 He presented to the emergency room receive IV antibiotic recommend admission for IV antibiotics for 48-hour, they sent for urine culture He is full code he is AO x 3 on room air UTI, neurogenic bladder, BPH ceftriaxone for 48-72 hours. f/u on urine culture has davis remained for 2-3 weeks, need urology eval for urethral stricture CKD, baseline creatinine of 1.9--2.1, avoid fluid restriction. he's on farxiga and lisinopril hold lisinorpil for tuesday morning A-fib on eliquis, s/p pacemaker metoprolol XL 50mg BID, eliquis 5 BID, s/p pacemaker insertion hx of lung cancer s/p surgery 6 years ago Left lower lobe at [facility] s/p chemotherapy COPD, room air at baseline, he's take Dulera inhaler BID as admitted in April 2024 for copd exacerbation AAA-avoid fluroquinoline code status full code healthcare decision maker, daughter Notes For Next Care Provider repeat BMP to assess for potassium and creatinine value Medication Changes From Visit he's normally take metoprolol XL 50mg (twice a day) Admission HPI Per Admitting Provider Camilo Dasilva is a 83 yo male with hx of BPH, neurogenic bladder (self cath for 10 years), COPD, hx of lung cancer (s/p surgery at [facility]), CKD, baseline creatinine of 1.9-2.0, AAA He was hospitalized in April of this year. Influenza COPD exacerbation and pneumonia He been following with urology and recommend prostate evaluation, his urologist recently retired Since 3 or 4 days ago he been having difficulty cathing himself, dysuria He went to have outpatient lab completed he was found to have WBC of 15, he was hypothermic temperature 36.7 He was started on IV antibiotic and recommend admission for IV antibiotic for UTI. On interview he denies any flank pain denies any hematuria denies any history of kidney stone On efficacy straight cath about 4 times a day No chest pain no shortness of breath Denies history of urological procedure denies history of kidney stone Admission Exam Per Admitting Provider General: no acute distress heent: AT/NC : no CVA tenderness heart: normal s1; s2; RRR; no murmur lung: CTa b/l; no wheezing abdomen: soft to touch; non-tenderr : davis inserted; no penile trauma noted neuro: AAOx3 Discharge Exam VITALS: Reviewed. WEIGHT/BMI reviewed. GEN: Healthy appearing, well-developed, NAD. PSYCH: Good Judgment. AOx3. Normal memory, mood, and affect. HEENT -Head: NC/AT; -Eyes: PERRL, EOMI. No discharge or redness; LUNGS: CTAB, no w/r/c. ABD: Soft, NT/ND, NBS, no masses or organomegaly. : + for davis catheter; no CVA tenderness SKIN: Warm, well perfused. No skin rashes or abnormal lesions. MSK: No deformities, Normal gait. EXT: No clubbing, cyanosis, or edema. NEURO: Ambulating with no limitations. Normal muscle strength and tone. No focal deficits. Discharge Plan Discharge Items Patient Disposition: Home - Self-Care Reason For Visit: UTI, WBC OF 15; Discharge Diagnosis: complicated UTI Condition on Discharge: Good Health Concerns: avoid prolonged fasting Activity: Resume your previous activity Lifting: Gradually increase as tolerated and No more than 10 pounds Non-emergency contact: Primary Care Provider Call non-emergency contact if: your symptoms worsen, your pain is not controlled and your rectal temperature is above 100.4 Follow-up/Referrals: Mir Francis, ONSITE CASE MANAGER-C [Primary Care Provider] - Diet: Low Sodium (2gm) Addtl Attending Provider Instructions: you should repeat your kidney function (basic metabolic panel) in 48-72 hours your baseline creatinine value is 1.98---2.06 Procedure Result Verified Site Urine Culture Final 01/23/22-1231 Organism 1 Klebsiella pneumoniae [place] Count >100,000 CFU/ml Sens Sensitivities to Follow Kleb pneum RX M.I.C. --- --------- Amox/Clav S <=8/4 Amp/Sul S <=8/4 Cefazolin S <=2 Cefepime S <=2 Ceftriaxone S <=1 Ciprofloxacin S <=0.25 Ertapenem S <=0.5 Gentamicin S <=4 Levofloxacin S <=0.5 Meropenem S <=1 Nitrofurantoin I 64 Tobramycin S <=4 Trimeth/Sulfa S <=2/38 Pip/Tazo S <=16 Pending Studies at Discharge: Yes Studies:: BMP and CBC in 3-4 days Stand-Alone Forms: My [facility] Tackle Grab, Smoking Cessation Medications and DC Order Prescriptions: New lidocaine HCl 2 % Jelly In Applicator 30 ml EXT DAILY 10 Days Qty: 100 0RF amoxicillin-pot clavulanate [Augmentin] 500-125 mg tablet 1 tab PO BID Qty: 20 0RF Continued (DME) Oxygen Home Liters Per Minute See Rx Instructions .Route Qty: 1 0RF Rx Instructions: Oxygen at 2lpm via NC with activity and sleep ROMAN 99 dapagliflozin propanediol [Farxiga] 10 mg tablet 10 mg PO DAILY Qty: 90 3RF calcitriol 0.25 mcg capsule 0.25 mcg PO 3XWK Qty: 15 3RF Rx Instructions: TAKES SUN, TUES, & THURS Eliquis 5 mg tablet 2.5 mg PO BID Dulera 100-5 mcg/actuation HFA aerosol inhaler 2 puff inhalation BID Qty: 3 1RF lisinopril 5 mg tablet 5 mg PO DAILY metoprolol succinate 100 mg Tablet Extended Release 24 Hr 50 mg PO BID Rx Instructions: PER PT "IF TAKES ONCE DAILY B/P DROPS TOO MUCH, TAKES BID". ciclopirox 8 % Solution 1 applic topical DIRECTED Rx Instructions: PER PT "NOT USING". ferrous sulfate 325 mg (65 mg iron) Tablet 325 mg PO Q OTHER DAY cyanocobalamin (vitamin B-12) 500 mcg Tablet 500 mcg PO QAM Qty: 30 0RF Rx Instructions: TAKES EVERY OTHER DAY magnesium oxide 400 mg magnesium capsule 400 mg PO DAILY Qty: 30 0RF cholecalciferol (vitamin D3) [Vitamin D3] 25 mcg (1,000 unit) Tablet 1,000 mcg PO BID pantoprazole 40 mg tablet,delayed release (DR/EC) 40 mg PO BID albuterol sulfate 90 mcg/actuation HFA aerosol inhaler 2 puff INHALATION Q6H PRN (Reason: SOB/Wheezing) atorvastatin [Lipitor] 40 mg Tablet 20 mg PO HS PreserVision AREDS-2 250-90-40-1 mg Capsule 1 tab PO BID Discharge Orders: Discharge Order (Routine); Ordered 08/01/24 Ordered By: Jocelin Krause/Other Patient Handouts: UTIs, Kidney Disease Reducing Potassium, Kidney Disease: Eating Less Sodium, ED Urinary Retention, Male Admission Data Admit Date/Time: 07/31/24 14:42 Attending Provider: Jocelin Mcmahon Admit Provider: Jocelin Mcmahon Primary Care Provider: Mir Francis Other Providers: Jocelin Mcmahon; Nyasia Escobedo; [facility],Hospital Hospital Stay Data Consultations 07/31/24 13:04 ED Decision to Admit Stat 07/31/24 17:41 Consult Urology Routine Procedures Performed Davis inserted liodcaine gel to the davis catheter IV ceftriaxone Pending Results Patient Have Any Pending Studies at Discharge: Yes Discharge Instructions Given to Patient (Per Discharging Provider) you should repeat your kidney function (basic metabolic panel) in 48-72 hours your baseline creatinine value is 1.98---2.06 Procedure Result Verified Site Urine Culture Final 01/23/22-1231 Organism 1 Klebsiella pneumoniae [place] Count >100,000 CFU/ml Sens Sensitivities to Follow Kleb pneum RX M.I.C. --- --------- Amox/Clav S <=8/4 Amp/Sul S <=8/4 Cefazolin S <=2 Cefepime S <=2 Ceftriaxone S <=1 Ciprofloxacin S <=0.25 Ertapenem S <=0.5 Gentamicin S <=4 Levofloxacin S <=0.5 Meropenem S <=1 Nitrofurantoin I 64 Tobramycin S <=4 Trimeth/Sulfa S <=2/38 Pip/Tazo S <=16 Total Time Total Time Spent Total Time Spent (In Minutes): 40 minutes Coding Level of Care Code 92211 INP/OBS DISCH >30 MIN Diagnoses UTI (urinary tract infection) N39.0
== END 2024-08-01 18:14 | disposition home or self-care (01) | DRG 690 ==
LOC: SUATTDRO → ED 09:57 → EDINP 14:42 → 3W 20:30